=== PATIENT | male | born 1990 | race Caucasian/White ===

== ENCOUNTER 2023-08-17 06:54 | Emergency (ER) | payer MEDICAID, SELFPAY ==
[2023-08-17 07:13] VITALS: BP 134/85; PULSE 73; RESP 16; TEMP 36.7; O2SAT 99; BMI 34.4
--- NOTE | 2023-08-17 07:44 | ED_ITS ---
HPI - Headache General Chief Complaint: Headache Stated Complaint: Headache Time Seen by Provider: 08/17/23 07:36 Source: patient and interpreter and translator Mode of arrival: ambulatory Limitations: no limitations History of Present Illness HPI Narrative: 32 year old male with pmhx significant for HTN presents to the ED today with complaint of headache x1 day. Reports gradual onset of headache yesterday while at work. 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 Reports taking ibuprofen yesterday which temporarily reduced the pain. Reports waking up this morning with continued headache. Pain intensity rated 9/10. Describes pain as pounding in character and located on the left frontal aspect of his head. Additionally endorses intermittent blurred vision and photophobia. Denies flashes or floaters or vision loss. Denies hx of migraines. Reports taking his blood pressure this morning and it was normal. Reports taking his blood pressure medications this morning (losartan, amlodipine, metoprolol). Denies dizziness, scalp tenderness, jaw claudication, neck pain, chest pain, shortness of breath. Denies history of autoimmune disease. Additionally complains of acid reflux. Takes omeprazole for this at home and states this feels like his baseline. Related Data Previous Rx's Medication Instructions Recorded lisinopril 20 1 tab PO DAILY #30 tabs 07/22/20 mg-hydrochlorothiazide 12.5 mg tablet ondansetron 4 mg disintegrating 4 mg PO DAILY PRN nausea and 08/17/23 tablet vomiting 5 days #14 tabs Allergies Allergy/AdvReac Type Severity Reaction Status Date / Time No Known Allergies Allergy Verified 08/17/23 07:15 [No Known Allergies*] Review of Systems Review of Systems: Constitutional: No fever, chills, fatigue, night sweats, weight changes ENT/Mouth: No ear pain, hearing loss, nasal congestion, sinus pain, rhinorrhea, sore throat Eyes: No eye pain, swelling, redness, vision changes, discharge Cardio: No chest pain, palpitations, SANDERS, orthopnea, peripheral edema Pulm: No SOB, cough, sputum, wheezing, dyspnea, hemoptysis GI: No nausea, vomiting, hematemesis, abdominal pain, diarrhea, constipation, hematochezia, melena : No irregular bleeding, dysuria, frequency, urgency, hesitancy, hematuria, flank pain, urinary flow changes, urinary incontinence or retention MSK: No back pain, neck pain, joint pain, myalgias Skin: No lesions, rashes Neuro: No weakness, numbness, paresthesias, LOC, dizziness, +headache All other systems reviewed and are negative. [facility] Past Medical History Attestation statement: The following information was validated with the patient. Source: old records reviewed and nursing notes reviewed Social History Advance Directives: No Advance Directives Information Provided: Yes Physical Exam Vital Signs: Vital Signs: Last Vital Signs Temp 98.6 F 08/17/23 09:23 Pulse 66 08/17/23 09:23 Resp 16 08/17/23 09:23 BP 130/76 08/17/23 09:23 Pulse Ox 97 08/17/23 09:23 O2 Del Method Room Air 08/17/23 09:23 BMI result Body Mass Index 34.4 Vital signs stable Const: General: cooperative, healthy appearing, comfortable, no acute distress, alert and awake Orientation/consciousness: patient oriented x3 Limitations: no limitations HEENT: Head: Yes normal to inspection Ears: hearing grossly normal bilaterally General nose exam: Normal external nose present Eyes: General: appearance normal, both eyes and all related structures Conjunctivae: conjunctivae normal Sclerae: sclerae normal Pupils: Equal, round and reactive pupils present EOM: EOMs intact bilaterally Direct Ophthalmoscopy: normal light reflex, no photophobia, no papilledema, fundi normal bilaterally and anterior chamber normal Neck: Neck: Yes normal visual inspection, Yes full ROM, Yes no lymphadenopathy and Yes no meningeal signs Resp: Effort & Inspection: normal respiratory effort Auscultation: clear to auscultation bilaterally Cardio: Rate: regular rate Rhythm: regular rhythm Peripheral pulses: radial pulses present Back/Spine/Pelvis: Other: No midline spinous tenderness or step-off deformity. No paraspinal muscle tenderness to palpation. Skin: General skin exam: no rashes or lesions noted Neuro: Other: Strength 5/5 intact throughout.?No saddle anesthesia.?Sensation intact to light touch.?Neurovascular intact distally.? General: patient oriented x3, gait normal, moves all extremities, no meningeal signs and no focal motor deficits Cranial nerves: Yes CN's II-XII intact bilaterally and Yes Equal, round and reactive pupils present Gait exam (Neuro): Normal gait present Coordination: euvumd-ux-afli test normal, obfp-tu-yefb test normal and Normal rapid alternating movements of the distal upper extremity present (Neuro) Pupils: Normal pupillary reactivity/response: bilateral Extrem: General: Yes normal to inspection Course Course Course Narrative: 1040-- on re-evaluation, patient reports symptom improvement with Reglan, Toradol, Benadryl. He now rates his headache a 1 to 2/10. Patient's symptoms are consistent with headache. I do not suspect intracranial pathology as his exam is nonfocal and vital signs have remained stable while in the ED. Will send Ignacio to his pharmacy for nausea. Advised patient to take ibuprofen or Tylenol at home for headache. Advised patient to continue to monitor his BP at home. Discussed strict return precautions. All questions states at this time. Patient is agreeable disposition stable for discharge. Medications Administered Discontinued Medications Generic Name Dose Route Start Last Admin Trade Name Fazalq PRN Reason Stop Dose Admin Diphenhydramine HCl 50 mg 08/17/23 08:12 08/17/23 08:30 Diphenhydramine Hcl 50 Mg/Ml Vial IVPUSH 08/17/23 08:13 50 mg ONCE ONE Administration Sodium Chloride 1,000 mls @ 999 mls/hr 08/17/23 08:15 08/17/23 10:09 Ns IV 08/17/23 09:15 Infused .Q1H1M JULIANA Infusion Ketorolac Tromethamine 30 mg 08/17/23 08:12 08/17/23 08:30 Ketorolac Tromethamine 30 Mg/Ml Vial IVPUSH 08/17/23 08:13 30 mg ONCE ONE Administration Metoclopramide HCl 10 mg 08/17/23 08:12 08/17/23 08:30 Metoclopramide Hcl 10 Mg/2 Ml Vial IVPUSH 08/17/23 08:13 10 mg ONCE ONE Administration Medical Decision Making Medical Decision Making [facility] Narrative: 32 year old male with pmhx significant for HTN presents to the ED today with co mplaint of headache x1 day. Vital signs stable. Patient is nontoxic appearing and in no acute distress. Exam is nonfocal. Cerebellum intact. PERRLA. RRR. Lungs CTA bilaterally. Ambulating with steady gait. No scalp tenderness or palpable temporal artery. Clinical concern for headache vs migraine vs cluster RUSSELL vs hypertension. Unlikely giant cell arteritis, trigeminal neuralgia, ICH, CVA/TIA, cerebellar stroke, dissection. Plan at this time is pain control and re-evaluation. Differential Diagnosis Differential Diagnoses: The differential diagnosis associated with the presentation includes As above. Admission/Observation Not indicated. External Record Review External record reviewed: Inpatient record Tests considered The following testing was considered but not selected: I considered obtaining CT head/brain however exam is nonfocal, presentation consistent with headache and symptom improvement with pain management. Prescription Management I considered prescription management with: Pain Medication and Other (Antihistamine, antiemetic) Chronic Conditions Patient?s care impacted by: Hypertension Critical Care Time Critical Care Time Critical Care Time: No Discharge Plan Discharge Clinical Impression: Headache Patient Disposition: Home, Self-Care Instructions: General Headache (ED) Additional Instructions: Your headache improved with medications. You may take Tylenol and ibuprofen at home as needed for headache. Zofran is a medication that has been sent to your pharmacy. Take this as needed for nausea or vomiting. You may purchase qqmz-frx-[id number] magnesium supplements to help prevent headache. Please follow-up with your primary care physician as needed. You have also been provided with a referral to a neurologist. You may call them to establish care. They will not call you. If symptoms persist or worsen, please return to the emergency department. In the case of an emergency call 911. Hernández dolor de felix mejor? con medicamentos. Puede luzma Tylenol e ibuprofeno en casa seg?n sea necesario para el dolor de felix. Zofran es un medicamento que russell sido enviado a hernández farmacia. T?thacker seg?n sea necesario para las n?useas o los v?mitos. Puede comprar suplementos de magnesio de venta gokul para ayudar a prevenir el dolor de felix. Luis Antonio un seguimiento con hernández m?dico de atenci?n primaria seg?n sea necesario. Tambi?n se le russell remitido a un neur?logo. Puede llamarlos para establecer la atenci?n. No te llamar?n. Si los s?ntomas persisten o empeoran, regrese al departamento de emergencias. En rachana de emergencia llame al 911. Prescriptions: New ondansetron 4 mg tablet,disintegrating 4 mg PO DAILY PRN (Reason: nausea and vomiting) 5 Days Qty: 14 0RF No Action lisinopril-hydrochlorothiazide 20-12.5 mg tablet 1 tab PO DAILY Qty: 30 2RF Referrals: Leonid Mejía PA-C [Primary Care Provider] - Stand Alone Forms: Work/School Release Print Language: Comoran
[2023-08-17] MEDS: 0.9 % Sodium Chloride 1,000 ML 999 ML IV (08:27)
[2023-08-17] MEDS: Ketorolac Tromethamine 30 MG/ML VIAL IVPUSH (08:30)
[2023-08-17] MEDS: diphenhydrAMINE HCL 50 MG/ML VIAL IVPUSH (08:30)
[2023-08-17] MEDS: Metoclopramide HCl 10 MG/2 ML VIAL IVPUSH (08:30)
--- NOTE | 2023-08-17 08:31 | PC.NURSE ---
resting quietly in room on phone, complaining of headache. IV established and medicated per the MAR. patient offering no other complaints at this time. call schmid within reach
[2023-08-17 09:23] VITALS: BP 130/76; PULSE 66; RESP 16; TEMP 37; O2SAT 97
--- NOTE | 2023-08-17 09:48 | PC.NURSE ---
Addendum entered by Cele Vail 08/17/23 09:48: patient appears to be asleep, respirations even and unlabored. visitor at bedside. Original Note: patient appear
== END 2023-08-17 11:01 | disposition home or self-care (01) ==
PROVIDERS: Emergency Provider Emergency Medicine Emergency Medical Services; PCP Physician Assistant
DX: R51.9 Headache, unspecified (principal); H53.8 Other visual disturbances; K21.9 Gastro-esophageal reflux disease without esophagitis; Z79.899 Other long term (current) drug therapy
CPT/HCPCS: 96361; 96374; 96375; 99284; 99285; J1200; J1885; J2765

== ENCOUNTER 2023-09-15 11:28 | Outpatient (REF) | payer MEDICAID, SELFPAY ==
[2023-09-15 13:18] LABS: MANUAL DIFF FLAG NO
[2023-09-15 13:29] LABS: Basophils Absolute Auto 0.1 X10*3/uL (0.0-0.2); Basophils Percent Auto 0.6 % (0-2); Eosinophils Absolute Auto 0.2 X10*3/uL (0.0-0.4); Eosinophils Percent Auto 2.1 % (0-4); Hematocrit 42.7 % (42.0-52.0); Hemoglobin 14.5 g/dl (14.0-18.0); Imm Gran Abs Auto 0.02 X10*3/uL (0.00-0.03); Imm Gran Pct Auto 0.2 % (0.0-0.4); Lymphocytes Absolute Auto 1.3 X10*3/uL (1.2-4.9); Lymphocytes Percent Auto 15.1 % (20-40); Mean Corpuscular Hemoglobin 28.4 pg (27.0-33.0); Mean Corpuscular Volume 83.6 fL (80.0-98.0); Mean Platelet Volume 10.3 fL (9.4-12.4); Monocytes Absolute Auto 0.5 X10*3/uL (0.1-1.2); Monocytes Percent Auto 5.8 % (2-11); Neutrophils Absolute Auto 6.5 x10*3/uL (2.0-8.3); Neutrophils Percent Auto 76.2 % (45-73); Platelet Count 280 X10*3/uL (160-400); Red Blood Count 5.11 X10*6/uL (4.60-5.80); Red Cell Distribution Width 12.9 % (11.0-16.0); White Blood Count 8.6 X10*3/uL (4.8-10.8)
[2023-09-15 13:39] LABS: Estimated Average Glucose 114 mg/dL; Hemoglobin A1c % 5.6 % (<6.0)
[2023-09-15 13:46] LABS: Appearance Urine Clear; Color Urine Yellow; Glucose Urine UA Negative (Negative); Leukocyte Esterase Urine Negative (Negative); Nitrite Urine Negative (Negative); Specific Gravity - Urine 1.015 (1.005-1.025); Urine Blood Negative (Negative); Urine Ketones Negative (Negative); Urine Protein Negative (Neg-Trace)
[2023-09-15 13:54] LABS: Bacteria Urine None Seen (None Seen); Hyaline Casts Urine 0-2 /LPF (0-2); RBC Urine 0-2 /HPF (0-2); Squamous Epithelial Cell Urine 0-2 /HPF (0-2); WBC Urine 0-5 /HPF (0-5)
[2023-09-15 14:05] LABS: Creatinine Urine 60.96 mg/dL; Microalbum/Creatinine Ratio Ur 13.1 ug/mg cr (<30)
[2023-09-15 14:05] LABS: Alanine Aminotransferase 31 U/L (0-40); Albumin Level 4.7 g/dL (3.5-5.0); Alkaline Phosphatase 80 U/L (39-117); Anion Gap 10 (12-20); Aspartate Amino Transferase 22 U/L (5-37); Bilirubin Total 0.7 mg/dL (0.0-1.0); Blood Urea Nitrogen 19 mg/dL (9-16); Calcium 9.7 mg/dL (8.4-10.2); Carbon Dioxide 26 mmol/L (22-29); Chloride 104 mmol/L (96-108); Cholesterol 190 mg/dL (<200); Estimated Glomerular Filt Rate > 60; Glucose Random 102 mg/dL (60-115); HDL Cholesterol 44 mg/dL (>40); LDL Cholesterol Calculated 135 mg/dL (<100); Potassium 3.7 mmol/L (3.3-5.1); Sodium 136 mmol/L (135-145); Total Protein 7.6 g/dL (6.5-8.0); Triglycerides 55 mg/dL (<150)
[2023-09-15 14:06] LABS: HBS Num1 3.73 mIU/mL (0-7.99); HBc Num1 0.14 S/CO (0.00-0.79); HBsAGNum1 0.28 S/CO (0.00-0.99); HIV AB/AG Nonreactive (Nonreactive); HIV Num 1 0.04 S/CO (0.00-0.99); Hepatitis B Core Antibody Nonreactive (Nonreactive); Hepatitis B Surface Antigen Negative (Negative); Syphilis Screen Nonreactive (Nonreactive); ~HepC Num1 0.13 S/CO (0.00-0.79); ~Hepatitis B Surface Antibody NONREACTIVE (Nonreactive); ~Hepatitis C Antibody Nonreactive (Nonreactive)
[2023-09-15 14:10] LABS: TSH reflex Free T4 0.91 uIU/mL (0.32-4.0)
[2023-09-15 15:27] LABS: CT PCR NOT DETECTED (Not Detect.); NG PCR NOT DETECTED (Not Detect.)
[2023-09-17 13:43] LABS: H Pylori Breath Test Negative (Negative)
[2023-09-19 15:53] LABS: Metanephrine, Free 34 pg/mL (<=57); Normetanephrines, Free 183 pg/mL (<=148); Total Metanephrine, Free 217 pg/mL (<=205)
[2023-09-21 15:53] LABS: Creatinine Random Urine 61 mg/dL (20-320); Metanephrine, Free Rand Ur 55 mcg/g cr (32-134); Normetanephrine, Free Rand Ur 215 mcg/g cr (67-390); Total Metanephrine, Free RU 270 mcg/g cr (94-445)
[2023-09-22 16:53] LABS: Aldosterone/Renin Ratio 0.2 Ratio (0.9-28.9); Plasma Renin Activity 20.43 ng/mL/h (0.25-5.82)
== END 2023-09-15 11:29 | disposition home or self-care (01) ==
LOC: HO.HHCL 11:28
PROVIDERS: Visit Provider Student in an Organized Health Care Education/Training Program
DX: Z00.00 Encounter for general adult medical examination without abnormal findings (principal); I10 Essential (primary) hypertension; R10.13 Epigastric pain; Z11.3 Encounter for screening for infections with a predominantly sexual mode of transmission; Z13.1 Encounter for screening for diabetes mellitus; Z11.59 Encounter for screening for other viral diseases; Z13.220 Encounter for screening for lipoid disorders; Z13.29 Encounter for screening for other suspected endocrine disorder
CPT/HCPCS: 0353U; 80053; 80061; 81001; 82043; 82088; 82533; 82570; 83013; 83036; 83835; 84443; 85025; 86704; 86706; 86780; 86803; 87340; 87389

== ENCOUNTER 2023-11-12 09:22 | Outpatient (AMB) | payer MEDICAID, SELFPAY ==
--- NOTE | 2023-11-12 09:53 | MHC.OFFVIS ---
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 Intake Note: Patient presents for Feeling tired often and falling asleep during the day, snoring often, wakes up gasping for air during the night Allergies No Known Allergies [No Known Allergies*] Allergy (Verified 11/12/23 09:57) HPI HPI Comments History of Present Illness Details 33 y/o male patient presents for new in-person visit for sleep consultation. 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 Pt reports snoring, disrupted sleep, with daytime sleepiness. Pt states that he can't sleep well, wakes up several times and having frequent urination at night. Pt has non refreshing sleep, being tired all day and can easily fall asleep during daytime. Sleep questionnaire: Have you ever been diagnosed with a sleep disorder? No. Have you ever had a sleep study in the past? No. Have you ever been treated for a sleep disorder? No. Do you take medications for a sleep disorder? No. Do you snore? Yes. Do you wake up gasping at night? Yes. Do you have episodes of apneas? Yes. If yes, are they witnessed? Yes. Do you have episodes of nocturnal chest pain or dyspnea? Yes. Do you have difficulty initiating sleep? Yes. Do you have difficulty maintaining sleep? Yes. Do you wake up tired? Yes. Do you have headaches upon awakening? Yes. Do you wake up with dry mouth or throat? Yes. Do you have GERD? Yes. Do you have nocturia? Yes. Do you have nocturnal leg cramps? Yes. Do you have symptoms of restless legs? No. Do you act out your dreams? No. Sleep hygiene questionnaire: What is your usual sleep routine? Usual bedtime is at 9-10 pm ; Usual wake up time is at 3 am. Do you take naps? No. Is your sleep environment cool, dark, and quiet? Yes. Do you exercise? No. Do you take caffeine or other stimulants? Coffee in the morning. Do you use electronics in bed? What is your work schedule? 5 am to 4 pm. Hypersomnolence questionnaire: Do you have daytime tiredness or fatigue? Yes. Do you easily fall asleep when inactive? Yes. Have you ever had episodes of sudden weakness? No. Have you ever had episodes of sudden weakness associated with strong emotions? No. PFSH Family History (Updated 11/12/23 @ 10:08 by Soha Xiong CMA) Father Diabetes High blood cholesterol Sleep apnea Mother Thyroid disease Diabetes High blood cholesterol Sister Asthma Social History (Updated 11/12/23 @ 10:09 by Shoa Xiong CMA) Alcohol intake: former Patient Tobacco Use Status: Never used Tobacco Review of Systems Const All systems reviewed & are unremarkable except as noted in HPI and below Physical Exam Vital Signs: Last Vital Signs Pulse 63 11/12/23 10:10 BP 132/80 11/12/23 10:10 Pulse Ox 97 11/12/23 10:10 Oxygen Delivery Method Room Air 11/12/23 10:10 BMI result Body Mass Index 33.3 Const General: cooperative Nutritional Appearance: obese Orientation/consciousness: patient oriented x3 Limitations: language barrier Neck Neck: Yes full ROM and Yes supple Resp Effort & Inspection: normal respiratory effort and able to speak in complete sentences Neuro General: patient oriented x3 and gait normal Cranial nerves: Yes CN's II-XII intact bilaterally Cognition (Neuro): normal cognition Gait exam (Neuro): Normal gait present Motor exam (neuro): 5/5 motor strength present throughout Psych Appearance: grossly normal Mental Status: mental status grossly normal Speech and movement: Normal speech and movement present Affect: normal affect Attitude: cooperative Assessment & Plan Assessment & Plan (1) Daytime sleepiness: Code(s): R40.0 - Somnolence (2) Snoring: Code(s): R06.83 - Snoring Plan Pt is advised to undergo home sleep study to assess for sleep apnea. Will f/u with pt after study to discuss results and appropriate treatment options. Sleep hygiene education provided, wt reduction advised. Pt to call with any worsening concerns or questions. Orders: Orders RT home sleep study 11/12/23 R06.83 - Snoring, R40.0 - Somnolence Coding Level of Care Code New Pt Level 3 (70715) Diagnoses Daytime sleepiness R40.0 Snoring R06.83
[2023-11-12 10:10] VITALS: BP 132/80; PULSE 63; O2SAT 97; BMI 33.3
== END 2023-11-12 10:38 | disposition home or self-care (01) ==
PROVIDERS: PCP Physician Assistant; Visit Provider Nurse Practitioner Family
DX: R40.0 Somnolence (principal); R06.83 Snoring
CPT/HCPCS: 99203

== ENCOUNTER → 2023-11-12 09:22 | Outpatient (BNVA) | payer MEDICAID, SELFPAY | PROVIDERS: PCP Physician Assistant; Visit Provider Nurse Practitioner Family | DX: R40.0 Somnolence (principal); R06.83 Snoring | CPT/HCPCS: 99212 ==

== ENCOUNTER 2023-12-30 09:58 | Outpatient (REF) | payer MEDICAID, SELFPAY ==
--- NOTE | ~2023-12-30 | US_ITS ---
EXAMINATION: ULTRASOUND RENAL WITH DOPPLER CLINICAL INFORMATION: Hypertension diagnosed at 18 years of age. Resistant hypertension. COMPARISON: None. TECHNIQUE: Real-time grayscale, color Doppler, and duplex Doppler evaluation of the kidneys and renal vasculature was performed. FINDINGS: RENAL MEASUREMENTS: Right: 10.5 x 5.3 x 5.6 cm (Sag x AP x TV) Left: 11.7 x 7.6 x 6.7 cm (Sag x AP x TV) The renal parenchyma appears normal. 1.2 cm simple cyst in the lower pole right kidney, no follow-up imaging is recommended. No hydronephrosis or nephrolithiasis. DOPPLER INTERROGATION: AORTA: Mid aorta: 119 cm/sec RIGHT MAIN RENAL ARTERY: Proximal: 104 cm/sec Mid: 107 cm/sec Distal: 102 cm/sec LEFT MAIN RENAL ARTERY: Proximal: 178 cm/sec Mid: 114 cm/sec Distal: 81 cm/sec RENAL-AORTIC RATIO (RAR): Right: Not calculated due to mid aortic velocity outside of range 40-100 cm/s making RAR inaccurate. Left: Not calculated due to mid aortic velocity outside of range 40-100 cm/s making RAR inaccurate. SEGMENTAL RESISTIVE INDICES: Right: 0.61-0.69 Left: 0.59-0.68 RENAL VEINS: Right: Patent with normal waveform. Left: Patent with normal waveform. US/US renal doppler IMPRESSION: No evidence of hemodynamically significant renal artery stenosis.
--- NOTE | ~2023-12-30 | US_ITS ---
EXAMINATION: ULTRASOUND RENAL WITH DOPPLER CLINICAL INFORMATION: Hypertension diagnosed at 18 years of age. Resistant hypertension. COMPARISON: None. TECHNIQUE: Real-time grayscale, color Doppler, and duplex Doppler evaluation of the kidneys and renal vasculature was performed. FINDINGS: RENAL MEASUREMENTS: Right: 10.5 x 5.3 x 5.6 cm (Sag x AP x TV) Left: 11.7 x 7.6 x 6.7 cm (Sag x AP x TV) The renal parenchyma appears normal. 1.2 cm simple cyst in the lower pole right kidney, no follow-up imaging is recommended. No hydronephrosis or nephrolithiasis. DOPPLER INTERROGATION: AORTA: Mid aorta: 119 cm/sec RIGHT MAIN RENAL ARTERY: Proximal: 104 cm/sec Mid: 107 cm/sec Distal: 102 cm/sec LEFT MAIN RENAL ARTERY: Proximal: 178 cm/sec Mid: 114 cm/sec Distal: 81 cm/sec RENAL-AORTIC RATIO (RAR): Right: Not calculated due to mid aortic velocity outside of range 40-100 cm/s making RAR inaccurate. Left: Not calculated due to mid aortic velocity outside of range 40-100 cm/s making RAR inaccurate. SEGMENTAL RESISTIVE INDICES: Right: 0.61-0.69 Left: 0.59-0.68 RENAL VEINS: Right: Patent with normal waveform. Left: Patent with normal waveform. US/US renal BI IMPRESSION: No evidence of hemodynamically significant renal artery stenosis.
== END 2023-12-30 09:59 | disposition home or self-care (01) ==
LOC: HO.US 09:58
PROVIDERS: PCP Physician Assistant; Referring Provider Nurse Practitioner Family; Visit Provider Student in an Organized Health Care Education/Training Program
DX: R40.0 Somnolence (principal); I10 Essential (primary) hypertension; R06.83 Snoring
CPT/HCPCS: 76775; 93975; 95806

== ENCOUNTER → 2023-12-30 11:49 | Outpatient (BNV) | payer MEDICAID, SELFPAY | PROVIDERS: PCP Physician Assistant; Referring Provider Nurse Practitioner Family; Visit Provider Psychiatry & Neurology Neurology | DX: G47.33 Obstructive sleep apnea (adult) (pediatric) (principal) | CPT/HCPCS: 95806 ==

== ENCOUNTER 2024-01-19 21:49 | Emergency (ER) | payer MEDICAID, SELFPAY ==
--- NOTE | 2024-01-19 | ECG_ITS ---
Test Reason : CHEST PAIN Blood Pressure : / mmHG Vent. Rate : 089 BPM Atrial Rate : 089 BPM P-R Int : 158 ms QRS Dur : 096 ms QT Int : 340 ms P-R-T Axes : 039 041 009 degrees QTc Int : 413 ms Normal sinus rhythm with sinus arrhythmia Normal ECG No previous ECGs available Referred By: Generic ED Physician Electronically Signed By:CHARLOTTE VELARDE MD
--- NOTE | ~2024-01-19 | XR_ITS ---
EXAMINATION: XR CHEST CLINICAL INFORMATION: Chest pain. Cough. COMPARISON: None available. TECHNIQUE: Frontal view of the chest was obtained. FINDINGS: No significant abnormality is noted involving the heart, lungs, mediastinum, bony thorax or soft tissues. XR/XR chest 1V IMPRESSION: Unremarkable examination.
[2024-01-19 22:28] VITALS: BP 153/82; PULSE 85; RESP 18; TEMP 37.1; O2SAT 100; BMI 31.6
[2024-01-19 22:44] LABS: MANUAL DIFF FLAG NO
[2024-01-19 22:46] LABS: Basophils Absolute Auto 0.1 X10*3/uL (0.0-0.2); Basophils Percent Auto 0.6 % (0-2); Eosinophils Absolute Auto 0.3 X10*3/uL (0.0-0.4); Eosinophils Percent Auto 2.9 % (0-4); Hematocrit 44.9 % (42.0-52.0); Hemoglobin 15.6 g/dl (14.0-18.0); Imm Gran Abs Auto 0.03 X10*3/uL (0.00-0.03); Imm Gran Pct Auto 0.3 % (0.0-0.4); Lymphocytes Absolute Auto 2.7 X10*3/uL (1.2-4.9); Lymphocytes Percent Auto 26.8 % (20-40); Mean Corpuscular HGB Conc 34.7 g/dl (31.0-36.0); Mean Corpuscular Hemoglobin 28.5 pg (27.0-33.0); Mean Corpuscular Volume 82.1 fL (80.0-98.0); Mean Platelet Volume 9.8 fL (9.4-12.4); Monocytes Absolute Auto 0.7 X10*3/uL (0.1-1.2); Monocytes Percent Auto 6.7 % (2-11); Neutrophils Absolute Auto 6.4 x10*3/uL (2.0-8.3); Neutrophils Percent Auto 62.7 % (45-73); Platelet Count 291 X10*3/uL (160-400); Red Blood Count 5.47 X10*6/uL (4.60-5.80); Red Cell Distribution Width 12.9 % (11.0-16.0); White Blood Count 10.2 X10*3/uL (4.8-10.8)
[2024-01-19 22:59] LABS: Alanine Aminotransferase 31 U/L (0-40); Albumin Level 4.8 g/dL (3.5-5.0); Alkaline Phosphatase 89 U/L (39-117); Anion Gap 12 (12-20); Aspartate Amino Transferase 21 U/L (5-37); Bilirubin Total 0.3 mg/dL (0.0-1.0); Blood Urea Nitrogen 15 mg/dL (9-16); Calcium 9.6 mg/dL (8.4-10.2); Carbon Dioxide 28 mmol/L (22-29); Chloride 102 mmol/L (96-108); Creatinine Clr Calc Pharmacy 102.2; Estimated Glomerular Filt Rate > 60; Glucose Random 112 mg/dL (60-115); Potassium 3.7 mmol/L (3.3-5.1); Sodium 138 mmol/L (135-145); Total Protein 7.9 g/dL (6.5-8.0)
[2024-01-19 23:12] LABS: Troponin-I High Sensitivity < 2.7 ng/L (<3.5-35.0)
[2024-01-20 02:51] LABS: Troponin-I High Sensitivity < 2.7 ng/L (<3.5-35.0)
[2024-01-20 03:10] VITALS: BP 151/83; PULSE 116; RESP 18; TEMP 36.4; O2SAT 100
--- NOTE | 2024-01-20 03:50 | ED_ITS ---
HPI - Chest Pain General Chief Complaint: Chest Pain Stated Complaint: Chest pain Time Seen by Provider: 01/20/24 03:50 History of Present Illness HPI narrative: The patient is a 33-year-old male who says that at around 20:00 earlier this evening he stood up from bending over and had severe pain in his chest that has been quite persistent. It is worse when he breathes. Also worse with movements of lifting his arm. He did not do anything unusual today which could have caused any kind of an injury. He did not have any straining activities or lifting activities. Fact he spent today going to doctor's appointments. He has had problems with his throat and his voice and was at an ENT appointment earlier today. The patient says he has had this pain before in the past when he has lifted heavy objects. No fever, sweats, chills. No cough or sputum. Pain is primarily in the center of his chest but also somewhat on the left side and it radiates to the back. Related Data Home Medications ?Medication ?Instructions ?Recorded ?Confirmed amlodipine 5 mg tablet 5 mg PO Q12H 11/12/23 famotidine 40 mg tablet 40 mg PO QPM 11/12/23 losartan 100 1 tab PO QAM 11/12/23 mg-hydrochlorothiazide 25 mg tablet metoprolol succinate 50 mg 50 mg PO QAM 11/12/23 tablet,extended release 24 hr Previous Rx's ?Medication ?Instructions ?Recorded lisinopril 20 1 tab PO DAILY #30 tabs 07/22/20 mg-hydrochlorothiazide 12.5 mg tablet ondansetron 4 mg disintegrating 4 mg PO DAILY PRN nausea and 08/17/23 tablet vomiting 5 days #14 tabs Allergies Allergy/AdvReac Type Severity Reaction Status Date / Time No Known Allergies Allergy Verified 01/19/24 22:32 [No Known Allergies*] Review of Systems 2 Review of Systems: Yes all other systems are reviewed and are negative [facility] Family History Family History (Updated 11/12/23 @ 10:08 by Soha Xiong CMA) Father Diabetes High blood cholesterol Sleep apnea Mother Thyroid disease Diabetes High blood cholesterol Sister Asthma Social History Social History (Updated 11/12/23 @ 10:09 by Soha Xiong CMA) Alcohol intake: former Patient Tobacco Use Status: Never used Tobacco Smoked in Last 30 Days: No Use of substances other than those prescribed or required for medical reasons: No Advance Directives: No Advance Directives Information Provided: Yes Do you have a plan to hurt others: No Plan Physical Exam 2 Vital Signs: Vital Signs: Last Vital Signs Temp 98.0 F 01/20/24 05:08 Pulse 76 01/20/24 05:08 Resp 16 01/20/24 05:08 BP 139/76 01/20/24 05:08 Pulse Ox 100 01/20/24 03:10 O2 Del Method Room Air 01/20/24 03:10 BMI result Body Mass Index 31.6 Const: Other: The patient is awake, alert, cooperative, does not appear in obvious distress. HEENT: Other: Face is symmetrical. Mucous membranes moist. Eyes: Other: Pupils are round equal, conjunctivae clear Neck: Other: No JVD Chest: Other: No obvious chest wall tenderness Resp: Effort & Inspection: normal respiratory effort Auscultation: clear to auscultation bilaterally Cardio: Rate: regular rate Rhythm: regular rhythm Heart sounds: S1 normal heart sound present and S2 normal heart sound present GI: Other: Abdomen is soft and nontender Skin: Other: Skin is dry and unremarkable Neuro: Other: The patient is awake and alert. Face is symmetrical. He has a gravelly voice but this is apparently the reason he is seeing the ENT doctor. This is not a new problem. He moves his extremities normally and seems otherwise neurologically intact. Extrem: Other: No calf swelling or tenderness. No pitting edema. No asymmetry. Medications Administered Discontinued Medications Generic Name Dose Route Start Last Admin Trade Name Freq PRN Reason Stop Dose Admin Ketorolac Tromethamine 30 mg 01/20/24 04:01 01/20/24 04:54 Ketorolac Tromethamine 30 Mg/Ml Vial IM 01/20/24 04:02 30 mg ONCE ONE Administration Medical Decision Making Medical Decision Making MDM Narrative: The patient is a 33-year-old male who presents with chest pain that is worse with breathing. He has an unremarkable EKG. His troponins were flat. His physical exam is reassuring although there is no clear evidence of reproducible pain which might lead to a diagnosis of chest wall pain. A D-dimer was done that was negative, thereby excluding a pulmonary embolism. Overall the patient was reassured. He should plan on following up with his regular doctor. Lab Data 01/19/24 22:40 01/19/24 22:40 Labs: Lab Results 01/19/24 01/20/24 01/20/24 Range/Units 22:40 02:23 04:08 WBC 10.2 (4.8-10.8) X10*3/uL RBC 5.47 (4.60-5.80) X10*6/uL Hgb 15.6 (14.0-18.0) g/dl Hct 44.9 (42.0-52.0) % MCV 82.1 (80.0-98.0) fL MCH 28.5 (27.0-33.0) pg MCHC 34.7 (31.0-36.0) g/dl RDW 12.9 (11.0-16.0) % Plt Count 291 (160-400) X10*3/uL MPV 9.8 (9.4-12.4) fL Immature Gran % (Auto) 0.3 (0.0-0.4) % Neut % (Auto) 62.7 (45-73) % Lymph % (Auto) 26.8 (20-40) % Ward % (Auto) 6.7 (2-11) % Eos % (Auto) 2.9 (0-4) % Baso % (Auto) 0.6 (0-2) % Lymph # (Auto) 2.7 (1.2-4.9) X10*3/uL Ward # (Auto) 0.7 (0.1-1.2) X10*3/uL Eos # (Auto) 0.3 (0.0-0.4) X10*3/uL Baso # (Auto) 0.1 (0.0-0.2) X10*3/uL Abs Immat Gran (auto) 0.03 (0.00-0.03) X10*3/uL Absolute Neuts (auto) 6.4 (2.0-8.3) x10*3/uL Absolute Nucleated RBC 0.000 (0.0-0.012) X10*3/uL Nucleated RBC % (auto) 0.0 (0.0-0.2) /100WBC D-Dimer High Sensitivty < 150 NG/ML Sodium 138 (135-145) mmol/L Potassium 3.7 (3.3-5.1) mmol/L Chloride 102 (96-108) mmol/L Carbon Dioxide 28 (22-29) mmol/L Anion Gap 12 (12-20) BUN 15 (9-16) mg/dL Creatinine 1.24 (0.5-1.4) mg/dL Estim Creat Clear Calc 102.2 Estimated GFR > 60 Random Glucose 112 (60-115) mg/dL Calcium 9.6 (8.4-10.2) mg/dL Total Bilirubin 0.3 (0.0-1.0) mg/dL AST 21 (5-37) U/L ALT 31 (0-40) U/L Alkaline Phosphatase 89 (39-117) U/L Troponin I High Sens < 2.7 < 2.7 (<3.5-35.0) ng/L Total Protein 7.9 (6.5-8.0) g/dL Albumin 4.8 (3.5-5.0) g/dL Independent Interpretation I performed an independent interpretation of an: EKG Interpretation: EKG at 21:52 shows normal sinus rhythm with a sinus arrhythmia at 89 beats per minute. Unremarkable EKG. No previous EKGs for comparison. Discharge Plan Discharge Clinical Impression: Chest pain Patient Disposition: Home, Self-Care Additional Instructions: Your testing in the emergency room today is very reassuring. There is no sign of a heart attack, a blood clot in your lungs, or other acutely worrisome problems. I suspect your pain is probably a muscular pain. You may use ibuprofen and/or acetaminophen as needed for pain. Please follow up with your regular doctor to discuss this further. Return to the emergency room if you feel significantly worse. Prescriptions: No Action lisinopril-hydrochlorothiazide 20-12.5 mg tablet 1 tab PO DAILY Qty: 30 2RF ondansetron 4 mg tablet,disintegrating 4 mg PO DAILY PRN (Reason: nausea and vomiting) 5 Days Qty: 14 0RF losartan-hydrochlorothiazide 100-25 mg tablet 1 tab PO QAM metoprolol succinate 50 mg tablet extended release 24 hr 50 mg PO QAM amlodipine 5 mg tablet 5 mg PO Q12H famotidine 40 mg tablet 40 mg PO QPM Referrals: Leonid Mejía PA-C [Primary Care Provider] - (Positional chest pain) Stand Alone Forms: Work/School Release Interventions: ED Discharge Assessment Last Done: 01/20/24 05:08 Discharge Date/Time: 01/20/24 05:10 Print Language: Colombian
[2024-01-20 04:23] LABS: D Dimer High Sensitivity < 150 NG/ML
[2024-01-20] MEDS: Ketorolac Tromethamine 30 MG/ML VIAL IM (04:54)
[2024-01-20 05:08] VITALS: BP 139/76; PULSE 76; RESP 16; TEMP 36.7
== END 2024-01-20 05:10 | disposition home or self-care (01) ==
PROVIDERS: Emergency Provider Emergency Medicine; PCP Physician Assistant
DX: R07.89 Other chest pain (principal); M79.602 Pain in left arm; M79.601 Pain in right arm; Z79.899 Other long term (current) drug therapy
CPT/HCPCS: 36415; 71045; 80053; 84484; 85025; 85379; 93005; 96372; 99284; 99285; J1885

== ENCOUNTER → 2024-01-19 21:52 | Outpatient (BNV) | payer MEDICAID, SELFPAY | PROVIDERS: Emergency Provider Emergency Medicine; PCP Physician Assistant; Visit Provider Internal Medicine Cardiovascular Disease | DX: R07.9 Chest pain, unspecified (principal); I49.9 Cardiac arrhythmia, unspecified | CPT/HCPCS: 93010 ==

== ENCOUNTER 2024-03-03 13:34 | Outpatient (REF) | payer MEDICAID, SELFPAY ==
[2024-03-08 14:49] LABS: Metanephrine, Free <25 pg/mL (<=57); Normetanephrines, Free 106 pg/mL (<=148); Total Metanephrine, Free 106 pg/mL (<=205)
== END 2024-03-03 13:35 | disposition home or self-care (01) ==
LOC: HO.HHCL 13:34
PROVIDERS: Visit Provider Student in an Organized Health Care Education/Training Program
DX: I10 Essential (primary) hypertension (principal)
CPT/HCPCS: 36415; 83835

== ENCOUNTER 2024-03-10 10:30 | Outpatient (AMB) | payer MEDICAID, SELFPAY ==
[2024-03-10 10:45] VITALS: BMI 35.0
--- NOTE | 2024-03-10 10:45 | MHC.OFFVIS ---
Vital Signs 03/10/24 10:45 Height 5 ft 10 in Weight 244 lb 4 oz BMI 35.0 Intake Visit Reasons: 4 follow up Snoring - Conf Intake Note: Patient presents for 4 month follow up snoring. Patient got the machine but not using it because mask keeps falling off face due to him moving while sleeping. Allergies No Known Allergies [No Known Allergies*] Allergy (Verified 03/10/24 10:50) Medication List - Last Reconciled 03/10/24 by BRY Esparza amlodipine 5 mg PO Q12H famotidine 40 mg PO QPM lisinopril-hydrochlorothiazide 20-12.5 mg 1 tab PO DAILY losartan-hydrochlorothiazide 100-25 mg 1 tab PO QAM metoprolol succinate ER 50 mg PO QAM ondansetron 4 mg PO DAILY PRN 5 days HPI Comments Details: 33-yr-old male presents for follow-up visit for sleep apnea. Since the last visit, pt underwent HST, which revealed: mild sleep apnea w/ AHI 9.4/hr and O2 kacy 80%. SpO2 < 90% x's 20 min, < 88% x's 5 min. Pt has since received a PAP machine. Pt tried it one night, but the mask was too small and kept moving- so he has not been able to use it since. He did have an ENT consult this am for chronic hoarse voice, throat pain and coughing about sustained talking. Pt states he was given a nasal spray and has been advised to undergo face and neck [facility] Family History Father Diabetes High blood cholesterol Sleep apnea Mother Thyroid disease Diabetes High blood cholesterol Sister Asthma Social History Alcohol intake: former Patient Tobacco Use Status: Never used Tobacco Review of Systems Const All systems reviewed & are unremarkable except as noted in HPI and below Physical Exam Vital Signs: BMI result Body Mass Index 35.0 Const General: no acute distress Orientation/consciousness: patient oriented x3 HEENT Other: Hoarse voice Mallampati stage IV Neuro General: patient oriented x3 Psych Mental Status: mental status grossly normal Speech and movement: Clear speech present Attitude: cooperative Results Reviewed Results Reviewed: HST report- see HPI. Assessment & Plan Assessment & Plan (1) Mild obstructive sleep apnea: Code(s): G47.33 - Obstructive sleep apnea (adult) (pediatric) Category: Medical Plan Reviewed HST results- mild MICHAEL w/ mild degree of pulse oximtery. Pt encouraged to try to increase APAP use 5-51dsH1I nightly > 4 hrs, as he does have concomitant HTN. Will request new PAP fitting. Will request recent ENT consult note. Pt advised to call us w/ any questions or concerns. f/u in 6 months or sooner prn. Coding Level of Care Code Est Pt Level 3 (92324) Diagnoses Mild obstructive sleep apnea G47.33
== END 2024-03-10 11:24 | disposition home or self-care (01) ==
PROVIDERS: PCP Physician Assistant; Visit Provider Nurse Practitioner Family
DX: G47.33 Obstructive sleep apnea (adult) (pediatric) (principal)
CPT/HCPCS: 99213

== ENCOUNTER → 2024-03-10 10:30 | Outpatient (BNVA) | payer MEDICAID, SELFPAY | PROVIDERS: PCP Physician Assistant; Visit Provider Nurse Practitioner Family | DX: G47.33 Obstructive sleep apnea (adult) (pediatric) (principal) | CPT/HCPCS: 99212 ==

== ENCOUNTER 2024-08-31 10:25 | Outpatient (REF) | payer MEDICAID, SELFPAY ==
[2024-08-31 11:19] LABS: Hematocrit 42.2 % (42.0-52.0); Hemoglobin 14.6 g/dl (14.0-18.0); Mean Corpuscular HGB Conc 34.6 g/dl (31.0-36.0); Mean Corpuscular Hemoglobin 28.7 pg (27.0-33.0); Mean Corpuscular Volume 83.1 fL (80.0-98.0); Mean Platelet Volume 10.1 fL (9.4-12.4); Platelet Count 243 X10*3/uL (160-400); Red Blood Count 5.08 X10*6/uL (4.60-5.80); Red Cell Distribution Width 13.1 % (11.0-16.0)
[2024-08-31 11:28] LABS: Appearance Urine Clear; Color Urine Yellow; Estimated Average Glucose 117 mg/dL; Glucose Urine UA Negative (Negative); Hemoglobin A1c % 5.7 % (<6.0); Leukocyte Esterase Urine Negative (Negative); Nitrite Urine Negative (Negative); Specific Gravity - Urine 1.015 (1.005-1.025); Total Hemoglobin (HGBA1C) 3642.4797 umol/L; Urine Blood Negative (Negative); Urine Ketones Negative (Negative); Urine Protein Negative (Neg-Trace)
[2024-08-31 11:32] LABS: Bacteria Urine None Seen (None Seen); Hyaline Casts Urine 0-2 /LPF (0-2); RBC Urine 0-2 /HPF (0-2); Squamous Epithelial Cell Urine 0-2 /HPF (0-2); WBC Urine 0-5 /HPF (0-5)
[2024-08-31 12:28] LABS: Creatinine Urine 83.93 mg/dL; Microalbum/Creatinine Ratio Ur 7.1 ug/mg cr (<30)
[2024-08-31 12:30] LABS: Alanine Aminotransferase 37 U/L (0-40); Albumin Level 4.5 g/dL (3.5-5.0); Alkaline Phosphatase 68 U/L (39-117); Anion Gap 9 (12-20); Aspartate Amino Transferase 22 U/L (5-37); Bilirubin Total 0.7 mg/dL (0.0-1.0); Blood Urea Nitrogen 17 mg/dL (9-16); Calcium 9.2 mg/dL (8.4-10.2); Carbon Dioxide 29 mmol/L (22-29); Chloride 104 mmol/L (96-108); Cholesterol 159 mg/dL (<200); Estimated Glomerular Filt Rate > 60; Glucose Random 92 mg/dL (60-115); HDL Cholesterol 38 mg/dL (>40); LDL Cholesterol Calculated 110 mg/dL (<100); Potassium 3.5 mmol/L (3.3-5.1); Sodium 138 mmol/L (135-145); Total Protein 7.3 g/dL (6.5-8.0); Triglycerides 57 mg/dL (<150)
[2024-08-31 12:35] LABS: Cortisol Random 12.4 ug/dL
[2024-08-31 12:40] LABS: Syphilis Screen Nonreactive (Nonreactive)
[2024-08-31 12:42] LABS: HBS Num1 1.96 mIU/mL (0-7.99); HBc Num1 0.05 S/CO (0.00-0.79); HBsAGNum1 0.57 S/CO (0.00-0.99); HIV AB/AG Nonreactive (Nonreactive); HIV Num 1 0.05 S/CO (0.00-0.99); Hepatitis B Core Antibody Nonreactive (Nonreactive); Hepatitis B Surface Antigen Negative (Negative); ~HepC Num1 0.09 S/CO (0.00-0.79); ~Hepatitis B Surface Antibody NONREACTIVE (Nonreactive); ~Hepatitis C Antibody Nonreactive (Nonreactive)
[2024-08-31 12:47] LABS: TSH reflex Free T4 1.31 uIU/mL (0.32-4.0)
[2024-08-31 13:16] LABS: CT PCR NOT DETECTED (Not Detect.); NG PCR NOT DETECTED (Not Detect.)
[2024-09-07 12:33] LABS: Aldosterone/Renin Ratio 0.3 Ratio (0.9-28.9); Plasma Renin Activity 13.79 ng/mL/h (0.25-5.82)
== END 2024-08-31 10:26 | disposition home or self-care (01) ==
LOC: HO.HHCL 10:25
PROVIDERS: Visit Provider Student in an Organized Health Care Education/Training Program
DX: Z00.00 Encounter for general adult medical examination without abnormal findings (principal); I10 Essential (primary) hypertension
CPT/HCPCS: 80053; 80061; 81001; 82043; 82088; 82533; 82570; 83036; 84443; 85027; 86704; 86706; 86780; 86803; 87340; 87389; 87491; 87591

== ENCOUNTER 2024-08-31 11:04 | Outpatient (REF) | payer MEDICAID, SELFPAY ==
[2024-08-31 12:53] LABS: Alanine Aminotransferase 39 U/L (0-40); Albumin Level 4.7 g/dL (3.5-5.0); Alkaline Phosphatase 72 U/L (39-117); Anion Gap 9 (12-20); Aspartate Amino Transferase 23 U/L (5-37); Bilirubin Total 0.7 mg/dL (0.0-1.0); Blood Urea Nitrogen 16 mg/dL (9-16); Calcium 9.9 mg/dL (8.4-10.2); Carbon Dioxide 29 mmol/L (22-29); Chloride 104 mmol/L (96-108); Estimated Glomerular Filt Rate > 60; Glucose Random 91 mg/dL (60-115); HBc Num1 0.07 S/CO (0.00-0.79); Hepatitis B Core Antibody Nonreactive (Nonreactive); Potassium 3.8 mmol/L (3.3-5.1); Sodium 138 mmol/L (135-145); Total Protein 7.6 g/dL (6.5-8.0)
[2024-08-31 15:01] LABS: CT PCR NOT DETECTED (Not Detect.); NG PCR NOT DETECTED (Not Detect.)
== END 2024-08-31 11:05 | disposition home or self-care (01) ==
LOC: HO.LAB 11:04
PROVIDERS: PCP Student in an Organized Health Care Education/Training Program; Visit Provider Student in an Organized Health Care Education/Training Program
DX: I10 Essential (primary) hypertension (principal); Z00.00 Encounter for general adult medical examination without abnormal findings
CPT/HCPCS: 80053; 86704; 87491; 87591

== ENCOUNTER 2024-09-27 16:45 | Emergency (ER) | payer MEDICAID, SELFPAY ==
--- NOTE | ~2024-09-27 | CT_ITS ---
CLINICAL HISTORY: headache CT head without contrast Comparison: None Findings: No intracranial mass, midline shift, hydrocephalus, or acute hemorrhage. There is near-complete opacification of the visualized portion of the right maxillary sinus. Minimal opacification of the left ethmoid air cells present. The bilateral mastoid air cells appear clear. No acute skull fracture. Impression: 1. No acute intracranial abnormality. No acute intracranial hemorrhage. 2. Near-complete opacification of the right maxillary sinus partially visualized. This document has been electronically signed by: Oleg Perdomo MD on 09/27/2024 22:02:15
--- OUTSIDE RECORDS SUMMARY | 2024-09-27 16:47 | XMS_ITS | Continuity of Care Document ---
Author Organization [facility] Address [address] [place] [address]- Care Team Providers Care Offender Job Retention Specialist Name Role Phone Harry Keane MD, Esther Ocampo Primary Care Kleber karin Encounter [facility] Date(s): 08/17/24 - 09/16/24 [facility] [address] [place] [id number]- Attending Physician: Kevin Handley Admitting Physician: Kevin Handley Referring Physician: Admtr, [id number] Encounter Type: Triage Allergies, Adverse Reactions, Alerts No Known Allergies Medications amLODIPine 5 mg oral tablet 1 tablet = 5 mg, By Mouth, Daily, # 30 tablet, 0 Refills, Maintenance, 09/11/24 1:20:00 PM EST, Tablet, Partial fill upon patient request if the prescription is for a schedule II opioid drug. Start Date: 09/11/24 Status: Ordered Quantity: 30.0 Unit: tablet Repeat number: 1 famotidine 20 mg oral tablet Refills 0, Maintenance, 09/11/24 1:20:00 PM EST, Partial fill upon patient request if the prescription is for a schedule II opioid drug. Start Date: 09/11/24 Status: Ordered Repeat number: 1 hydrochlorothiazide-losartan 25 mg-100 mg oral tablet 1 tablet, By Mouth, Daily, # 30 tablet, 0 Refills, Maintenance, 09/11/24 1:19:00 PM EST, Tablet, Partial fill upon patient request if the prescription is for a schedule II opioid drug. Start Date: 09/11/24 Status: Ordered Quantity: 30.0 Unit: tablet Repeat number: 1 Metoprolol Succinate ER 50 mg oral tablet, extended release 50 mg, 1, tablet, By Mouth, Daily, # 30 tablet, Refills 0, Maintenance, 09/11/24 1:18:00 PM EST, Partial fill upon patient request if the prescription is for a schedule II opioid drug. Start Date: 09/11/24 Status: Ordered Quantity: 30.0 Unit: tablet Repeat number: 1 Problem List Condition Confirmation Course Effective Dates Status Health St atus Informant GERD (gastroesophageal reflux disease) Confirmed Active Obese class I Confirmed Active Patient Care team information Care Team Personnel Name: Harry Keane MD, Esther Ocampo Position: [facility] Outreach Member Role: PCP Address: [address] [place] [address] Telecom: Care Team Related Persons Name: WAYNE RICKS Insurance Providers Guarantor name: WILLIE Health Plan Information #: 1 Payer: [email or web address] Member Number: NA Policy Number: NA Group Number: [id number]
--- OUTSIDE RECORDS SUMMARY | 2024-09-27 16:47 | XMS_ITS | Data Portability ---
Author Organization [place] - [facility] Address [address] [place] [address] Assessment No assessment recorded. Plan of Treatment Reminders Order Date Submit Date Provider Last Modified By Organization Details Last Modified Time Details Appointments None record ed. Lab None record ed. Referral None record ed. Procedures None record ed. Surgeries None record ed. Imaging None record ed. Medication Orders None record ed. Patient TargetsNo targets recorded. Patient InstructionsNo instructions recorded. Reason for Referral None Reported. Results Created Date Observation Date Name Description Value Unit Range Abnormal Flag Note LastModifiedBy Organization Detail LastModifiedTime 03/21/20 24 03/20/2024 CT, sinus es, w/o contr ast No observ ation record ed. [facility] [place] [address], [place], [address], 03/22/2024 13:36:47 Result Notes None recorded. Problems Name Problem SNOMED Code Status Onset Date Resolution Date Notes Provider Name and Address Organization Details Recorded Time Polyp of nasal cavity 074089295 Active 2023 TRICIA HARVEY MD [address], [place], [address] , [place] - [facility] 4 15:32:25 Chronic hoarsenes s 88999721076 05 Active 2023 TRICIA HARVEY MD [address], [place], [address] , [place] - [facility] 09:01:55 Dysphonia 92868352 Active 2023 Hoarsenes s; Note: Date Diagnosed : 01/19/2024 2:29 PM (R49.0) Not Available [facility] 4 03:19:00 Gastroeso phageal reflux disease without esophagit is 780713543 Active 2023 Gastro-es ophageal reflux disease without esophagit is; Note: Date Diagnosed : 01/19/2024 2:29 PM (K21.9) Not Available [facility] 4 03:19:00 Allergic rhinitis 47258220 Active 2023 Allergic rhinitis: Due to other allergen; Note: Date Diagnosed : 02/07/2024 11:06 AM (477.8) Not Available [facility] 03:19:00 Problem Notes None recorded. Procedures Surgical History None recorded. Imaging Results Imaging Date Name Status [facility] Details LastModified Time 03/20/2024 CT, sinuses, w/o contrast completed [place] [facility] [place] [address] [facility] [address], [place], [address], 03/22/2024 13:36:47 Procedure Notes None recorded. Medical Equipment None Reported. Allergies No known drug allergies Medications Name Sig Start Date Stop Date Status Note LastModified by Organization Details LastModified Time metoprolo l succinate ER 50 mg tablet,ex tended release 24 hr active Medicati on ID: [id number] B rand Name: metoprol ol succinat e Send Method: E-Prescr ibed Sub s Allowed: subs OK Speci al Instruct ion: TAKE 1 TABLET BY MOUTH EVERY DAY IN THE MORNING, DO NOT BREAK, CRUSH, DISSOLVE OR CHEW Med icationG enericNa me: metoprol ol succinat e Not Available Not Available Not Available famotidin e 40 mg tablet active Medicati on ID: [id number] B rand Name: famotidi ne Send Method: E-Prescr ibed Sub s Allowed: subs OK Speci al Instruct ion: TOME JONO TABLETA POR V A ORAL EN LA NOCHE Me dication GenericN kathryn: famotidi ne Not Available Not Available Not Available amlodipin e 5 mg tablet active Medicati on ID: [id number] B rand Name: amlodipi ne Send Method: E-Prescr ibed Sub s Allowed: subs OK Speci al Instruct ion: TAKE 1 TABLET BY MOUTH TWICE DAILY Me dication GenericN kathryn: amlodipi ne Not Available Not Available Not Available acetamino phen 500 mg tablet active Medicati on ID: [id number] B rand Name: acetamin ophen Se nd Method: E-Prescr ibed Sub s Allowed: subs OK Speci al Instruct ion: TAKE 2 TABLETS BY MOUTH EVERY 6 HOURS IF NEEDED FOR MODERATE PAIN OR FEVER *NEED INS Medi cationGe nericNam e: acetamin ophen Not Available Not Available Not Available losartan 100 mg-hydroc hlorothia zide 25 mg tablet active Medicati on ID: [id number] B rand Name: losartan -hydroch lorothia zide Sen d Method: E-Prescr ibed Sub s Allowed: subs OK Speci al Instruct ion: TAKE 1 TABLET BY MOUTH EVERY DAY IN THE MORNING Medicati onGeneri cName: losartan -hydroch lorothia zide Not Available Not Available Not Available famotidin e 20 mg tablet TOME 1 TABLETA POR V A ORAL DOS VECES AL D A active Not Available Not Available No t Available oseltamiv ir 75 mg capsule TAKE 1 CAPSULE BY MOUTH TWICE DAILY FOR 5 DAYS 03/10 completed Not Available Not Available Not Available ibuprofen 400 mg tablet TAKE 1 TABLET BY MOUTH EVERY 6 HOURS NEEDED FOR PAIN OR FEVER active Not Available Not Available No t Available ondansetr on 4 mg disintegr ating tablet DISSOLVE 1 TABLET BY MOUTH EVERY DAY NEEDED FOR NAUSEA AND VOMITING FOR 5 DAYS active Not Available Not Available No t Available doxycycli ne hyclate 100 mg tablet TAKE 1 TAB 2 TIMES DAILY X7 DAYS,PAOLO E WITH FULL GLASS WATER & DO NOT LIE DOWN FOR 30 MINUTES AFTER. 03/10 completed Not Available Not Available Not Available Vitals Date Recorded Body height Body weight Provider Name and Address Organization Details Last Updated DateTime 03/10/2024 177.8 cm 28391.32 g Jenifer Fallon [place] - [facility] 03/10/2024 08:47:38 Social History None recorded. Functional Status None recorded. Mental Status None recorded. Family History Nothing Reported. Medical History Condition Response GERD/Reflux Y Hypertension Y Past Encounters Encounter ID Performer Location Encounter Start Date Encounter Closed Date Diagnosis/Indication Diagnosis SNOMED-CT Code Diagnosis ICD10 Code [id number] TRICIA HARVEY MD [facility] [address] [place] [address] 03/10/2024 08:29:32 03/10/2024 09:05:57 Polyp of nasal cavity 631900714 J33.0 Chronic hoarseness 46394 28516 105 R49.0 Health Concerns Section Related Observation LastModified by Organization Detai ls LastModified Time None Recorded Concern Status LastModified by Organization Details LastModified Time None Recorded Advance Directives Directive None Recorded Payers Encounter Date Sequence Insurance Name Policy Number Policy Orozco Covered Member ID Orozco Member ID Guarantor Name 03/10/2024 1 MEDICAID[place]: [facility] Gregory Huston [id number] Gregory Huston Notes Date Note Type Note Provider Name and Address Organization Details Recorded Time 03/10/2024 text/html nasal polypRAST testing performed. Did not do well with PFTsHas not made appt for speech therapy yet. CT pendingprior visit 33-year-old male presents for evaluation of hoarseness. Fiberoptic laryngoscopy demonstrated right-sided nasal polyp and edema of the true cords bilaterally. No mass or lesion was noted. 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 We discussed referral to voice therapy which patient would like to proceed with. Also recommended CT sinus and allergy testing for further evaluation of nasal polyp. He will follow-up to discuss the results.Patient with acid reflux despite PPI therapy and Tums. We discussed [facility] [employer] which is available on [employer]. Patient has been referred to GI and will follow-up for further management of GERD. TRICIA VILLA MD [address] [address], [place], [address], [facility] - [facility] 03/10/2024 09:03:54
[2024-09-27 17:11] VITALS: BP 163/96; PULSE 99; RESP 18; TEMP 36.8; O2SAT 99; BMI 34.3
--- NOTE | 2024-09-27 17:11 | ED.GENADULT ---
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 Conley HPI narrative: 34-year-old male with history of hypertension controlled with metoprolol, losartan, and amlodipine, patient been having left-sided headache migraine patients suffer from migraine, pain is mostly to his left side of head, no photophobia, no nausea, no vomiting, no neck stiffness, no blurry vision, no weakness, no numbness. Related Data Home Medications ?Medication ?Instructions ?Recorded ?Confirmed amlodipine 5 mg tablet 5 mg PO Q12H 11/12/23 03/10/24 famotidine 40 mg tablet 40 mg PO QPM 11/12/23 03/10/24 losartan 100 1 tab PO QAM 11/12/23 03/10/24 mg-hydrochlorothiazide 25 mg tablet metoprolol succinate 50 mg 50 mg PO QAM 11/12/23 03/10/24 tablet,extended release 24 hr Previous Rx's ?Medication ?Instructions ?Recorded lisinopril 20 1 tab PO DAILY #30 tabs 07/22/20 mg-hydrochlorothiazide 12.5 mg tablet ondansetron 4 mg disintegrating 4 mg PO DAILY PRN nausea and 08/17/23 tablet vomiting 5 days #14 tabs Allergies Allergy/AdvReac Type Severity Reaction Status Date / Time No Known Allergies Allergy Verified 09/27/24 17:15 [No Known Allergies*] Review of Systems Review of Systems: All other systems are reviewed and are negative Constitutional: Reports as per HPI and Reports no additional constitutional complaints Eyes: Reports as per HPI and Reports no additional eye complaints Reports system reviewed and no additional complaints, except as documented Cardiovascular: Reports as per HPI and Reports no additional cardiovascular complaints Respiratory: Reports as per HPI and Reports no additional respiratory complaints Gastrointestinal: Reports as per HPI and Reports no additional gastrointestinal complaints Genitourinary: Reports no additional female genitourinary complaints Musculoskeletal: Reports no additional musculoskeletal complaints Skin/Breast: Reports system reviewed and no additional complaints, except as docu Psychiatric: Reports no additional psychiatric complaints Endocrine: Reports no additional endocrine complaints Hematologic/Lymphatic: Reports no additional hematologic/lymphatic complaints Allergic/Immunologic: Reports no additional allergic/immunologic complaints Reports system reviewed and no additional complaints, except as documented and Reports Abnormal speech present [facility] Family History Family History Father Diabetes High blood cholesterol Sleep apnea Mother Thyroid disease Diabetes High blood cholesterol Sister Asthma Social History Social History Alcohol intake: former Patient Tobacco Use Status: Never used Tobacco Advance Directives: No Advance Directives Information Provided: Yes Do you have a plan to hurt others: No Plan Physical Exam ED Vital Signs: Vital Signs - 24 hr 09/27/24 17:11 09/27/24 20:29 Temperature 98.2 F 98.0 F Pulse Rate 99 89 Respiratory Rate 18 18 Blood Pressure 163/96 H 148/84 H Pulse Oximetry 99 100 Oxygen Delivery Method Room Air Room Air BMI result Body Mass Index 34.3 Vital signs have been reviewed and appear to be correct. Blood pressure elevated. Heart rate normal. Respiratory rate normal. Temperature normal. Oxygen saturation normal. Appearance: Alert. Oriented X3. No acute distress. Head: Normal external exam. Normocephalic. Atraumatic. No Lindsey signs noted. No raccoon eyes noted Eyes: PERRLA. EOMI. Conjunctiva and sclera normal. Eyelids normal. ENT: TM's Normal. Pharynx normal. Uvula midline. Moist mucous membranes. No trismus noted. No drooling noted. No muffled voice noted. Neck: Normal inspection. Neck supple. FROM. No adenopathy. Thyroid Normal. No meningeal signs. No neck mass noted. CVS: Normal heart rate and rhythm. Heart sound normal. No murmurs noted. Pulses normal throughout. Respiratory: No respiratory distress. Painless inspiration. Breath sounds normal. No wheezes/rales/rhonchi noted. Chest nontender. No accessory muscle usage noted or decreased air movement noted. Abdomen: Soft and nontender. Bowel sounds normal in all 4 quadrants. No distention noted. No organomegaly noted. No visible injury noted. Back: No CVA tenderness. Full range of motion noted. Skin: Skin warm and dry. Normal skin color. Normal skin turgor. No rashes/lesions/lacerations noted. Extremities: No lower extremity edema. Extremities exhibit normal range of motion. Extremities nontender. Neuro: Mental status: Normal attention, orientation, memory, and affect. Cranial nerves: Pupils are equal, round and reactive to light, EOMI, visual portillo are fall, face is symmetric, facial sensations are normal. Motor examination normal muscle tone, strength to 4 extremities. DTR are +2, planter's are flexor. Sensory exam; normal coordination, no ataxia, gait stable. Cerebellar exam: Zeovau-kb-munx and mhbt-pn-rzco is normal. Extrapyramidal system: No tremors, no rigidity with normal facial expressions. Pronator drift not present Course Course Course Narrative: RME, this is a rapid medical exam performed by Jeremiah Sidhu please refer to primary provider for complete H&P- 34-year-old male presents for evaluation of a headache. He does have a history of migraines. He also endorses congestion. Plan for viral swabs. We will treat his headache with ibuprofen Reevaluation(s) Reevaluation #1: Migraine headache patient feels better, normal neuro exam, CT of the head is unremarkable, improvement of patient's symptoms. Time: 23:52 Medications Administered Discontinued Medications Generic Name Dose Route Start Last Admin Trade Name Freq PRN Reason Stop Dose Admin Ibuprofen 600 mg 09/27/24 17:14 09/27/24 17:16 Ibuprofen 600 Mg Tablet PO 09/27/24 17:15 600 mg ONCE ONE Administration Ketorolac Tromethamine 30 mg 09/27/24 21:36 09/27/24 21:50 Ketorolac Tromethamine 30 Mg/Ml Vial IM 09/27/24 21:37 30 mg ONCE ONE Administration Medical Decision Making Differential Diagnosis Differential Diagnoses: The differential diagnosis associated with the presentation includes (Intracranial bleed, CVA, migraine, tension headache, temporal arteritis.) Admission/Observation Consideration of admission/observation: Escalation of care including admission/observation considered Lab Data MDM Lab Attestation statement: I reviewed the patient's lab results. 09/27/24 21:55 09/27/24 21:55 Labs: Lab Results 09/27/24 09/27/24 Range/Units 18:37 21:55 WBC 8.8 (4.8-10.8) X10*3/uL RBC 4.95 (4.60-5.80) X10*6/uL Hgb 14.5 (14.0-18.0) g/dl Hct 40.6 L (42.0-52.0) % MCV 82.0 (80.0-98.0) fL MCH 29.3 (27.0-33.0) pg MCHC 35.7 (31.0-36.0) g/dl RDW 13.1 (11.0-16.0) % Plt Count 265 (160-400) X10*3/uL MPV 9.9 (9.4-12.4) fL Immature Gran % (Auto) 0.3 (0.0-0.4) % Neut % (Auto) 78.3 H (45-73) % Lymph % (Auto) 15.6 L (20-40) % Glynn % (Auto) 3.9 (2-11) % Eos % (Auto) 1.4 (0-4) % Baso % (Auto) 0.5 (0-2) % Lymph # (Auto) 1.4 (1.2-4.9) X10*3/uL Glynn # (Auto) 0.3 (0.1-1.2) X10*3/uL Eos # (Auto) 0.1 (0.0-0.4) X10*3/uL Baso # (Auto) 0.0 (0.0-0.2) X10*3/uL Abs Immat Gran (auto) 0.03 (0.00-0.03) X10*3/uL Absolute Neuts (auto) 6.9 (2.0-8.3) x10*3/uL Absolute Nucleated RBC 0.000 (0.0-0.012) X10*3/uL Nucleated RBC % (auto) 0.0 (0.0-0.2) /100WBC ESR 2 (0-15) MM/HR Sodium 136 (135-145) mmol/L Potassium 3.6 (3.3-5.1) mmol/L Chloride 102 (96-108) mmol/L Carbon Dioxide 24 (22-29) mmol/L Anion Gap 14 (12-20) BUN 13 (9-16) mg/dL Creatinine 0.76 (0.5-1.4) mg/dL Estim Creat Clear Calc 172.1 Estimated GFR > 60 Random Glucose 119 H (60-115) mg/dL Calcium 9.1 D (8.4-10.2) mg/dL C-Reactive Protein 0.15 (< or = 0.50) mg/dL Influenza Type A (PCR) NEGATIVE (Negative) Influenza Type B (PCR) NEGATIVE (Negative) RSV RNA Qual (PCR) NEGATIVE (Negative) SARS-CoV-2 RNA (RT-PCR) NEGATIVE (Negative) Independent Interpretation I performed an independent interpretation of an: CT Scan (Head CT: No acute intracranial pathology.) Radiology Impression Discussion of test interpretation with radiology: I have reviewed the radiologist's reading. Discharge Plan Discharge Clinical Impression: Headache Patient Disposition: Home, Self-Care Instructions: Acute Headache (ED) Prescriptions: No Action lisinopril-hydrochlorothiazide 20-12.5 mg tablet 1 tab PO DAILY Qty: 30 2RF ondansetron 4 mg tablet,disintegrating 4 mg PO DAILY PRN (Reason: nausea and vomiting) 5 Days Qty: 14 0RF losartan-hydrochlorothiazide 100-25 mg tablet 1 tab PO QAM metoprolol succinate 50 mg tablet extended release 24 hr 50 mg PO QAM amlodipine 5 mg tablet 5 mg PO Q12H famotidine 40 mg tablet 40 mg PO QPM Referrals: Esther Hoang MD [Primary Care Provider] - Print Language: Hebrew
[2024-09-27] MEDS: Ibuprofen 600 MG TABLET PO (17:16)
[2024-09-27 19:18] LABS: Influenza A PCR NEGATIVE (Negative); Influenza B PCR NEGATIVE (Negative); Resp Syncy Virus RNA Qual PCR NEGATIVE (Negative); SARS COV2 PCR INHOUSE NEGATIVE (Negative)
[2024-09-27 20:29] VITALS: BP 148/84; PULSE 89; RESP 18; TEMP 36.7; O2SAT 100
[2024-09-27] MEDS: Ketorolac Tromethamine 30 MG/ML VIAL IM (21:50)
[2024-09-27 22:12] LABS: MANUAL DIFF FLAG NO
[2024-09-27 22:15] LABS: Basophils Percent Auto 0.5 % (0-2); Eosinophils Absolute Auto 0.1 X10*3/uL (0.0-0.4); Eosinophils Percent Auto 1.4 % (0-4); Hematocrit 40.6 % (42.0-52.0); Hemoglobin 14.5 g/dl (14.0-18.0); Imm Gran Abs Auto 0.03 X10*3/uL (0.00-0.03); Imm Gran Pct Auto 0.3 % (0.0-0.4); Lymphocytes Absolute Auto 1.4 X10*3/uL (1.2-4.9); Lymphocytes Percent Auto 15.6 % (20-40); Mean Corpuscular HGB Conc 35.7 g/dl (31.0-36.0); Mean Corpuscular Hemoglobin 29.3 pg (27.0-33.0); Mean Platelet Volume 9.9 fL (9.4-12.4); Monocytes Absolute Auto 0.3 X10*3/uL (0.1-1.2); Monocytes Percent Auto 3.9 % (2-11); Neutrophils Absolute Auto 6.9 x10*3/uL (2.0-8.3); Neutrophils Percent Auto 78.3 % (45-73); Platelet Count 265 X10*3/uL (160-400); Red Blood Count 4.95 X10*6/uL (4.60-5.80); Red Cell Distribution Width 13.1 % (11.0-16.0); White Blood Count 8.8 X10*3/uL (4.8-10.8)
[2024-09-27 22:47] LABS: Anion Gap 14 (12-20); Blood Urea Nitrogen 13 mg/dL (9-16); C Reactive Protein 0.15 mg/dL (< or = 0.50); Calcium 9.1 mg/dL (8.4-10.2); Carbon Dioxide 24 mmol/L (22-29); Chloride 102 mmol/L (96-108); Creatinine Clr Calc Pharmacy 172.1; Estimated Glomerular Filt Rate > 60; Glucose Random 119 mg/dL (60-115); Potassium 3.6 mmol/L (3.3-5.1); Sodium 136 mmol/L (135-145)
[2024-09-27 22:49] LABS: Erythrocyte Sedimentation Rate 2 MM/HR (0-15)
[2024-09-28 00:21] VITALS: BP 148/84; PULSE 89; RESP 18; TEMP 36.7; O2SAT 100
== END 2024-09-28 00:22 | disposition home or self-care (01) ==
PROVIDERS: Physician Assistant; Emergency Provider Emergency Medicine; PCP Student in an Organized Health Care Education/Training Program
DX: R51.9 Headache, unspecified (principal); Z03.818 Encounter for observation for suspected exposure to other biological agents ruled out; I10 Essential (primary) hypertension; Z79.899 Other long term (current) drug therapy
CPT/HCPCS: 0241U; 36415; 70450; 80048; 85025; 85652; 86140; 96372; 99283; 99284; J1885

== ENCOUNTER → 2024-09-27 21:25 | Outpatient (BNV) | payer MEDICAID, SELFPAY | PROVIDERS: Emergency Provider Emergency Medicine; PCP Student in an Organized Health Care Education/Training Program; Visit Provider Radiology Diagnostic Radiology | DX: J32.0 Chronic maxillary sinusitis (principal) | CPT/HCPCS: 70450 ==

== ENCOUNTER 2024-10-06 15:28 | Outpatient (AMB) | payer MEDICAID, SELFPAY ==
--- NOTE | 2024-10-06 15:28 | A.OFFVIS_ITS ---
Vital Signs 10/06/24 15:32 Height 5 ft 10 in Weight 241 lb BMI 34.6 Intake Visit Reasons: 6 month f/u Intake Note: Patient presents for 6 month follow up. Allergies No Known Allergies [No Known Allergies*] Allergy (Verified 10/06/24 15:33) Medication List - Last Reconciled 10/06/24 by BRY Esparza amlodipine 5 mg PO Q12H famotidine 40 mg PO QPM lisinopril-hydrochlorothiazide 20-12.5 mg 1 tab PO DAILY losartan-hydrochlorothiazide 100-25 mg 1 tab PO QAM metoprolol succinate ER 100 mg PO QAM ondansetron 4 mg PO DAILY PRN 5 days HPI Comments Details: 34-yr-old male presents for follow-up visit for sleep apnea. Patient denies interval medical history changes, other than a recent [facility] ER evaluation for headache/migraine. 12/29/2024, HST: mild sleep apnea w/ AHI 9.4/hr and O2 kacy 80%. SpO2 < 90% x's 20 min, < 88% x's 5 min. Pt states he does try to use the CPAP machine, however he does not tolerated well. The machine does cause oral dryness. Follow-up ENT consult in December. [facility] Surgical History (Updated 10/06/24 @ 15:33 by IVAN Becker) H/O endoscopy Family History Father Diabetes High blood cholesterol Sleep apnea Mother Thyroid disease Diabetes High blood cholesterol Sister Asthma Social History Alcohol intake: former Patient Tobacco Use Status: Never used Tobacco Physical Exam Vital Signs: BMI result Body Mass Index 34.6 Const General: no acute distress Orientation/consciousness: patient oriented x3 HEENT Other: Hoarse voice Mallampati stage IV Neuro General: patient oriented x3 Psych Mental Status: mental status grossly normal Speech and movement: Clear speech present Attitude: cooperative Assessment & Plan Assessment & Plan (1) Mild obstructive sleep apnea: Code(s): G47.33 - Obstructive sleep apnea (adult) (pediatric) Category: Medical (2) Obesity (BMI 30.0-34.9): Code(s): E66.811 - Obesity, class 1 Category: Medical Plan Reviewed HST results- mild MICHAEL w/ mild degree of pulse oximtery. Try to increase APAP use 5-40xfF1D nightly > 4 hrs, as he does have concomitant HTN. To minimize oral dryness, try OTC XyliMelts and adjusting/increasing CPAP humidification level. Follow up with ENT as scheduled Weight management is often ineffective strategies for reducing severity of sleep apnea, thus we will refer patient to [facility] weight management clinic. Pt advised to call us w/ any questions or concerns. f/u in 6 months or sooner prn. Orders: Referrals Medical Weight Management Referral E66.811 - Obesity, class 1, G47.33 - Obstructive sleep apnea (adult) (pediatric), I10 - Essential (primary) hypertension Coding Level of Care Code Est Pt Level 3 (61844) Diagnoses Mild obstructive sleep apnea G47.33 Obesity (BMI 30.0-34.9) E66.811
--- OUTSIDE RECORDS SUMMARY | 2024-10-06 15:30 | XMS_ITS | Data Portability ---
Author Organization [place] - [facility], Allergy Address [address] [place] [address] Assessment No assessment recorded. Plan of Treatment Reminders Order Date Submit Date Provider Last Modified By Organization Details Last Modified Time Details Appointments Establish ed 30 2024 11:00A M TRICIA RECINOS MD Not available Not available Not available Lab None recorded. Referral None recorded. Procedures None recorded. Surgeries None recorded. Imaging None recorded. Medication Orders None recorded. Patient TargetsNo targets recorded. Patient InstructionsNo instructions recorded. Reason for Referral None Reported. Results Created Date Observation Date Name Description Value Unit Range Abnormal Flag Note LastModifiedBy Organization Detail LastModifiedTime 03/21/20 24 03/20/2024 CT, sinus es, w/o contr ast No observ ation record ed. [facility] [place] [address], [place], [address], 03/22/2024 13:36:47 Result Notes None recorded. 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 Active 2023 TRICIA HARVEY MD [address],[facility] [address], [place], [address] , [place] - [facility] 15:32:25 Chronic hoarsenes s 73524099235 05 Active 2023 TRICIA HARVEY MD [address],[facility] [address], [place], [address] , [place] - [facility] 4 09:01:55 Dysphonia 75312529 Active 2023 Hoarsenes s; Note: Date Diagnosed : 01/19/2024 2:29 PM (R49.0) Not Available [facility] 4 03:19:00 Gastroeso phageal reflux disease without esophagit is 357264487 Active 2023 Gastro-es ophageal reflux disease without esophagit is; Note: Date Diagnosed : 01/19/2024 2:29 PM (K21.9) Not Available [facility] 4 03:19:00 Allergic rhinitis 45894214 Active 2023 Allergic rhinitis: Due to other allergen; Note: Date Diagnosed : 02/07/2024 11:06 AM (477.8) Not Available [facility] 4 03:19:00 Problem Notes None recorded. Procedures Surgical History None recorded. Imaging Results Imaging Date Name Status [facility] LastModified Time 03/20/2024 CT, sinuses, w/o contrast completed [facility] [place] [address], [place], [address], 03/22/2024 13:36:47 Procedure Notes None recorded. Medical Equipment None Reported. Allergies No known drug allergies Medications Name Sig Start Date Stop Date Status Note LastModified by Organization Details LastModified Time metoprolo l succinate ER 50 mg tablet,ex tended release 24 hr active Medicati on ID: [id number] B rand Name: metoprol ol succinat e Send Method: E-Prescr ibed Sub s Allowed: subs OK Speci al Instruct ion: TAKE 1 TABLET BY MOUTH EVERY DAY IN THE MORNING, DO NOT BREAK, CRUSH, DISSOLVE OR CHEW Med icationG enericNa me: metoprol ol succinat e Not Available Not Available Not Available famotidin e 40 mg tablet active Medicati on ID: [id number] B rand Name: famotidi ne Send Method: E-Prescr ibed Sub s Allowed: subs OK Speci al Instruct ion: TOME JONO TABLETA POR V A ORAL EN LA NOCHE Me dication GenericN kathryn: famotidi ne Not Available Not Available Not Available amlodipin e 5 mg tablet active Medicati on ID: [id number] B rand Name: amlodipi ne Send Method: E-Prescr ibed Sub s Allowed: subs OK Speci al Instruct ion: TAKE 1 TABLET BY MOUTH TWICE DAILY Me dication GenericN kathryn: amlodipi ne Not Available Not Available Not Available acetamino phen 500 mg tablet active Medicati on ID: [id number] B rand Name: acetamin ophen Se nd Method: E-Prescr ibed Sub s Allowed: subs OK Speci al Instruct ion: TAKE 2 TABLETS BY MOUTH EVERY 6 HOURS IF NEEDED FOR MODERATE PAIN OR FEVER *NEED INS Medi cationGe nericNam e: acetamin ophen Not Available Not Available Not Available losartan 100 mg-hydroc hlorothia zide 25 mg tablet active Medicati on ID: [id number] B rand Name: losartan -hydroch lorothia zide [...] Details Last Updated DateTime 03/10/2024 177.8 cm 02819.32 g Jenifer Fallon [place] - [facility] 03/10/2024 08:47:38 Social History None recorded. Functional Status None recorded. Mental Status None recorded. Family History Nothing Reported. Medical History Condition Response Hypertension Y GERD/Reflux Y Past Encounters Encounter ID Performer Location Encounter Start Date Encounter Closed Date Diagnosis/Indication Diagnosis SNOMED-CT Code Diagnosis ICD10 Code Diagnosis Note [id number] TRICIA HARVEY MD [facility] [address] [place] [address] 03/10/2024 08:29:32 03/10/2024 09:05:57 Polyp of nasal cavity 384948419 J33.[address] Allergy minimal CT end of the month. Brochure given re sinus surgery Chronic hoarseness 04134 22461 105 R49.0 waiting for speech therapy. Working with PCP on GERD management Health Concerns Section Related Observation LastModified by Organization Detai ls LastModified Time None Recorded Concern Status LastModified by Organization Details LastModified Time None Recorded Advance Directives Directive None Recorded Payers Encounter Date Sequence Insurance Name Policy Number Policy Orozco Covered Member ID Orozco Member ID Guarantor Name 03/10/2024 1 MEDICAID-[place]: [facility] Gregory Huston [id number] Gregory Petty Huston Notes Date Note Type Note Provider [...] discussed Reflux [employer] which is available on [employer]. Patient has been referred to GI and will follow-up for further management of GERD. TRICIA VILLA MD [address] [address], [place], [address], [facility] - [facility] 03/10/2024 09:03:54
[2024-10-06 15:32] VITALS: BMI 34.6
== END 2024-10-06 16:08 | disposition home or self-care (01) ==
PROVIDERS: PCP Physician Assistant; Visit Provider Nurse Practitioner Family
DX: G47.33 Obstructive sleep apnea (adult) (pediatric) (principal); E66.811 Obesity, class 1
CPT/HCPCS: 99213

== ENCOUNTER → 2024-10-06 15:28 | Outpatient (BNVA) | payer MEDICAID, SELFPAY | PROVIDERS: PCP Physician Assistant; Visit Provider Nurse Practitioner Family | DX: G47.33 Obstructive sleep apnea (adult) (pediatric) (principal); E66.811 Obesity, class 1; Z68.34 Body mass index [BMI] 34.0-34.9, adult | CPT/HCPCS: 99212 ==

== ENCOUNTER 2025-02-05 09:51 | Emergency (ER) | payer MEDICAID, SELFPAY ==
[2025-02-05 10:33] VITALS: BP 154/84; PULSE 64; RESP 18; TEMP 37.1; O2SAT 100; BMI 35.6
[2025-02-05 11:34] VITALS: BP 150/85; PULSE 76; RESP 16; TEMP 36.7; O2SAT 97
--- NOTE | 2025-02-05 11:38 | ED_ITS ---
HPI - Ear Problem General Chief complaint: Ear Problems Stated complaint: Abscess Behind L Ear Time Seen by Provider: 02/05/25 11:35 Source: patient Mode of arrival: ambulatory Limitations: no limitations History of Present Illness ED Provider: Marilyn Silva PA-C HPI Narrative: 34-year-old male presents to the ER for evaluation of a painful, swollen, lump behind his left ear for the last 3 days. He reports it is 10/10 in severity when he touches the area. He states he had similar abscess behind the same ear about 10 years ago, took a little while to resolve after getting it drained but it did end up healing normally. He denies any pain within the ear, hearing loss or drainage. There is no drainage from the abscess. Denies any fever or chills. MD Complaint: other ( Abscess behind the left ear) Location: left ear Duration: intermittent Severity: moderate Exacerbating factors: palpation Discharge from ear: no Treatment prior to arrival: none Related Data Home Medications ?Medication ?Instructions ?Recorded ?Confirmed amlodipine 5 mg tablet 5 mg PO Q12H 11/12/23 10/06/24 famotidine 40 mg tablet 40 mg PO QPM 11/12/23 10/06/24 losartan 100 1 tab PO QAM 11/12/23 10/06/24 mg-hydrochlorothiazide 25 mg tablet metoprolol succinate 50 mg 100 mg PO QAM 10/06/24 10/06/24 tablet,extended release 24 hr Previous Rx's ?Medication ?Instructions ?Recorded lisinopril 20 1 tab PO DAILY #30 tabs 07/22/20 mg-hydrochlorothiazide 12.5 mg tablet ondansetron 4 mg disintegrating 4 mg PO DAILY PRN nausea and 08/17/23 tablet vomiting 5 days #14 tabs Allergies Allergy/AdvReac Type Severity Reaction Status Date / Time No Known Allergies Allergy Verified 02/05/25 10:35 [No Known Allergies*] Review of Systems Review of Systems: Yes all other systems are reviewed and are negative [facility] Past Medical History Surgical History (Updated 10/06/24 @ 15:33 by IVAN Becker) H/O endoscopy Family History Family History Father Diabetes High blood cholesterol Sleep apnea Mother Thyroid disease Diabetes High blood cholesterol Sister Asthma Social History Social History Alcohol intake: former Patient Tobacco Use Status: Never used Tobacco Smoked in Last 30 Days: No Advance Directives: No Advance Directives Information Provided: Yes Do you have a plan to hurt others: No Plan Physical Exam Vital Signs: Vital Signs: Last Vital Signs Temp 98.1 F 02/05/25 12:13 Pulse 76 02/05/25 12:13 Resp 16 02/05/25 12:13 BP 150/85 H 02/05/25 12:13 Pulse Ox 97 02/05/25 12:13 O2 Del Method Room Air 02/05/25 12:13 BMI result Body Mass Index 35.6 Appearance: Alert. Oriented X3. No acute distress. HEENT: normal external inspection. the posterior aspect of the left ear has a 1 cm, round, fluctuant. no mastoid tenderness or redness. normal TMs bilaterally. CVS: Normal heart rate and rhythm. Pulses normal. Respiratory: No respiratory distress. Skin: Skin warm and dry. Normal skin color. Normal skin turgor. No rashes. Extremities: normal inspection x4, no joint swelling Neuro: Oriented X 3. grossly normal, nonfocal Procedures Abscess I/D Site: other (postauricular area) Side (if applicable): left Technique: needle aspiration Sent for culture/gram staining?: No Irrigation: Yes Packing used?: none Medical Decision Making Medical Decision Making MDM Narrative: 34-year-old male presenting to the ER for evaluation of a small, painful abscess behind his left ear that has been present for the last couple of days. No surrounding erythema to suggest cellulitis. No mastoid tenderness or redness. Area was very fluctuant and amenable to 18 gauge needle drainage with expression of small amount of purulent material. Patient tolerated well. Wound care discussed, using engineer technical staff. All questions were answered. Stable for discharge home. Differential Diagnosis Differential Diagnoses: The differential diagnosis associated with the presentation includes abscess, mastoiditis, cauliflower ear, Cellulitis External Record Review External record reviewed: Prior outpatient labs Prescription Management I considered prescription management with: Pain Medication and Antibiotic Critical Care Time Critical Care Time Critical Care Time: No Discharge Plan Discharge Clinical Impression: Abscess Patient Disposition: Home, Self-Care Instructions: Abscess Incision and Drainage (DC) Additional Instructions: use warm compresses on the area several times per day for the next 2-3 days take motrin and tylenol as needed for pain If you develop new or worsening symptoms call 911 or come back to the ER for further evaluation. Prescriptions: No Action lisinopril-hydrochlorothiazide 20-12.5 mg tablet 1 tab PO DAILY Qty: 30 2RF ondansetron 4 mg tablet,disintegrating 4 mg PO DAILY PRN (Reason: nausea and vomiting) 5 Days Qty: 14 0RF losartan-hydrochlorothiazide 100-25 mg tablet 1 tab PO QAM amlodipine 5 mg tablet 5 mg PO Q12H famotidine 40 mg tablet 40 mg PO QPM metoprolol succinate 50 mg tablet extended release 24 hr 100 mg PO QAM Stand Alone Forms: Work/School Release Interventions: ED Discharge Assessment Last Done: 02/05/25 12:13 Discharge Date/Time: 02/05/25 12:13 Print Language: Bengali
[2025-02-05 12:13] VITALS: BP 150/85; PULSE 76; RESP 16; TEMP 36.7; O2SAT 97
--- OUTSIDE RECORDS SUMMARY | 2025-02-05 12:27 | XMS_ITS | Clinical Summary ---
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 Triglyceride: greater than or equal to 5OO mg/dL Cholesterol 159 <200 mg/dL [facility] Comment:Desirable Cholestero l: less than 200 mg/dLBorderline High Cholesterol: 200-239 mg/dLHigh Cholesterol: greater than 239 mg/dL LDL Cholesterol Calculated 110(H) <100 mg/dL [facility] Comment:Desirable LDL: less than 100 mg/dLNear Optimal/Above Optimal LDL: 110- 129 mg/dLBorderline High LDL: 130-159 mg/dLHigh LDL: 160-189 mg/dLVery High LDL: greater than or equal to 190 mg/dL HDL Cholesterol 38(L) >40 mg/dL [facility] Comment:Desirable HDL: great er than 40 mg/dL Note: This HDL assay may give artificially low results in patients with liver disease. Blood Venous blood specimen / Unknown 08/31/2024 10:30 AM EST 08/31/2024 11:12 AM EST Esther Keane MD LAB BLOOD ORDERAB LES Final Result [facility] [address] [place] [phone] from Last 3 Months or Most Recently Relevant to Health Maintenance Insurance Care Teams Logistics Operations Director Relationship Specialty Start Date End Date Esther Hoang MD [address] [place] [address] PCP - General Internal Medicine 09/15/23
--- OUTSIDE RECORDS SUMMARY | 2025-02-05 12:27 | XMS_ITS | Encounter Summary ---
Author Organization [employer] Address [address] [facility] 7t [place] [address] Care Team Providers Care Retail Commission Sales Associate Name Role Phone Esther Hoang MD Primary Care Pro vider Reason for Visit * Reason Onset Date Comments New Patient 06/30/2023 Encounter Details Date Type Department Care Team (Late st Contact Info) Description 06/30/2023 Telephone [facility] [address] [place], [place] [phone] Dixon Ortiz MD [address] [place], [place] [phone] New Patient Social History Tobacco Use Types Packs/Day Years Used Date Smoking Tobacco: Never Assessed Sex and Gender Information Value Date Recorded Sex Assigned at Male 07/30/2023 9:44 AM EDT Legal Sex Male 3:03 PM EDT Gender Identity Male 07/30/2023 9:44 AM EDT Sexual Orientation Straight 07/30/2023 9: 44 AM EDT documented as of this encounter Miscellaneous Notes * Telephone Encounter - Cecille Neal - 07/21/2023 3:37 PM EDT PAR Cecille Alvarez called pt to Offer TECHNICAL ASSISTANCE CONSULTANT appt. Pt demographics and insurance information were verified. Pt states following medical conditions: HTN, Multiply health conditions that would like to discuss with pcp. Pt reports taking medications: Yes, does not have any medications, grant writer suggested walk in until day of appt. Pt given TECHNICAL ASSISTANCE CONSULTANT appt with Dr. Mcdonald on 09/15/2023 @ 9:15 am. Pt will be sent appt reminder card and medical release form and agrees to complete and to return to medical records prior to TECHNICAL ASSISTANCE CONSULTANT appt. * Telephone Encounter - Cecille Neal - 06/30/2023 3:10 PM EDT Pt has been transfer over to wait list for TECHNICAL ASSISTANCE CONSULTANT. EFFECTIVE SINCE 06/30/2023 documented in this encounter Plan of Treatment Upcoming Encounters Date Type Department Care Team (Late st Contact Info) Description 02/05/2025 1:40 PM EDT Office Visit [facility] [address] [place] [phone] 02/07/2025 2:00 PM EDT Office Visit [facility] [address] [place] [phone] Esther Hoang MD [address] [place] [phone] documented as of this encounter Visit Diagnoses Not on filedocumented in this encounter Care Teams Retail Commission Sales Associate Relationship Specialty Start Date End Date Esther Hoang MD [address] [place] [phone] PCP - General Internal Medicine 09/15/23 documented as of this encounter
--- OUTSIDE RECORDS SUMMARY | 2025-02-05 12:27 | XMS_ITS | Encounter Summary ---
Author Organization [employer] Address [address] [place] [address] 7 [place] [address] Care Team Providers Care Workers Compensation Consultant Name Role Phone Esther Hoang MD Primary Care Pro vider Reason for Visit * Reason Onset Date Comments Med Refill 10/21/2023 Encounter Details Date Type Department Care Team ([facility] st Contact Info) Description 10/21/2023 Telephone [facility] [address] [place], [place] [phone] Esther Hoang MD [address] [place], [place] [phone] Med Refill Social History Tobacco Use Types Packs/Day Years Used Date Smoking Tobacco: Never Passive Smoke Exposure: Never Smokeless Tobacco: Never Alcohol Use Standard Drinks/Week Comments Never 0 (1 standard drink = 0.6 oz pur e alcohol) Depression Answer Date Recorded Patient Health Questionnaire-9 Score 16 09/15/2023 Patient Health Questionnaire-9 Score 16 09/15/2023 Last PHQ-9: Questionnaire Data Not on file 1 11/16/2022 Housing Stability Answer Date Recorded What is your housing situation today? I do not have housing (Staying with others, in a hotel, in a correction, living outside on the street, on a [...] the past 12 months, has t he [employer], gas, oil or water company threatened to shut off services in your home? No 09/15/2023 Depression Answer Date Recorded Patient Health Questionnaire-2 Score 2 09/15/2023 Sex and Gender Information Value Date Recorded Sex Assigned at Male 07/30/2023 9:44 AM EDT Legal Sex Male 3:03 PM EDT Gender Identity Male 07/30/2023 9:44 AM EDT Sexual Orientation Straight 07/30/2023 9: 44 AM EDT documented as of this encounter Miscellaneous Notes * Telephone Encounter - Jerrica Ayala LPN - 10/21/2023 11:03 AM EST Medications pended to PCP. * Telephone Encounter - Rain Epperson - 10/21/2023 10:49 AM EST TC from pt requesting medication refill. Medications needing refill : acetaminophen (Tylenol) 500 MG tablet losartan-hydroCHLOROthiazide (Hyzaar) 100-25 MG tablet amLODIPine (Norvasc) 5 MG tablet metoprolol succinate XL (Toprol-XL) 50 MG 24 hr tablet famotidine (Pepcid) 40 MG tablet To be sent to: [facility] - [place], [place] - [address] [place] [address] documented in this encounter Plan of Treatment Upcoming Encounters Date Type Department Care Team ([facility] st Contact Info) Description 02/05/2025 1:40 PM EDT Office Visit [facility] [address] [place] [address] 02/07/2025 2:00 PM EDT Office Visit [facility] [address] [place] [phone] Esther Hoang MD [address] [place] [address] documented as of this encounter Visit Diagnoses Not on filedocumented in this encounter Additional Health Concerns Assessment Noted Time PHQ-9 Depression Total Score: 16 023 11:04 AM EST documented as of this encounter Care Teams Workers Compensation Consultant Relationship Specialty Start Date End Date Esther Hoang MD [address] [place] [address] PCP - General Internal Medicine 09/15/23 documented as of this encounter
--- OUTSIDE RECORDS SUMMARY | 2025-02-05 12:27 | XMS_ITS | Clinical Summary ---
Author Organization [employer] [facility] Address [address] [place] [address] Care Team Providers Care Proof Machine Operator Name Role Phone Unavailable Primary Care Provider Unavailabl e Social History Tobacco Use Types Packs/Day Years Used Date Smoking Tobacco: Never Assessed Sex and Gender Information Value Date Recorded Sex Assigned at Not on file Legal Sex Male 11:41 AM EDT Gender Identity Not on file Sexual Orientation Not on file Plan of Treatment Health Maintenance Due Date Last Done Comments DTaP,Tdap,and Td Vaccines (1 - Tdap) 2011 Hepatitis B Vaccines (1 of 3 - 19+ 3-dose series) 2011 COVID-19 Vaccine (2023-2 5 season) 2024 Cholesterol Screening (Lipid Panel) 07/05/2024 Depression Screening 07/05/2024 HIV Screening 07/05/2024 Hepatitis C Screening 07/05/2024 Social Influencers of Health Screening 07/05/2024 Hypertension/CHF/CAD Annual BMP Blood Test 07/22/2024 Influenza Vaccine (Season Ended) 2025 HIB Vaccines Aged Out No longer eligi [...] on patient's age to complete this topic MMR Vaccines Aged Out No longer eligi ble based on patient's age to complete this topic Meningococcal ACWY Vaccine Aged Out N o longer eligible based on patient's age to complete this topic Meningococcal B Vaccine Aged Out No l onger eligible based on patient's age to complete this topic Pneumococcal Vaccine: Pediat rics (0 to 5 Years) and At-Risk Patients (6 to 64 Years) Aged Out No longer eligible b ased on patient's age to complete this topic RSV Immunization Patients Un lisy 20 months Aged Out No longer eligible b ased on patient's age to complete this topic Varicella Vaccines Aged Out No longer eligible based on patient's age to complete this topic
--- OUTSIDE RECORDS SUMMARY | 2025-02-05 12:27 | XMS_ITS | Encounter Summary ---
Author Organization [employer] Address [address] [place] [address] 7 [place] [address] Care Team Providers Care Leather Drier Name Role Phone Esther Hoang MD Primary Care Pro vider Reason for Visit * Reason Onset Date Comments Med Refill 01/01/2025 Encounter Details Date Type Department Care Team (Late st Contact Info) Description 01/01/2025 Telephone [facility] [address] [place], [place] [phone] Esther Hoang MD [address] [place], [place] [phone] Med Refill Social History Tobacco Use Types [...] with others, in a hotel, in a snf, living outside on the street, on a [...] the past 12 months, has t he [employer], gas, oil or water company threatened to [...] Telephone Encounter - Jerrica Ayala LPN - 01/01/2025 12:06 PM EDT Medication needing refill pended to PCP. * Telephone Encounter - Rachel Franklin - 01/01/2025 11:39 AM EDT TC from pt requesting medication refill. Medications needing refill : metoprolol succinate XL (Toprol-XL) 100 MG 24 hr tablet . amLODIPine (Norvasc) 5 MG tablet losartan-hydroCHLOROthiazide (Hyzaar) 100-25 MG tablet To be sent to: [facility]/pharmacy #[id number] - [place], [place] - [address] [place] [address] documented in this encounter Plan of Treatment Upcoming Encounters Date Type Department Care Team (Late st Contact Info) Description 02/05/2025 1:40 PM EDT Office Visit [facility] [address] [place] [address] 02/07/2025 2:00 PM EDT Office Visit [facility] [address] [place] [phone] Esther Hoang MD [address] [place] [address] documented as of this encounter Visit Diagnoses Not on filedocumented in this encounter Additional Health Concerns Assessment Noted Time PHQ-9 Depression Total Score: 9 08/31/20 24 10:16 AM EST documented as of this encounter Care Teams Leather Drier Relationship Specialty Start Date End Date Esther Hoang MD [address] [place] [phone] PCP - General Internal Medicine 09/15/23 documented as of this encounter
--- OUTSIDE RECORDS SUMMARY | 2025-02-05 12:27 | XMS_ITS | Encounter Summary ---
Author Organization [employer] Address [address] [place] [address] 7 [place] [address] Care Team Providers Care Coater Operator Insulation Board Name Role Phone Esther oHang MD Primary Care Pro vider Reason for Visit * Reason Comments Med Refill Encounter Details Date Type Department Care Team ([facility] st Contact Info) Description 10/26/2024 Refill [facility] [address] [place] [address] [phone] Esther Hoang MD [address] [place], [place] [phone] Social History Tobacco Use Types Packs/Day Years [...] with others, in a hotel, in a intermediate, living outside on the street, on a [...] AM EDT documented as of this encounter Plan of Treatment Upcoming Encounters Date Type Department Care Team (Late st Contact Info) Description 02/05/2025 1:40 PM EDT Office Visit [facility] [address] [place] [phone] 02/07/2025 2:00 PM EDT Office Visit [facility] [address] [place] [phone] Esther Hoang MD [address] [place] [phone] documented as of this encounter Visit Diagnoses Not on filedocumented in this encounter Additional Health Concerns Assessment Noted Time PHQ-9 Depression Total Score: 9 08/31/20 24 10:16 AM EST documented as of this encounter Care Teams Coater Operator Insulation Board Relationship Specialty Start Date End Date Esther Hoang MD [address] [place] [phone] PCP - General Internal Medicine 09/15/23 documented as of this encounter
--- OUTSIDE RECORDS SUMMARY | 2025-02-05 12:27 | XMS_ITS | Encounter Summary ---
Author Organization [employer] Address [address] [place] [address] 7 [place] [address] Care Team Providers Care Trestle Builder Name Role Phone Esther Hoang MD Primary Care Pro vider Reason for Visit * Reason Comments Pre-visit Planning (Unable to reach for PVP screening, LVM) Encounter Details Date Type Department Care Team ([facility] st Contact Info) Description 01/31/2025 Patient Outreach [facility] [address] [place] [address] Esther Hoang MD [address] [place] [address] Pre-visit Planning ((Unable to reach for PVP screening, LVM)) Social History Tobacco Use Types Packs/Day Years [...] with others, in a hotel, in a prison, living outside on the street, on a [...] AM EDT documented as of this encounter Progress Notes * Candis [place] - 01/31/2025 12:04 PM EDT DORCAS Chirinos. Placed outbound call to patient to complete pre-visit planning. No answer at this time. Patient name and were not confirmed. CC left voicemail requesting return call. Direct contact information provided. documented in this encounter Plan of Treatment Upcoming Encounters Date Type Department Care Team (Late st Contact Info) Description 02/05/2025 1:40 PM EDT Office Visit [facility] [address] [place] [phone] 02/07/2025 2:00 PM EDT Office Visit [facility] [address] [place] [phone] Esther Hoang MD [address] [place] [phone] documented as of this encounter Visit Diagnoses Not on filedocumented in this encounter Additional Health Concerns Assessment Noted Time PHQ-9 Depression Total Score: 9 08/31/20 24 10:16 AM EST documented as of this encounter Care Teams Trestle Builder Relationship Specialty Start Date End Date Esther Hoang MD [address] [place] [phone] PCP - General Internal Medicine 09/15/23 documented as of this encounter
== END 2025-02-05 12:13 | disposition home or self-care (01) ==
PROVIDERS: Emergency Provider Emergency Medicine Emergency Medical Services; PCP Student in an Organized Health Care Education/Training Program
DX: H60.02 Abscess of left external ear (principal); H92.02 Otalgia, left ear
CPT/HCPCS: 10160; 99284

== ENCOUNTER 2025-03-05 13:14 | Emergency (ER) | payer MEDICAID, SELFPAY ==
--- NOTE | ~2025-03-05 | US_ITS ---
EXAMINATION: US SCROTUM WITH DOPPLER COMPLETE HISTORY: pain. COMPARISON: There are no prior studies available for comparison. FINDINGS: Real-time grayscale ultrasound imaging of the scrotum was performed. Color and spectral Doppler analysis was also performed. RIGHT TESTICLE: The right testis measures 4.5 x 2.1 x 3.0 cm and demonstrates normal homogeneous echotexture. There are scattered intratesticular calcifications. No masses are seen. There is increased color flow. The right testis demonstrates normal arterial and venous spectral Doppler waveforms. RIGHT EPIDIDYMIS: The right epididymis is normal in size and shape, but demonstrates increased vascularity. There is an epididymal head cyst measuring 2 mm. LEFT TESTICLE: The left testis measures 4.6 x 1.8 x 2.7 cm and demonstrates normal homogeneous echotexture. There are scattered intratesticular calcifications. No masses are seen. There is increased color flow. The left testis demonstrates normal arterial and venous spectral Doppler waveforms. LEFT EPIDIDYMIS: The left epididymis is normal in size and shape, but demonstrates increased vascularity. There is an epididymal head cyst measuring 5 x 5 x 6 mm. VARICOCELE: None. HYDROCELE: No significant hydrocele is seen. OTHER COMMENTS: None. US/US scrotum doppler IMPRESSION: Increased vascularity of the bilateral testes and epididymis suggestive of epididymoorchitis. Electronically signed by: Willy Pérez MD 03/05/2025 03:06 PM EDT
--- NOTE | ~2025-03-05 | CT_ITS ---
CLINICAL HISTORY: Right flank pain?stone CT abdomen and pelvis without contrast Comparison: None Findings: No consolidation or effusion. Small right adrenal adenoma. Otherwise unremarkable abdominal organs. No renal or ureteral calculus or hydronephrosis. No calcified gallstones. Small umbilical hernia containing fat. No bowel herniation. No bowel edema or evidence of bowel obstruction. Pelvic contents unremarkable. Normal appendix. No acute fracture. IMPRESSION: No acute findings. This document has been electronically signed by: Fide Levi MD on 03/05/2025 19:31:14
--- NOTE | ~2025-03-05 | US_ITS ---
EXAMINATION: US SCROTUM WITH DOPPLER COMPLETE HISTORY: pain. COMPARISON: There are no prior studies available for comparison. FINDINGS: Real-time grayscale ultrasound imaging of the scrotum was performed. Color and spectral Doppler analysis was also performed. RIGHT TESTICLE: The right testis measures 4.5 x 2.1 x 3.0 cm and demonstrates normal homogeneous echotexture. There are scattered intratesticular calcifications. No masses are seen. There is increased color flow. The right testis demonstrates normal arterial and venous spectral Doppler waveforms. RIGHT EPIDIDYMIS: The right epididymis is normal in size and shape, but demonstrates increased vascularity. There is an epididymal head cyst measuring 2 mm. LEFT TESTICLE: The left testis measures 4.6 x 1.8 x 2.7 cm and demonstrates normal homogeneous echotexture. There are scattered intratesticular calcifications. No masses are seen. There is increased color flow. The left testis demonstrates normal arterial and venous spectral Doppler waveforms. LEFT EPIDIDYMIS: The left epididymis is normal in size and shape, but demonstrates increased vascularity. There is an epididymal head cyst measuring 5 x 5 x 6 mm. VARICOCELE: None. HYDROCELE: No significant hydrocele is seen. OTHER COMMENTS: None. US/US scrotum IMPRESSION: Increased vascularity of the bilateral testes and epididymis suggestive of epididymoorchitis. Electronically signed by: Willy Pérez MD 03/05/2025 03:06 PM EDT
[2025-03-05 13:24] VITALS: BP 153/87; PULSE 68; RESP 18; TEMP 36.6; O2SAT 100; BMI 33.3
--- NOTE | 2025-03-05 13:29 | ED.GENADULT ---
HPI - General Adult General Chief complaint: Back Pain/Injury Stated complaint: lower back pain rad to legs Time Seen by Provider: 03/05/25 17:47 Source: patient Mode of arrival: ambulatory Limitations: no limitations History of Present Illness ED Provider: HPI narrative: Patient no significant past medical history noticed pain for last 3 days started in the right lower back radiating to the right lower abdominal and testicular denies any urinary complaints patient's father does have history of kidney stone no nausea no vomiting pain is intermittent sharp in character Related Data Home Medications ?Medication ?Instructions ?Recorded ?Confirmed amlodipine 5 mg tablet 5 mg PO Q12H 11/12/23 10/06/24 famotidine 40 mg tablet 40 mg PO QPM 11/12/23 10/06/24 losartan 100 1 tab PO QAM 11/12/23 10/06/24 mg-hydrochlorothiazide 25 mg tablet metoprolol succinate 50 mg 100 mg PO QAM 10/06/24 10/06/24 tablet,extended release 24 hr Previous Rx's ?Medication ?Instructions ?Recorded lisinopril 20 1 tab PO DAILY #30 tabs 07/22/20 mg-hydrochlorothiazide 12.5 mg tablet ondansetron 4 mg disintegrating 4 mg PO DAILY PRN nausea and 08/17/23 tablet vomiting 5 days #14 tabs cyclobenzaprine 10 mg tablet 10 mg PO Q8H #20 tabs 03/05/25 ibuprofen 600 mg tablet 600 mg PO Q6H PRN fever or pain 03/05/25 #30 tabs Allergies Allergy/AdvReac Type Severity Reaction Status Date / Time No Known Allergies Allergy Verified 03/05/25 13:25 [No Known Allergies*] Review of Systems Review of Systems: Yes all other systems are reviewed and are negative [facility] Past Medical History Surgical History H/O endoscopy Family History Family History Father Diabetes High blood cholesterol Sleep apnea Mother Thyroid disease Diabetes High blood cholesterol Sister Asthma Social History Social History Alcohol intake: former Patient Tobacco Use Status: Never used Tobacco Advance Directives: No Advance Directives Information Provided: No Do you have a plan to hurt others: No Plan Physical Exam ED Vital Signs: Vital Signs - 24 hr 03/05/25 13:24 03/05/25 20:36 Temperature 98 F 98 F Pulse Rate 68 68 Respiratory Rate 18 18 Blood Pressure 153/87 H 153/87 H Pulse Oximetry 100 100 Oxygen Delivery Method Room Air Room Air BMI result Body Mass Index 33.3 Appearance: Alert. Oriented X3. No acute distress. Eyes: No pallor or icterus ENT: Pharynx normal. Oral Mucosa moist Neck: Normal inspection. Neck supple. CVS: Normal heart rate and rhythm. Pulses normal. Respiratory: No respiratory distress. Equal air entry bilateral, no wheezing/rales/rhonchi Abdomen: Soft and nontender. Bowel sounds are present, no mass palpable, R CVA tenderness Skin: Skin warm and dry. Normal skin color. Normal skin turgor. Extremities: No lower extremity edema. No calf tenderness Neuro: Oriented X 3. Course Course Course Narrative: RME, this is a rapid medical exam performed by Jeremiah Sidhu please refer to primary provider for complete H&P- 34 year old male presents for evaluation of right lower back pain since Wednesday, 2 days ago. The rain is waxing and waning. His pain now radiates to the right lower abdomen and right testicle. Plan for labs, US of scrotum Medications Administered Discontinued Medications Generic Name Dose Route Start Last Admin Trade Name Freq PRN Reason Stop Dose Admin Ketorolac Tromethamine 60 mg 03/05/25 18:21 03/05/25 18:48 Ketorolac Tromethamine 60 Mg/2 Ml Vial IM 03/05/25 18:22 60 mg ONCE ONE Administration Medical Decision Making Medical Decision Making [facility] Narrative: Patient's CT scan negative for kidney stone ultrasound also negative for significant scrotal lesion pain likely musculoskeletal Differential Diagnosis Differential Diagnoses: The differential diagnosis associated with the presentation includes Kidney stone/musculoskeletal pain Lab Data [facility] Lab Attestation statement: I reviewed the patient's lab results. 03/05/25 13:45 03/05/25 13:45 Labs: Lab Results 03/05/25 Range/Units 13:45 WBC 8.0 (4.8-10.8) X10*3/uL RBC 5.03 (4.60-5.80) X10*6/uL Hgb 14.6 (14.0-18.0) g/dl Hct 42.0 (42.0-52.0) % MCV 83.5 (80.0-98.0) fL MCH 29.0 (27.0-33.0) pg MCHC 34.8 (31.0-36.0) g/dl RDW 13.0 (11.0-16.0) % Plt Count 270 (160-400) X10*3/uL MPV 9.8 (9.4-12.4) fL Immature Gran % (Auto) 0.3 (0.0-0.4) % Neut % (Auto) 66.9 (45-73) % Lymph % (Auto) 24.2 (20-40) % [place] % (Auto) 4.9 (2-11) % Eos % (Auto) 3.1 (0-4) % Baso % (Auto) 0.6 (0-2) % Lymph # (Auto) 1.9 (1.2-4.9) X10*3/uL [place] # (Auto) 0.4 (0.1-1.2) X10*3/uL Eos # (Auto) 0.3 (0.0-0.4) X10*3/uL Baso # (Auto) 0.1 (0.0-0.2) X10*3/uL Abs Immat Gran (auto) 0.02 (0.00-0.03) X10*3/uL Absolute Neuts (auto) 5.3 (2.0-8.3) x10*3/uL Absolute Nucleated RBC 0.000 (0.0-0.012) X10*3/uL Nucleated RBC % (auto) 0.0 (0.0-0.2) /100WBC Sodium 138 (135-145) mmol/L Potassium 3.5 (3.3-5.1) mmol/L Chloride 102 (96-108) mmol/L Carbon Dioxide 29 (22-29) mmol/L Anion Gap 11 L (12-20) BUN 15 (9-16) mg/dL Creatinine 0.95 (0.5-1.4) mg/dL Estim Creat Clear Calc 135.6 Estimated GFR > 60 Random Glucose 145 H (60-115) mg/dL Calcium 9.6 (8.4-10.2) mg/dL Total Bilirubin 0.5 (0.0-1.0) mg/dL AST 24 (5-37) U/L ALT 35 (0-40) U/L Alkaline Phosphatase 81 (39-117) U/L Total Protein 7.6 (6.5-8.0) g/dL Albumin 4.8 (3.5-5.0) g/dL Lipase 23 (8-78) U/L Urine Color Yellow Urine Appearance Clear Urine pH 6.0 (5.0-9.0) Ur Specific [place] 1.010 (1.005-1.025) Urine Protein Negative (Neg-Trace) mg/dL Urine Glucose (UA) Negative (Negative) mg/dL Urine Ketones Negative (Negative) mg/dL Urine Blood Negative (Negative) Urine Nitrite Negative (Negative) Ur Leukocyte Esterase Negative (Negative) Urine RBC 0-2 (0-2) /HPF Urine WBC 0-5 (0-5) /HPF Ur Squamous Epith Cells 0-2 (0-2) /HPF Urine Bacteria None Seen (None Seen) Hyaline Casts 0-2 (0-2) /LPF Independent Interpretation I performed an independent interpretation of an: Ultrasound Radiology Impression Discussion of test interpretation with radiology: I have reviewed the radiologist's reading. Discharge Plan Discharge Clinical Impression: Strain of lumbar region Patient Disposition: Home, Self-Care Instructions: Low Back Strain (ED) Additional Instructions: Your pain in the lower back likely musculoskeletal CT scan negative for kidney stone ultrasound also was negative for acute Take Tylenol/Motrin for pain Follow with your PCP Prescriptions: New cyclobenzaprine 10 mg tablet 10 mg PO Q8H Qty: 20 0RF ibuprofen 600 mg tablet 600 mg PO Q6H PRN (Reason: fever or pain) Qty: 30 0RF No Action lisinopril-hydrochlorothiazide 20-12.5 mg tablet 1 tab PO DAILY Qty: 30 2RF ondansetron 4 mg tablet,disintegrating 4 mg PO DAILY PRN (Reason: nausea and vomiting) 5 Days Qty: 14 0RF losartan-hydrochlorothiazide 100-25 mg tablet 1 tab PO QAM amlodipine 5 mg tablet 5 mg PO Q12H famotidine 40 mg tablet 40 mg PO QPM metoprolol succinate 50 mg tablet extended release 24 hr 100 mg PO QAM Stand Alone Forms: Work/School Release Interventions: ED Discharge Assessment Last Done: 03/05/25 20:36 Discharge Date/Time: 03/05/25 20:37 Print Language: Greenlandic
[2025-03-05 13:50] LABS: MANUAL DIFF FLAG NO
[2025-03-05 13:52] LABS: Appearance Urine Clear; Basophils Absolute Auto 0.1 X10*3/uL (0.0-0.2); Basophils Percent Auto 0.6 % (0-2); Color Urine Yellow; Eosinophils Absolute Auto 0.3 X10*3/uL (0.0-0.4); Eosinophils Percent Auto 3.1 % (0-4); Glucose Urine UA Negative (Negative); Hemoglobin 14.6 g/dl (14.0-18.0); Imm Gran Abs Auto 0.02 X10*3/uL (0.00-0.03); Imm Gran Pct Auto 0.3 % (0.0-0.4); Leukocyte Esterase Urine Negative (Negative); Lymphocytes Absolute Auto 1.9 X10*3/uL (1.2-4.9); Lymphocytes Percent Auto 24.2 % (20-40); Mean Corpuscular HGB Conc 34.8 g/dl (31.0-36.0); Mean Corpuscular Volume 83.5 fL (80.0-98.0); Mean Platelet Volume 9.8 fL (9.4-12.4); Monocytes Absolute Auto 0.4 X10*3/uL (0.1-1.2); Monocytes Percent Auto 4.9 % (2-11); Neutrophils Absolute Auto 5.3 x10*3/uL (2.0-8.3); Neutrophils Percent Auto 66.9 % (45-73); Nitrite Urine Negative (Negative); Platelet Count 270 X10*3/uL (160-400); Red Blood Count 5.03 X10*6/uL (4.60-5.80); Urine Blood Negative (Negative); Urine Ketones Negative (Negative); Urine Protein Negative (Neg-Trace)
[2025-03-05 13:55] LABS: Bacteria Urine None Seen (None Seen); Hyaline Casts Urine 0-2 /LPF (0-2); RBC Urine 0-2 /HPF (0-2); Squamous Epithelial Cell Urine 0-2 /HPF (0-2); WBC Urine 0-5 /HPF (0-5)
[2025-03-05 14:08] LABS: Alanine Aminotransferase 35 U/L (0-40); Albumin Level 4.8 g/dL (3.5-5.0); Alkaline Phosphatase 81 U/L (39-117); Anion Gap 11 (12-20); Aspartate Amino Transferase 24 U/L (5-37); Bilirubin Total 0.5 mg/dL (0.0-1.0); Blood Urea Nitrogen 15 mg/dL (9-16); Calcium 9.6 mg/dL (8.4-10.2); Carbon Dioxide 29 mmol/L (22-29); Chloride 102 mmol/L (96-108); Creatinine Clr Calc Pharmacy 135.6; Estimated Glomerular Filt Rate > 60; Glucose Random 145 mg/dL (60-115); Lipase 23 U/L (8-78); Potassium 3.5 mmol/L (3.3-5.1); Sodium 138 mmol/L (135-145); Total Protein 7.6 g/dL (6.5-8.0)
--- OUTSIDE RECORDS SUMMARY | 2025-03-05 17:59 | XMS_ITS | Encounter Summary ---
Author Organization [employer] Address [address] [place] [address] 7 [place] [address] Care Team Providers Care Clothes Wringer Name Role Phone Esther Hoang MD Primary Care Pro vider Reason for Visit * Reason Onset Date Comments Med Refill 10/21/2023 Encounter Details Date Type Department Care Team (Late st Contact Info) Description 10/21/2023 Telephone [facility] [address] [place] [address] [phone] Esther Hoang MD [address] [place] [phone] Med Refill Social History Tobacco Use Types [...] with others, in a hotel, in a half-way, living outside on the street, on a [...] the past 12 months, has t he [email or web address], gas, oil or water [employer] threatened to shut off services in your [...] 40 MG tablet To be sent to: [facility] - [place], [place] - [address] [facility] documented in this encounter Plan of Treatment Upcoming Encounters Date Type Department Care Team ([facility] st Contact Info) Description 03/27/2025 3:00 PM EDT Nutrition [facility] DIABETES/NUTRITION [address] [place] [address] Radha Gray, ANGEL [address] [place], [place] [phone] 04/17/2025 2:15 PM EDT Office Visit [facility] [address] [place], [place] [phone] Esther Hoang MD [address] [place] [address] documented as of this encounter Visit Diagnoses Not on filedocumented in this encounter Additional Health Concerns Assessment Noted Time PHQ-9 Depression Total Score: 16 023 11:04 AM EST documented as of this encounter Care Teams Clothes Wringer Relationship Specialty Start Date End Date Esther Hoang MD [address] [place], [place] [phone] PCP - General Internal Medicine 09/15/23 documented as of this encounter
[2025-03-05] MEDS: Ketorolac Tromethamine 60 MG/2 ML VIAL IM (18:48)
--- NOTE | 2025-03-05 18:52 | PC.NURSE ---
Toradol given as ordered to left deltoid. In [facility] right deltoid was marked because originally, that's where the patient asked for the medication to be given, but he changed his mind. Medication administered to left deltoid.
--- NOTE | 2025-03-05 18:52 | PC.NURSE ---
Away for radiology.
[2025-03-05 20:36] VITALS: BP 153/87; PULSE 68; RESP 18; TEMP 36.6; O2SAT 100
== END 2025-03-05 20:37 | disposition home or self-care (01) ==
PROVIDERS: Physician Assistant; Emergency Provider Internal Medicine; PCP Student in an Organized Health Care Education/Training Program
DX: S39.012A Strain of muscle, fascia and tendon of lower back, initial encounter (principal); N50.812 Left testicular pain; N50.811 Right testicular pain; R10.2 Pelvic and perineal pain; X58.XXXA Exposure to other specified factors, initial encounter; Y93.9 Activity, unspecified; Y92.9 Unspecified place or not applicable; Y99.8 Other external cause status; Z79.899 Other long term (current) drug therapy
CPT/HCPCS: 36415; 74176; 76870; 80053; 81001; 83690; 85025; 93975; 96372; 99283; 99284; J1885

== ENCOUNTER → 2025-03-05 13:28 | Outpatient (BNV) | payer MEDICAID, SELFPAY | PROVIDERS: PCP Student in an Organized Health Care Education/Training Program; Visit Provider Radiology Diagnostic Radiology | DX: R10.9 Unspecified abdominal pain (principal); N50.1 Vascular disorders of male genital organs | CPT/HCPCS: 74176; 93975 ==

== ENCOUNTER 2025-04-10 15:03 | Outpatient (AMB) | payer MEDICAID, SELFPAY ==
[2025-04-10 15:11] VITALS: BP 120/84; PULSE 79; O2SAT 97; BMI 34.5
--- NOTE | 2025-04-10 15:11 | A.OFFVIS_ITS ---
Vital Signs 04/10/25 15:11 Height 5 ft 10 in Weight 240 lb 2 oz BMI 34.5 BP 120/84 Blood Pressure Location Rt brachial Position Sitting Pulse 79 Pulse Source Pulse Oximeter Pulse Oximetry (%) 97 Oxygen Delivery Method Room Air Intake Visit Reasons: Follow Up 6mo Intake Note: Patient presents 6 month follow up for MICHAEL. Manager Procurement Required: Yes Manager Procurement Language: Bermudian Allergies No Known Allergies (No Known Allergies*) Allergy (Verified 04/10/25 15:11) Medication List - Last Reconciled 04/10/25 by BRY Esparza amlodipine 5 mg PO Q12H cyclobenzaprine 10 mg PO Q8H famotidine 40 mg PO QPM ibuprofen 600 mg PO Q6H PRN losartan-hydrochlorothiazide 100-25 mg 1 tab PO QAM metoprolol succinate ER 100 mg PO QAM ondansetron 4 mg PO DAILY PRN 5 days HPI Comments Details: 34-yr-old male presents for follow-up visit for sleep apnea. Since last visit, patient has stopped CPAP as he was cleared to undergo nasal surgery. Pt underwent Maxillary antrostomy with removal disease, Maxillary antrostomy with removal disease, Endoscopic?right anterior ethmoidectomy, septoplasty, and Bilateral inferior turbinate reduction by Dr Villanueva at [facility] on 02/06/25. Patient denies any postop complications. He states that ENT has cleared him to undergo follow-up sleep study to assess the status of his sleep apnea. He has a follow-up appointment with ENT in April. Since, patient states that he has sleeping better and has a snoring. He does sleep lose had elevated. His blood pressure has started to be better controlled since the surgery. He states his daytime energy level better as long as he is able to sleep but s ufficient amount of time-which can vary based on his work schedule. Previous sleep studies? 12/29/2024, HST: mild sleep apnea w/ AHI 9.4/hr and O2 kacy 80%. SpO2 < 90% x's 20 min, < 88% x's 5 min. PFSH Surgical History H/O endoscopy Family History Father Diabetes High blood cholesterol Sleep apnea Mother Thyroid disease Diabetes High blood cholesterol Sister Asthma Social History Alcohol intake: former Patient Tobacco Use Status: Never used Tobacco Physical Exam Vital Signs: Last Vital Signs Pulse 79 04/10/25 15:11 BP 120/84 04/10/25 15:11 Pulse Ox 97 04/10/25 15:11 Oxygen Delivery Method Room Air 04/10/25 15:11 BMI result Body Mass Index 34.5 Const General: no acute distress Orientation/consciousness: patient oriented x3 HEENT Other: Hoarse voice Neuro General: patient oriented x3 Cranial nerves: Yes CN's II-XII intact bilaterally Gait exam (Neuro): Normal gait present Motor exam (neuro): 5/5 motor strength present throughout Psych Mental Status: mental status grossly normal Speech and movement: Clear speech present Attitude: cooperative Assessment & Plan Assessment & Plan (1) Mild obstructive sleep apnea: Code(s): G47.33 - Obstructive sleep apnea (adult) (pediatric) Category: Medical (2) Obesity (BMI 30.0-34.9): Code(s): E66.811 - Obesity, class 1 Category: Medical (3) S/P nasal surgery: Comment: 02/06/2025, Maxillary antrostomy with removal disease, Maxillary antrostomy with removal disease, Endoscopic?right anterior ethmoidectomy, septoplasty, Bilateral inferior turbinate reduction. Code(s): Z98.890 - Other specified postprocedural states Category: Surgical Plan HST results- mild MICHAEL w/ mild degree of nocturnal hypoxemia- may have under estimated degree of sleep apnea as patient sleeps with head elevated at home. Patient has stopped APAP, as he has undergone nasal surgery. We will request in-lab sleep study to assess status of sleep apnea following multifaceted nasal surgery in January 2025. Patient never heard from [facility] weight management clinic, but states he is following up with his PCP regarding weight management. Pt advised to call us w/ any questions or concerns. Will follow-up upon review of above and patient to follow-up in clinic in 6 months or sooner prn. Orders: Orders RT PSG in-lab sleep study Today G47.33 - Obstructive sleep apnea (adult) (pediatric), Z98.890 - Other specified postprocedural states Coding Level of Care Code Est Pt Level 3 (43062) Diagnoses Mild obstructive sleep apnea G47.33 Obesity (BMI 30.0-34.9) E66.811 S/P nasal surgery Z98.890
--- OUTSIDE RECORDS SUMMARY | 2025-04-10 16:20 | XMS_ITS | Encounter Summary ---
Author Organization [employer] Address [address] [place] [address] [address] [place] [address] Care Team Providers Care Heavy Truck Technician Name Role Phone Esther Hoang MD Primary Care Pro vider Reason for Visit * Reason Onset Date Comments Med Refill 10/21/2023 Encounter Details Date Type Department Care Team (Late st Contact Info) Description 10/21/2023 Telephone [facility] [address] [place] [address] [phone] Esther Hoang MD [address] [place] [address] Med Refill Social History Tobacco Use Types [...] the past 12 months, has t he [employer], gas, oil or water company threatened to [...] 40 MG tablet To be sent to: [facility] - [place], [place] - [address] [place] [address] documented in this encounter Plan of Treatment Upcoming Encounters Date Type Department Care Team ([facility] st Contact Info) Description 04/17/2025 2:15 PM EDT Office Visit [facility] [address] [place], [place] [phone] Esther Hoang MD [address] [place], [place] [phone] documented as of this encounter Visit Diagnoses Not on filedocumented in this encounter Additional Health Concerns Assessment Noted Time PHQ-9 Depression Total Score: 16 023 11:04 AM EST documented as of this encounter Care Teams Heavy Truck Technician Relationship Specialty Start Date End Date Esther Hoang MD [address] [place] [address] PCP - General Internal Medicine 09/15/23 documented as of this encounter
--- OUTSIDE RECORDS SUMMARY | 2025-04-10 16:20 | XMS_ITS | Clinical Summary ---
Author Organization [employer] [facility] Address [address] [place] [address] Care Team Providers Care Citrix Architect Name Role Phone Unavailable Primary Care Provider [...] Annual BMP Blood Test 07/22/2024 Influenza Vaccine (#1) 2025 HIB Vaccines Aged Out No longer [...] 5 Years) and At-Risk Patients (6 to 49 Years) Aged Out No longer eligible b ased on patient's age to complete this topic RSV Immunization Patients Un lisy 20 months Aged Out No longer eligible b ased on patient's age to complete this topic Varicella Vaccines Aged Out No longer eligible based on patient's age to complete this topic
--- OUTSIDE RECORDS SUMMARY | 2025-04-10 16:20 | XMS_ITS | Data Portability ---
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 No obvious purulence or mucosal edema. Recommend right maxillary and partial ethmoidectomy FESS, polypectomy, and septoplasty. jojo Not available 12/28/2024 12:51:57 02/09/2025 02/09/2025 34yo male presents following presents following septoplasty, turbinate reduction, and right FESS with polypectomy on 02/06/[address] Villa. Patient is doing well post-operatively . Wells splints removed and nasal cavities debrided. Recommend Afrin if continued bleeding for up to three days. Reviewed post-operative nasal precautions including avoiding nose blowing, sneezing with mouth open, and heavy lifting greater than 15 pounds for two weeks following surgery. Patient will continue nasal saline spray 6 times daily. Follow up in 2 weeks with MD. [email or web address] Not available 02/09/2025 09:56:05 02/21/2025 02/21/2025 Moderate crusting removed from right side. Reviewed pathology and need for close follow up. He has chronic hoarseness and we will follow-up with fiberoptic examination next time jojo Not available 02/21/2025 16:06:42 03/19/2025 03/19/2025 30 degree endoscopy shows only mild swelling along maxillary ostium Chronic hoarseness- bilateral edema and severe hyperfunction Suggest stop famotidine and switch omeprazole. 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 Referral None recorded. Procedures None recorded. Surgeries endoscopy , nasal/sin us, surgical, with biopsy, polypecto my or debrideme nt (SURG) 2024 025 [email or web address] Not available 01/03/2025 09:22:04 endoscopy , nasal/sin us, w/ maxillary antrostom y & tissue removal (SURG) 2024 025 [email or web address] Not available 01/03/2025 09:22:16 endoscopy , nasal/sin us w/ partial ethmoidec angelina (SURG) 2024 025 [email or web address] Not available 01/03/2025 09:22:30 septoplas ty and turbinate reduction (SURG) 2024 025 Not available 01/03/2025 09:22:43 Imaging None recorded. Medication Orders omeprazol e 40 mg capsule,d elayed release 2024 025 [facility] #[id number], [address] [facility], [place], [address], 03/19/2025 16:01:19 Patient TargetsNo targets recorded. Patient InstructionsNo instructions recorded. Reason for Referral None Reported. Results Created Date Observation Date Name Description Value Unit Range Abnormal Flag Note LastModifiedBy Organization Detail LastModifiedTime 03/21/20 24 03/20/2024 CT, sinus es, w/o contr ast No observ ation record ed. CHRISTOPHER [facility] [place] [address], [place], [address], 03/22/2024 13:36:47 02/14/20 25 02/06/2025 clini cyndi photo * No observ ation record ed. [email or web address] Not Available 01/26 09:06:58 02/14/20 25 02/06/2025 clini cyndi photo * No observ ation record ed. [email or web address] Not Available 01/26 09:08:15 Result Notes None recorded. Problems Name Problem SNOMED Code Status Onset Date Resolution Date Notes Provider Name and Address Organization Details Recorded Time Polyp of nasal cavity 911093166 Active 2023 TRICIA HARVEY MD [address] [facility],[place] [address], [place], [address] , [place] - [facility] 4 15:32:25 Chronic hoarsenes s 17789689933 05 Active 2023 TRICIA HARVEY MD 100 [facility], [place], [address] , [place] [facility] 5 16:06:55 Dysphonia 06106131 Active 2023 Hoarsenes s; Note: Date Diagnosed : 01/19/2024 2:29 PM (R49.0) Not Available [facility] 4 03:19:00 Gastroeso phageal reflux disease without esophagit is 908195382 Active 2023 Gastro-es ophageal reflux disease without esophagit is; Note: Date Diagnosed : 01/19/2024 2:29 PM (K21.9) Not Available [facility] 4 03:19:00 Allergic rhinitis 93424643 Active 2023 Allergic rhinitis: Due to other allergen; Note: Date Diagnosed : 02/07/2024 11:06 AM (477.8) Not Available [facility] 4 03:19:00 Deviated nasal septum 225603631 Active 2024 TRICIA HARVEY MD [address] [facility],[place] [address], [place], [address] , [place] - [facility] 5 12:04:00 Benign inverted papilloma 33634630889 9103 Active 2024 TRICIA HARVEY MD [address],[place] [address], [place], [address] , [place] [facility] 5 16:05:03 Chronic sinusitis 59895795 Active 2024 TRICIA HARVEY MD [address] [facility],[place] [address], [place], [address] , [place] [facility] 5 16:05:20 Gastroeso phageal reflux disease 513097588 Active 2024 TRICIA HARVEY MD [address] [facility] [address], [place], [address] , [place] [facility] 5 16:00:14 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 - [facility] 5 16:18:39 Problem Notes None recorded. Procedures Surgical History Date Name Laterality Status Provider Name and Address Organization Details Recorded Time 03/19/20 25 JMSNasal/Sinus Endoscopy-PRIOR surgical cavities completed TRICIA VILLA MD [address] [facility],[place] [address], [place], [address], [facility] - [facility] 03/19/2025 15:56:27 03/19/20 25 Fiberoptic Laryngoscopy (Comprehensive) completed TRICIA VILLA MD [address] [facility],[place] [address], [place], [address], [facility] - [facility] 03/19/2025 16:18:21 02/22/20 25 JMSNasal/Sinus Endoscopy-DEBRIDE MENT completed TRICIA VILLA MD [address] [facility],[place] [address] [place] [address], [address], [facility] - [facility] 02/21/2025 16:04:51 02/10/20 25 JMSNasal/Sinus Endoscopy-DEBRIDE MENT completed GENEVIEVE HA PA-C [address] [facility],[place] [address] [place] [address], [address], [facility] - [facility] 02/09/2025 09:55:35 02/07/20 25 nasal septoplasty completed TRICIA VILLA MD [address] [facility],[address], [address], [facility] - [facility] 02/06/2025 16:46:28 02/07/20 25 nasal endoscopy with maxillary antrostomy completed TRICIA VILLA MD [address] [facility],[address], [address], [facility] 02/06/2025 16:46:36 02/07/20 25 nasal endoscopy with partial ethmoidectomy completed TRICIA VILLA MD [address] [facility],[address], [address], [facility] 02/06/2025 16:46:43 12/29/19 25 Nasal Endoscopy completed TRICIA VILLA MD [address] [facility],[address], [address], [facility] 12/28/2024 12:03:55 submucous resection of nasal turbinate completed TRICIA VILLA MD [address] [facility],[address], [address], [facility] 02/06/2025 16:46:49 Imaging Results None recorded. Procedure Notes None recorded. Medical Equipment None Reported. Allergies No known drug allergies Medications Name Sig Start Date Stop Date Status Note LastModified by Organization Details LastModified Time cyclobenz aprine 10 mg tablet TAKE 1 TABLET BY MOUTH EVERY 8 HOURS 03/19 completed Not Available Not Available Not Available Saline Mist 0.65 % nasal spray aerosol ADMINIST ER 1 SPRAY INTO EACH NOSTRIL IF NEEDED FOR CONGESTI ON. 03/19 completed Not Available Not Available Not Available metoprolo l succinate ER 50 mg tablet,ex tended release 24 hr TAKE 1 TABLET BY MOUTH EVERY MORNING. DO NOT BREAK, CRUSH, DISSOLVE OR CHEW 02/09 completed Not Available Not Available Not Available famotidin e 40 mg tablet 02/09 completed Medicati on ID: [id number] B rand Name: manuel garcia Send Method: E-Prescr ibed Sub s Allowed: subs OK Speci al Instruct ion: TOME JONO TABLETA POR V A ORAL EN LA NOCHE Me dication GenericN kathryn: famotidi ne Not Available Not Available Not Available metoprolo l succinate ER 100 mg tablet,ex tended release 24 hr TAKE 1 TABLET BY MOUTH EVERY MORNING. DO NOT BREAK, CRUSH, DISSOLVE OR CHEW active Not Available Not Available No t Available sumatript an 50 mg tablet PLEASE SEE ATTACHED FOR DETAILED DIRECTIO NS 03/19 completed Not Available Not Available Not Available amlodipin e 5 mg tablet TOME 1 TABLETA POR V A ORAL DOS VECES AL D A active Not Available Not Available No t Available omeprazol e 40 mg capsule,d elayed release TOME 1 C PSULA POR V A ORAL TODOS LOS D active Not Available Not Available No t Available acetamino phen 500 mg tablet TOME DOS TABLETAS POR V A ORAL CADA SEIS HORAS CUANDO SEA NECESARI O PARA EL DOLOR 03/19 completed Not Available Not Available Not Available losartan 100 mg-hydroc hlorothia zide 25 mg tablet TAKE 1 TABLET BY MOUTH EVERY MORNNING active Not Available Not Available No t Available famotidin e 20 mg tablet TOME 1 TABLETA POR V A ORAL DOS VECES AL D A active Not Available Not Available No t Available oseltamiv ir 75 mg capsule TAKE 1 CAPSULE BY MOUTH TWICE DAILY FOR 5 DAYS 03/10 completed Not Available Not Available Not Available triamcino lone acetonide 0.1 % topical ointment APPLY TOPICALL Y 2 TIMES DAILY TO HAND FOR NO MORE THAN 7 DAYS 03/19 completed Not Available Not Available Not Available ibuprofen 400 mg tablet TAKE 1 TABLET BY MOUTH EVERY 6 HOURS IF NEEDED FOR MODERATE PAIN OR FEVER FOR UP TO 30 DOSES. 03/19 completed Not Available Not Available Not Available docusate sodium 100 mg capsule TOME 1 C PSULA POR V A ORAL DOS VECES AL D A active Not Available Not Available No t Available Banophen 25 mg capsule TOME 1 C PSULA POR V A ORAL CADA OCHO HORAS CUANDO SEA NECESARI O PARA LA PICAZ N 03/19 completed Not Available Not Available Not Available ammonium lactate 12 % topical cream APPLY TOPICALL Y IF NEEDED FOR DRY SKIN. 03/19 completed Not Available Not Available Not Available ibuprofen 600 mg tablet TAKE 1 TABLET ORALLY EVERY 6 HOURS NEEDED FOR FEVER OR PAIN 03/19 completed Not Available Not Available Not Available ondansetr on 4 mg disintegr ating tablet DISSOLVE 1 TABLET BY MOUTH EVERY DAY NEEDED FOR NAUSEA AND VOMITING FOR 5 DAYS 03/19 completed Not Available Not Available Not Available fluticaso ne propionat e 50 mcg/actua tion nasal spray,stephanie pension INSTILL 1 SPRAY INTO BOTH NOSTRILS ONCE DAILY, SHAKE GENTLY BEFORE USE 03/19 completed Not Available Not Available Not Available doxycycli ne hyclate 100 mg tablet TAKE 1 TAB 2 TIMES DAILY X7 DAYS,PAOLO E WITH FULL GLASS WATER & DO NOT LIE DOWN FOR 30 MINUTES AFTER. 03/10 completed Not Available Not Available Not Available amoxicill in 875 mg-potass ium clavulana te 125 mg tablet TOME 1 TABLETA POR V A ORAL DOS VECES AL D A 02/09 completed Not Available Not Available Not Available Fiber (calcium polycarbo ewa) 625 mg tablet TAKE 1 TABLET (625 MG) BY MOUTH 2 TIMES DAILY. active Not Available Not Available No t Available blood pressure test kit-large cuff USE TO CHECK BLOOD PRESSURE TWICE DAILY active Not Available Not Available No t Available Gavilax 17 gram/dose oral powder TAKE 17 GRAMS BY MOUTH IF NEEDED EACH DAY FOR CONSTIPA TION FOR UP TO 3 DAYS. active Not Available Not Available No t Available Zepbound 2.5 mg/0.5 mL subcutane ous pen injector INJECT 1 PEN SUBCUTAN EOUSLY ONCE WEEKLY active Not Available Not Available No t Available Vitals Date Recorded Body height Body mass index (BMI) Body weight Provider Name and Address Organization Details Last Updated DateTime 12/28/2024 177.8 cm 28.7 kg/m2 89309.47 g Ann Ana Laura [place] - [facility] 12/28/2024 10:55:36 Date Recorded Body height Body mass index (BMI) Body weight Provider Name and Address Organization Details Last Updated DateTime 02/09/2025 177.8 cm 34.4 kg/m2 503593.17 g Kallie Gómez [place] - [facility] 02/09/2025 09:36:23 Date Recorded Body height Body weight Provider Name and Address Organization Details Last Updated DateTime 03/10/2024 177.8 cm 41096.32 g Jenifer Fallon [place] - [facility] 03/10/2024 08:47:38 Date Recorded Body height Body mass index (BMI) Body weight Provider Name and Address Organization Details Last Updated DateTime 03/19/2025 177.8 cm 35.2 kg/m2 366916.13 g Kallie Gómez [facility] 03/19/2025 15:36:51 Social History None recorded. Functional Status None recorded. Mental Status None recorded. Family History Nothing Reported. Medical History Condition Response GERD/Reflux Y Hypertension Y Past Encounters Encounter ID Performer Location Encounter Start Date Encounter Closed Date Diagnosis/Indication Diagnosis SNOMED-CT Code Diagnosis ICD10 Code Diagnosis Note [id number] TRICIA HARVEY MD [facility] [address] [address] 03/10/2024 08:29:32 03/10/2024 09:05:57 Polyp of nasal cavity 683457448 J33.[address] pending[address] Allergy minimal CT end of the month. Brochure given re sinus surgery Chronic hoarseness 79433 56102 105 R49.0 waiting for speech therapy. Working with PCP on GERD management [id number] TRICIA HARVEY MD [facility] [address] [address] 12/28/2024 10:32:28 12/28/2024 12:13:10 Allergic rhinitis 33832320 J30.9 Polyp of nasal cavity 73 0542089 J33.0 The risks and benefits of endoscopic sinus surgery and septoplast y were discussed with the patient, including: bleeding, infection, anosmia (loss of sense of smell), epiphora (tearing), double vision, loss of vision, CSF leak, continued nasal obstructio n, brain injury, septal perforatio n, Empty Nose syndrome and continued sinus infections . The patient's questions regarding surgery were discussed in detail and their concerns were addressed. The patient provided verbal informed consent and surgery will be scheduled in the near future. Deviated nasal septum 12 9250395 J34.2 [id number] GENEVIEVE HA PA-C [facility] [address] [address] 02/09/2025 09:29:02 02/09/2025 09:55:45 Deviated nasal septum 216863361 J34.2 Polyp of nasal cavity 73 6266268 J33.0 [id number] TRICIA HARVEY MD [facility] [address] [address] 02/21/2025 15:30:36 02/22/2025 13:17:17 Benign inverted papilloma 1187797907 29733 D36.9 Chronic sinusitis 259855 00 J32.8 Needs aggressive saline irrigation s twice daily Chronic hoarseness 96514 84106 105 R49.0 FOL next visit [id number] TRICIA HARVEY MD [facility] [address] [address] 03/19/2025 15:12:55 03/19/2025 16:05:13 Gastroesophageal reflux disease 201095406 K21.9 Benign elvira plasm of accessory sinus 07836279 D14.0 No evidence of persistent or recurrent inverted papilloma at the present time. There is a small amount of swelling along the inferior aspect of the maxillary ostium. We discussed possibly proceeding with medial maxillecto my. He wants to see how things go over the next couple of months. Chronic hoarseness 76328 00001 105 R49.0 FOL next visit Health Concerns Section Related Observation LastModified by Organization Maricarmen ruiz LastModified Time None Recorded Concern Status LastModified by Organization Details LastModified Time None Recorded Advance Directives Directive None Recorded Payers Insurance Date Sequence Insurance Name Policy Number Policy Orozco Covered Member ID Orozco Member ID Guarantor Name 03/19/2025 1 [place] [facility] Gregory Huston [id number] Gregory Huston Notes Date Note Type Note [...] discussed Ref[employer] which is available on [employer]. Patient has been referred to GI and will follow-up for further management of GERD. 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 Congestion is bilateral. He reports associated right sided facial pain. Denies nasal drainage or anosmia. CT maxillofacial 03/16/2024 demonstrated obstructive right antrochoanal polyp with completely opacified right maxillary sinus. [place] delayed follow-up TRICIA VILLA MD [address] [facility],[place] [address], [place], [address], [place] [facility] 12/28/2024 12:52:23 02/09/2025 text/html 34yo male presen ts following presents following septo, turb, and right FESS with polypectomy on 02/06/[address] Villa. Pathology is not available for review in chart. Patient irrigates with saline daily. Denies nasal bleeding. Pain is improving. He manages pain with tylenol. TRICIA VILLA MD [address] [facility],[place] [address], [place], [address], [facility] - [facility] 02/09/2025 10:38:43 03/19/2025 text/html Hx of right inverted papilloma. Chronic hoarseness feels worse lately. More GERD recently.Famotidin e not controlling sx TRICIA VILLA MD [address] [facility],[place] [address], [place], [address], [facility] - [facility] 03/19/2025 16:20:21
== END 2025-04-10 16:12 | disposition home or self-care (01) ==
LOC: HO.HSMS 15:04
PROVIDERS: PCP Physician Assistant; Visit Provider Nurse Practitioner Family
DX: G47.33 Obstructive sleep apnea (adult) (pediatric) (principal); E66.811 Obesity, class 1; Z98.890 Other specified postprocedural states
CPT/HCPCS: 99213

== ENCOUNTER → 2025-04-10 15:03 | Outpatient (BNVA) | payer MEDICAID, SELFPAY | PROVIDERS: PCP Physician Assistant; Visit Provider Nurse Practitioner Family | DX: G47.33 Obstructive sleep apnea (adult) (pediatric) (principal); E66.811 Obesity, class 1; Z98.890 Other specified postprocedural states | CPT/HCPCS: 99212 ==

== ENCOUNTER → 2025-05-06 20:30 | Outpatient (REF) | payer MEDICAID, SELFPAY ==
--- OUTSIDE RECORDS SUMMARY | 2025-05-06 21:43 | XMS_ITS | Clinical Summary ---
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
== END ==
LOC: HO.SL 20:30
PROVIDERS: PCP Physician Assistant; Visit Provider Nurse Practitioner Family
DX: G47.33 Obstructive sleep apnea (adult) (pediatric) (principal); Z98.890 Other specified postprocedural states
CPT/HCPCS: 95811

== ENCOUNTER → 2025-05-06 21:29 | Outpatient (BNV) | payer MEDICAID, SELFPAY | PROVIDERS: PCP Physician Assistant; Visit Provider Psychiatry & Neurology Neurology | DX: G47.33 Obstructive sleep apnea (adult) (pediatric) (principal) | CPT/HCPCS: 95811 ==

== ENCOUNTER 2025-07-23 08:07 | Outpatient (REF) | payer MEDICAID, SELFPAY ==
[2025-07-23 11:34] LABS: MANUAL DIFF FLAG NO
[2025-07-23 11:57] LABS: Hematocrit 44.6 % (42.0-52.0); Hemoglobin 14.9 g/dl (14.0-18.0); Imm Gran Abs Auto 0.02 X10*3/uL (0.00-0.03); Imm Gran Pct Auto 0.3 % (0.0-0.4); Lymphocytes Absolute Auto 1.9 X10*3/uL (1.2-4.9); Mean Corpuscular HGB Conc 33.4 g/dl (31.0-36.0); Mean Corpuscular Hemoglobin 28.1 pg (27.0-33.0); Mean Corpuscular Volume 84.2 fL (80.0-98.0); NRBC Abs Auto 0.000 X10*3/uL (0.0-0.012); NRBC Pct Auto 0.0 /100WBC (0.0-0.2); Platelet Count 279 X10*3/uL (160-400); Red Blood Count 5.30 X10*6/uL (4.60-5.80); White Blood Count 7.5 X10*3/uL (4.8-10.8)
[2025-07-23 12:07] LABS: Microalbum/Creatinine Ratio Ur 6.0 ug/mg cr (<30)
[2025-07-23 12:18] LABS: Hemoglobin A1C 150.8198 umol/L
[2025-07-23 12:23] LABS: Alanine Aminotransferase 40 U/L (0-40); Albumin Level 4.7 g/dL (3.5-5.0); Alkaline Phosphatase 71 U/L (39-117); Anion Gap 9 (12-20); Aspartate Amino Transferase 30 U/L (5-37); Blood Urea Nitrogen 17 mg/dL (9-16); Calcium 9.2 mg/dL (8.4-10.2); Carbon Dioxide 27 mmol/L (22-29); Chloride 106 mmol/L (96-108); Cholesterol 152 mg/dL (<200); Estimated Glomerular Filt Rate > 60; HDL Cholesterol 39 mg/dL (>40); Potassium 4.2 mmol/L (3.3-5.1); Sodium 138 mmol/L (135-145); Total Protein 7.5 g/dL (6.5-8.0); Triglycerides 62 mg/dL (<150)
[2025-07-23 12:24] LABS: Syphilis Screen Nonreactive (Nonreactive)
[2025-07-23 12:27] LABS: HBS Num1 2.35 mIU/mL (0-7.99); HBc Num1 0.07 S/CO (0.00-0.79); HBsAGNum1 0.42 S/CO (0.00-0.99); HIV Num 1 0.05 S/CO (0.00-0.99); Hepatitis B Surface Antigen Negative (Negative); ~HepC Num1 0.08 S/CO (0.00-0.79); ~Hepatitis B Surface Antibody NONREACTIVE (Nonreactive); ~Hepatitis C Antibody Nonreactive (Nonreactive)
[2025-07-23 13:33] LABS: CT PCR Urine NOT DETECTED (Not Detect.); NG PCR Urine NOT DETECTED (Not Detect.)
== END 2025-07-23 08:08 | disposition home or self-care (01) ==
LOC: HO.HHCL 08:07
PROVIDERS: PCP Student in an Organized Health Care Education/Training Program; Visit Provider Student in an Organized Health Care Education/Training Program
DX: Z00.00 Encounter for general adult medical examination without abnormal findings (principal); Z20.2 Contact with and (suspected) exposure to infections with a predominantly sexual mode of transmission; Z11.4 Encounter for screening for human immunodeficiency virus [HIV]; Z11.59 Encounter for screening for other viral diseases
CPT/HCPCS: 80053; 80061; 82043; 82306; 82570; 83036; 84443; 85025; 86704; 86706; 86780; 86803; 87340; 87389; 87491; 87591

== ENCOUNTER 2025-07-24 13:26 | Outpatient (AMB) | payer MEDICAID, SELFPAY ==
[2025-07-24 13:42] VITALS: BP 140/90; PULSE 61; O2SAT 99; BMI 33.6
--- NOTE | 2025-07-24 13:42 | A.OFFVIS_ITS ---
Vital Signs 07/24/25 13:42 Height 5 ft 10 in Weight 234 lb 8 oz BMI 33.6 BP 140/90 H Blood Pressure Location Rt brachial Position Sitting Pulse 61 Pulse Source Pulse Oximeter Pulse Oximetry (%) 99 Oxygen Delivery Method Room Air Intake Visit Reasons: sleep study results Intake Note: Patient presents follow up MICHAEL. PSG in chart(AHI-26, CARLY-79%. trailed at 4- 10cm, stabilized at 7-10cm. CPAP 10cm with nasal mask). Accompanied by: Self / Same As Patient Allergies No Known Allergies (No Known Allergies*) Allergy (Verified 07/24/25 13:45) HPI Comments Details: 34-yr-old male presents for a follow up of his in-lab psg. PSG c/w AHI-26, and oxygen nadirs to 79%. trialed him at 4-10cm, breathing and o2 stabilized at 7-10cm. Start cpap therapy at [id number]. He recently started using Zepbound 7.5mg subq once a week and notices he has lost 6lbs, his A1c has improved and blood sugars normalizing. Pt underwent Maxillary antrostomy with endoscopic?r. anterior ethmoidectomy, septoplasty, and bilateral inferior turbinate reduction by Dr Villanueva at [facility] on 02/06/25. Patient denies any postop complications and is followed by ENT. Since the maxillary procedeure, patient states that he has sleeping better and is still snoring. His blood pressure is elevated today to 140/90.He states his daytime energy level has improved since starting cpap use. Now as long as he is able to sleep for a sufficient amount of time-which can vary based on his work schedule. 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 He has 3-4 arousals at night due to gasping for air. His memory, mood and diet are stable. He denies RLS symptoms. [facility] Surgical History H/O endoscopy Family History Father Diabetes High blood cholesterol Sleep apnea Mother Thyroid disease Diabetes High blood cholesterol Sister Asthma Social History Alcohol intake: former Patient Tobacco Use Status: Never used Tobacco Physical Exam Vital Signs: Last Vital Signs Pulse 61 07/24/25 13:42 BP 140/90 H 07/24/25 13:42 Pulse Ox 99 07/24/25 13:42 Oxygen Delivery Method Room Air 07/24/25 13:42 BMI result Body Mass Index 33.6 cooperative young man Const General: cooperative, comfortable and no acute distress Nutritional Appearance: overweight Orientation/consciousness: patient oriented x3 Limitations: language barrier HEENT Face and sinus: Yes face symmetric Teeth and gingiva: other (mallamtpi score is 3) Eyes Pupils: Equal, round and reactive pupils present Neck Neck: Yes full ROM Resp Effort & Inspection: normal respiratory effort and able to speak in complete sentences Neuro General: patient oriented x3 and moves all extremities Cranial nerves: Yes CN's II-XII intact bilaterally, Yes Facial sensation intact/muscles of mastication intact, Yes Equal, round and reactive pupils present, Yes Normal accommodation reflex present, Yes Normal facial strength present, Yes Ability to bilaterally rotate head present and Yes Ability to bilaterally elevate shoulders present Cognition (Neuro): normal cognition Gait exam (Neuro): Normal gait present and Antalgic gait present Motor exam (neuro): 5/5 motor strength present throughout, no tremor noted and Normal motor muscle tone present throughout Psych Appearance: grossly normal Mental Status: mental status grossly normal Speech and movement: Normal speech and movement present Attitude: cooperative Thought content: Normal thought content present Insight: Good insight present (Psych) Results Reviewed Results Reviewed: PSG c/w AHI-26, and oxygen nadirs to 79%. trialed him at 4-10cm, breathing and o2 stabilized at 7-10cm. Start cpap therapy at 54oiI35. Assessment & Plan Assessment & Plan (1) Mild obstructive sleep apnea: Code(s): G47.33 - Obstructive sleep apnea (adult) (pediatric) Category: Medical (2) Obesity (BMI 30.0-34.9): Code(s): E66.811 - Obesity, class 1 Category: Medical (3) S/P nasal surgery: Comment: 02/06/2025, Maxillary antrostomy with removal disease, Maxillary antrostomy with removal disease, Endoscopic?right anterior ethmoidectomy, septoplasty, Bilateral inferior turbinate reduction. Code(s): Z98.890 - Other specified postprocedural states Category: Surgical Plan HST results- mild MICHAEL w/ mild degree of nocturnal hypoxemia- may have under estimated degree of sleep apnea as patient sleeps with head elevated at home. rx for cpap and nasal mask is written We will request PSG study to assess status of sleep apnea following maxillary antrostomy with surgical turbinate reduction. obesity / weight he is following up with his PCP regarding weight management. F/u in 3 months Orders: Orders RT PSG in-lab sleep study Today E66.811 - Obesity, class 1, G47.19 - Other hypersomnia, G47.33 - Obstructive sleep apnea (adult) (pediatric) Patient Instructions: Sleep Hygiene provided: set a scheduled bedtime and wake time to help regulate the circadian rhythm and balance the release of pituitary hormones. Sleep in a dark room, temperatures below 68 degrees, and no devices n bed. Limit caffeinated products 6 hours prior to bed, and limit fluids 2-4 hours prior to bed. Gentle night yoga, diffusing essential oils, and playing soft music can be relaxing. Coding Level of Care Code Est Pt Level 4 (29147) Diagnoses Mild obstructive sleep apnea G47.33 Obesity (BMI 30.0-34.9) E66.811 S/P nasal surgery Z98.890
--- OUTSIDE RECORDS SUMMARY | 2025-07-24 17:21 | XMS_ITS | Data Portability ---
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 I recommend initiating speech therapy to address vocal cord tension and improve voice quality. There is no evidence of papilloma recurrence. I will order speech therapy, and the patient will be contacted for scheduling. Follow-up is planned for July to reassess progress and monitor for any changes. 30 degree endoscopy shows no recurrent papilloma [email or web address] Not available 05/16/2025 15:43:15 Plan of Treatment Reminders Order Date Submit Date Provider Last Modified By Organization Details Last Modified Time Details Appointments Establi shed 30 2024 03:00P M STEFAN RECINOS MD Not available Not available Not available Lab None recorde d. Referral speech therapy referra l 2024 025 [facility], [address] [facility], 1st Floor, [place], [address], 05/18/2025 11:03:36 Procedures None recorde d. Surgeries endosco py, nasal/s inus, surgica l, with biopsy, polypec angelina or debride ment (SURG) 2024 025 [email or web address] Not available 01/03/2025 09:22:04 endosco py, nasal/s inus, w/ maxilla ry antrost karen & tissue removal (SURG) 2024 025 [email or web address] Not available 01/03/2025 09:22:16 endosco py, nasal/s inus w/ partial ethmoid ectomy (SURG) 2024 025 [email or web address] Not available 01/03/2025 09:22:30 septopl asty and turbina te reducti on (SURG) 2024 025 [email or web address] Not available 01/03/2025 09:22:43 Imaging None recorde d. Medication Orders omepraz ole 40 mg capsule ,delaye d release 2024 025 [facility] #[id number], [address] [place], [address], 03/19/2025 16:01:19 Patient TargetsNo targets recorded. Patient Instructions Encounter Date Encounter Id Patient Instructions Last Modified By Organization Details Last Modified Time 05/16/2025 [id number] Schedule and attend speech therapy sessions. Return for follow-up in July. [email or web address] Not available 05/16/2025 15:41:13 Please note: Parts of this encounter note have been generated by AI based on audio conversation. Patient consent was required prior to utilizing this technology. Content review was required prior to finalizing the note. [email or web address] Not available 05/16/2025 15:41:13 Reason for Referral Referring Physician: Stefan fong, Otolaryngology, Encounter Date: 05/16/2025 Results Created Date Observation Date Name Description Value Unit Range Abnormal Flag Note LastModifiedBy Organization Detail LastModifiedTime 02/14/20 25 02/06/2025 clini cyndi photo * No observ ation record ed. [email or web address] Not Available 01/26 09:06:58 02/14/20 25 02/06/2025 clini cyndi photo * No observ ation record ed. [email or web address] Not Available 01/26 09:08:15 Result Notes None recorded. Problems Name Problem SNOMED Code Status Onset Date Resolution Date Notes Provider Name and Address Organization Details Recorded Time Dysphonia 20458588 Active 2023 Hoarsenes s; Note: Date Diagnosed : 01/19/2024 2:29 PM (R49.0) Not Available [facility] 03:19:00 Gastroeso phageal reflux disease without esophagit is 730087032 Active 2023 Gastro-es ophageal reflux disease without esophagit is; Note: Date Diagnosed : 01/19/2024 2:29 PM (K21.9) Not Available [facility] 4 03:19:00 Allergic rhinitis 83022399 Active 2023 Allergic rhinitis: Due to other allergen; Note: Date Diagnosed : 02/07/2024 11:06 AM (477.8) Not Available [facility] 4 03:19:00 Polyp of nasal cavity 612818454 Active 2023 STEFAN HARVEY MD [address] [facility] [facility], [place], [address] , [facility] 4 15:32:25 Chronic hoarsenes s 56673933748 05 Active 2023 MD Dixie TRAN [facility],GANESH [facility], [place], [address] , [facility] - [facility] 5 16:06:55 Deviated nasal septum 738410823 Active 2024 STEFAN HARVEY MD [address] [facility],GANESH [facility], [place], [address] , [facility] - [facility] 5 12:04:00 Benign inverted papilloma 44433934304 9103 Active 2024 STEFAN HARVEY MD [address] [facility],[address], [place], [address] , [facility] - [facility] 5 16:05:03 Chronic sinusitis 30734575 Active 2024 STEFAN HARVEY MD [address] [facility],[address], [place], [address] , [facility] - [facility] 5 16:05:20 Gastroeso phageal reflux disease 528396235 Active 2024 MD Dixie TRAN [facility],GANESH [facility], [place], [address] , [place] [facility] 16:00:14 Benign neoplasm of accessory sinus 66340946 Active 2024 STEFAN HARVEY MD [address] [facility],[place] [address], [facility] [place], [address] , [place] [facility] 16:18:32 Neoplasti c disease 56721746 Active 2024 STEFAN HARVEY MD [address] [facility],[address] [facility], [facility] [place], [address] , [place] [facility] 16:18:39 Problem Notes None recorded. Procedures Surgical History Date Name Laterality Status Provider Name and Address Organization Details Recorded Time 05/16/20 25 JMSNasal/Sinus Endoscopy-PRIOR surgical cavities completed STEFAN VILLA MD [address] [facility],[address], [address], [place] [facility] 05/16/2025 15:42:39 05/16/20 25 Fiberoptic Laryngoscopy (Comprehensive) completed STEFAN VILLA MD [address] [facility],[address], [address], [place] [facility] 05/16/2025 15:42:32 03/19/20 25 JMSNasal/Sinus Endoscopy-PRIOR surgical cavities completed STEFAN VILLA MD [address] [facility],[address], [address], [place] [facility] 03/19/2025 15:56:27 03/19/20 25 Fiberoptic Laryngoscopy (Comprehensive) completed STEFAN VILLA MD [address] [facility],GAN[address] [place] [address], [address], [place] [facility] 03/19/2025 16:18:21 02/22/20 25 JMSNasal/Sinus Endoscopy-DEBRIDE MENT completed STEFAN VILLA MD [address] [facility],GAN[address] [place] [address], [address], [place] [facility] 02/21/2025 16:04:51 02/10/20 25 JMSNasal/Sinus Endoscopy-DEBRIDE MENT completed GENEVIEVE HA PA-C [address], [place], [address], [facility] - [facility] 02/09/2025 09:55:35 02/07/20 25 nasal septoplasty completed STEFAN VILLA MD [address],GAN[address] [place] [address], [address], [facility] 02/06/2025 16:46:28 02/07/20 25 nasal endoscopy with maxillary antrostomy completed STEFAN VILLA MD [address], [place], [address], [facility] - [facility] 02/06/2025 16:46:36 02/07/20 25 nasal endoscopy with partial ethmoidectomy completed STEFAN VILLA MD [address] [facility] [address] [place] [address], [address], [facility] 02/06/2025 16:46:43 12/29/19 25 Nasal Endoscopy completed STEFAN VILLA MD [address],GAN[address] [facility], [place], [address], [facility] - [facility] 12/28/2024 12:03:55 submucous resection of nasal turbinate completed STEFAN VILLA MD [address] [facility] [address] [place] [address], [address], [facility] - [facility] 02/06/2025 16:46:49 Imaging Results None recorded. [...] mg tablet 02/09 completed Medicati on ID: [id number] rand Name: famotidi ne Send Method: [...] 40 mg capsule,d elayed release TOME 1 CAPSULA POR VIA ORAL TODOS LOS MEJÍA 2024 active Not Available Not Available Not Avai lable acetamino phen 500 mg tablet TOME DOS [...] TOPICALL Y IF NEEDED FOR DRY SKIN. active Not Available Not Available No t Available ibuprofen 600 mg tablet TAKE 1 [...] USE TO CHECK BLOOD PRESSURE TWICE DAILY 05/16 completed Not Available Not Available Not Available Gavilax 17 gram/dose oral powder TAKE 17 GRAMS BY MOUTH IF NEEDED EACH DAY FOR CONSTIPA TION FOR UP TO 3 DAYS. active Not Available Not Available No t Available Zepbound 5 mg/0.5 mL subcutane ous pen injector INJECT 0.5 ML (5 MG) UNDER THE SKIN 1 (ONE) TIME PER WEEK. INCREASE DOSE EVERY MONNTH active Not Available Not Available No t Available Zepbound 2.5 mg/0.5 mL subcutane ous pen injector INJECT 1 PEN SUBCUTAN EOUSLY ONCE WEEKLY 05/16 completed Not Available Not Available Not Available Vitals Date Recorded Body height Body mass index (BMI) Body weight Provider Name and Address Organization Details Last Updated DateTime 12/28/2024 177.8 cm 28.7 kg/m2 84130.47 g Ann Du [facility] 12/28/2024 10:55:36 Date Recorded Body height Body mass index (BMI) Body weight Provider Name and Address Organization Details Last Updated DateTime 02/09/2025 177.8 cm 34.4 kg/m2 726339.17 g Kallie Dwayneasad [facility] 02/09/2025 09:36:23 Date Recorded Body height Body mass index (BMI) Body weight Provider Name and Address Organization Details Last Updated DateTime 03/19/2025 177.8 cm 35.2 kg/m2 686591.13 g Kallie Dalia [facility] 03/19/2025 15:36:51 Social History None recorded. Functional Status None recorded. Mental Status None recorded. Family History Nothing Reported. Medical History Condition Response Hypertension Y GERD/Reflux Y Past Encounters Encounter ID Performer Location Encounter Start Date Encounter Closed Date Diagnosis/Indication Diagnosis SNOMED-CT Code Diagnosis ICD10 Code Diagnosis IMO Codes Diagnosis Note [id number] STEFAN HARVEY MD [facility] [address] [address] 03/10/2024 08:29:32 03/10/2024 09:05:57 Polyp of nasal cavity 009205479 J33.0 CT pending. Allergy minimal CT end of the month. Brochure given re sinus surgery Chronic hoarseness 00929 51403 105 R49.0 waiting for speech therapy. Working with PCP on GERD management [id number] STEFAN HRAVEY MD [facility] [address] [address] 12/28/2024 10:32:28 12/28/2024 12:13:10 Allergic rhinitis 59961533 J30.9 Polyp of nasal cavity 73 4954033 J33.0 The risks and benefits of endoscopic [...] the near future. Deviated nasal septum 12 8983024 J34.2 [id number] GENEVIEVE HA PA-C [facility] [address] [address] 02/09/2025 09:29:02 02/09/2025 09:55:45 Deviated nasal septum 807012009 J34.2 Polyp of nasal cavity 73 2076738 J33.0 [id number] STEFAN HARVEY MD [facility] [address] [address] 02/21/2025 15:30:36 02/22/2025 13:17:17 Benign inverted papilloma 8598513527 52804 D36.9 2889241109 Chronic sinusitis 865458 00 J32.8 88670 Needs aggressive saline irrigation s twice daily Chronic hoarseness 65164 16080 105 R49.0 3905637 FOL next visit [id number] STEFAN HARVEY MD [facility] [address] [address] 03/19/2025 15:12:55 03/19/2025 16:05:13 Gastroesophageal reflux disease 251382525 K21.9 95518139 Benign elvira plasm of accessory sinus 91022644 D14.0 00324949 No evidence of persistent or recurrent inverted papilloma at the present time. There is a small amount of swelling along the inferior aspect of the maxillary ostium. We discussed possibly proceeding with medial maxillecto my. He wants to see how things go over the next couple of months. Chronic hoarseness 57550 88567 105 R49.0 5086785 FOL next visit [id number] STEFAN HARVEY MD [facility] [address] [address] 05/16/2025 15:10:42 05/16/2025 15:42:34 Gastroesophageal reflux disease 797134764 K21.9 84062062 Benign elvira plasm of accessory sinus 22264345 D14.0 73135087 No evidence of persistent or recurrent inverted papilloma at the present time. Chronic hoarseness 76093 85810 105 R49.0 6508428 Health Concerns Section Related Observation LastModified by Organization Detai ls LastModified Time None Recorded Concern Status LastModified by Organization Details LastModified Time None Recorded Advance Directives Directive None Recorded Payers Insurance Date Sequence Insurance Name Policy Number Policy Orozco Covered Member ID Orozco Member ID Guarantor Name 05/16/2025 1 MEDICAID-[place]: [facility] Gregory Huston [id number] Gregory Huston Notes Date Note Type Note Provider Name and Address Organization Details Recorded Time 12/28/2024 text/html ROS as noted in the HPI 34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 Congestion is bilateral. He reports associated right sided facial pain. Denies nasal drainage or anosmia. CT maxillofacial 03/16/2024 demonstrated obstructive right antrochoanal polyp with completely opacified right maxillary sinus. [place] which delayed follow-up STEFAN VILLA MD [address] [place] [address],[address], [address], [place] [facility] 12/28/2024 12:52:23 02/09/2025 text/html ROS as noted in the HPI 34yo male presents following presents following septo, turb, and right FESS with polypectomy on 02/06/[address] Villa. Pathology is not available for review in chart. Patient irrigates with saline daily. Denies nasal bleeding. Pain is improving. He manages pain with tylenol. STEFAN VILLA MD [address] [facility],[address], [address], [place] [facility] 02/09/2025 10:38:43 03/19/2025 text/html Hx of right inverted papilloma. Chronic hoarseness feels worse lately. More GERD recently.Famotidin e not controlling sx STEFAN VILLA MD [address] [facility],[address], [address], [place] [facility] 03/19/2025 16:20:21 05/16/2025 text/html Gregory Huston is a 34-year-old male who presents for follow-up evaluation of a papilloma. He reports no breathing difficulties, bleeding, or nasal obstruction. He has a history of chronic vocal cord swelling and hyperfunction, with lifelong hoarseness. He notes that his voice has recently worsened, sounding more broken and less clear than usual. STEFAN VILLA MD [address] [place] [address], [address], [facility] 05/16/2025 17:07:46
--- OUTSIDE RECORDS SUMMARY | 2025-07-24 17:21 | XMS_ITS | Clinical Summary ---
Author Organization [facility]ice Re[facility] ity Address [address] [place] [address] Care Team Providers Care Drying Tumbler Operator Name Role Phone Unavailable Primary Care [...] of 3 - 19+ 3-dose series) 2011 HPV Vaccines (1 - 3-dose SCD M series) 2019 HIV Screening 07/05/2024 Hepatitis C Screening 07/05/2024 Social Influencers of Health Screening 07/05/2024 Depression Screening 09/27/2024 COVID-19 Vaccine ( - 2023-2 5 season) 2025 Influenza Vaccine (#1) 2025 RSV Immunization Adult Patie nts (1 - 1-dose 75+ series) 2067 HIB Vaccines Aged Out No longer eligi [...]
== END 2025-07-24 14:16 | disposition home or self-care (01) ==
LOC: HO.HSMS 13:27
PROVIDERS: PCP Student in an Organized Health Care Education/Training Program; Visit Provider Physician Assistant Medical
DX: G47.33 Obstructive sleep apnea (adult) (pediatric) (principal); E66.811 Obesity, class 1; Z98.890 Other specified postprocedural states
CPT/HCPCS: 99214

== ENCOUNTER → 2025-07-24 13:26 | Outpatient (BNVA) | payer MEDICAID, SELFPAY | PROVIDERS: PCP Student in an Organized Health Care Education/Training Program; Visit Provider Physician Assistant Medical | DX: G47.33 Obstructive sleep apnea (adult) (pediatric) (principal); G47.26 Circadian rhythm sleep disorder, shift work type; E66.811 Obesity, class 1; Z68.33 Body mass index [BMI] 33.0-33.9, adult; Z98.890 Other specified postprocedural states | CPT/HCPCS: 99212 ==

== ENCOUNTER 2025-08-21 13:23 | Outpatient (REF) | payer MEDICAID, SELFPAY ==
--- NOTE | ~2025-08-21 | XR_ITS ---
EXAMINATION: XR ELBOW, LEFT CLINICAL INFORMATION: chornic medial left elbow pain COMPARISON: None available. TECHNIQUE: 4 images of the left elbow. FINDINGS: The bones and soft tissues are normal. No fracture or joint effusion. Alignment is anatomic. Joint spaces are maintained. The medial epicondyle appears normal. XR/XR elbow LT min 3V IMPRESSION: Normal left elbow. Electronically signed by: Vernon Herrera MD 08/21/2025 01:45 PM EST
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
--- OUTSIDE RECORDS SUMMARY | 2025-08-21 17:15 | XMS_ITS | Encounter Summary ---
Author Organization [employer] Address [address] [facility] 7t [place] [address] Care Team Providers Care Fire Supervisor Name Role Phone Esther Hoang MD Primary Care Pro vider Encounter Details Date Type Department Care Team (Latest Contact Info) Description 08/21/2025 Travel Social History Tobacco Use Types Packs/Day Years [...] Description 10/18/2025 10:45 AM EST Office Visit [facility] [address] [place] [phone] Esther Hoang MD [address] [place] [phone] documented as of this encounter Visit Diagnoses Not on filedocumented in this encounter Additional Health Concerns Assessment Noted Time PHQ-9 Depression Total Score: 0 04/17/20 25 2:49 PM EDT documented as of this encounter Care Teams Fire Supervisor Relationship Specialty Start Date End Date Esther Hoang MD [address] [place] [phone] PCP - General Internal Medicine 09/15/23 documented as of this encounter
--- OUTSIDE RECORDS SUMMARY | 2025-08-21 17:15 | XMS_ITS | Encounter Summary ---
Author Organization [employer] Address [address] [place] [address] 7 [place] [address] Care Team Providers Care Child Care Specialist Name Role Phone Esther Hoang MD Primary Care Pro vider Reason for Visit * Reason Comments Med Refill Encounter Details Date Type Department Care Team (Late st Contact Info) Description 10/26/2024 Refill [facility] [address] [place] [address] Esther Hoang MD [address] [place] [address] Social History Tobacco Use Types Packs/Day Years [...] with others, in a hotel, in a group home, living outside on the street, on a [...] Description 10/18/2025 10:45 AM EST Office Visit [facility] [address] [place] [phone] Esther Hoang MD [address] [place] [phone] documented as of this encounter Visit Diagnoses Not on filedocumented in this encounter Additional Health Concerns Assessment Noted Time PHQ-9 Depression Total Score: 9 08/31/20 24 10:16 AM EST documented as of this encounter Care Teams Child Care Specialist Relationship Specialty Start Date End Date Esther Hoang MD [address] [place] [phone] PCP - General Internal Medicine 09/15/23 documented as of this encounter
--- OUTSIDE RECORDS SUMMARY | 2025-08-21 17:15 | XMS_ITS | Encounter Summary ---
Author Organization [employer] Address [address] 7t [place] [address] Care Team Providers Care Store Host Name Role Phone Esther Hoang MD Primary Care Pro vider Encounter Details Date Type Department Care Team (Late st Contact Info) Description 08/21/2025 Results Follow-Up [facility] [address] [place] [phone] Whitney Villalta MD [address] [place] [phone] XR Elbow 3+ Views Left Social History Tobacco Use Types Packs/Day Years [...] encounter Miscellaneous Notes * Telephone Encounter - Lakisha Patterson - 08/21/2025 4:25 PM EST Normal lab test letter sent on 08/21/2025. documented in this encounter Plan of Treatment Upcoming Encounters Date Type Department Care Team (Late st Contact Info) Description 10/18/2025 10:45 AM EST Office Visit [facility] [address] [place] [phone] Esther Hoang MD [address] [place] [phone] documented as of this encounter Visit Diagnoses Not on filedocumented in this encounter Additional Health Concerns Assessment Noted Time PHQ-9 Depression Total Score: 0 04/17/20 2:49 PM EDT documented as of this encounter Care Teams Store Host Relationship Specialty Start Date End Date Esther Hoang MD [address] [place] [phone] PCP - General Internal Medicine 09/15/23 documented as of this encounter
--- OUTSIDE RECORDS SUMMARY | 2025-08-21 17:15 | XMS_ITS | Encounter Summary ---
Author Organization [employer] Address [address] [facility] 7 [place] [address] Care Team Providers Care Ibm Mainframe Developer Name Role Phone Esther Hoang MD Primary Care Pro vider Reason for Visit * Reason Comments Med Refill Encounter Details Date Type Department Care Team (Late st Contact Info) Description 04/19/2025 Refill [facility] [address] [place] [address] Esther Hoang MD [address] [place] [address] Class 1 obesity due to excess calories without serious comorbidity with body mass index (BMI) of 31.0 to 31.9 in adult; MICHAEL (obstructive sleep apnea); Hypertension, unspecified type Social History Tobacco Use Types Packs/Day Years [...] the past 12 months, has t he [employer], gas, oil or water company threatened [...] Description 10/18/2025 10:45 AM EST Office Visit [facility] [address] [place] [phone] Esther Hoang MD [address] [place] [phone] documented as of this encounter Visit Diagnoses Diagnosis Class 1 obesity due to excess calories without serious comorbidity with body mass index (BMI) of 31.0 to 31.9 in adult MICHAEL (obstructive sleep apnea) Obstructive sleep apnea (adult) (pediatric) Hypertension, unspecified type documented in this encounter Additional Health Concerns Assessment Noted Time PHQ-9 Depression Total Score: 0 04/17/20 25 2:49 PM EDT documented as of this encounter Care Teams Ibm Mainframe Developer Relationship Specialty Start Date End Date Esther Hoang MD [address] [place] [address] [phone] PCP - General Internal Medicine 09/15/23 documented as of this encounter
--- OUTSIDE RECORDS SUMMARY | 2025-08-21 17:15 | XMS_ITS | Encounter Summary ---
Author Organization [employer] Address [address] [place] [address] 7 [place] [address] Care Team Providers Care Agricultural Service Worker Name Role Phone Esther Hoang MD Primary Care Pro vider Reason for Visit * Reason Comments Med Refill Encounter Details Date Type Department Care Team (Late st Contact Info) Description 04/20/2025 Refill [facility] [address] [place] [address] Esther Hoang MD [address] [place] [address] Class 1 obesity due to excess calories [...] the past 12 months, has t he [employer], gas, oil or water company threatened to [...] Description 10/18/2025 10:45 AM EST Office Visit [facility] [address] [place] [phone] Esther Hoang MD [address] [place] [phone] documented as of this encounter Visit Diagnoses [...] documented as of this encounter Care Teams Agricultural Service Worker Relationship Specialty Start Date End Date Esther Hoang MD [address] [place] [address] [phone] PCP - General Internal Medicine 09/15/23 documented as of this encounter
--- OUTSIDE RECORDS SUMMARY | 2025-08-21 17:15 | XMS_ITS | Encounter Summary ---
Author Organization [employer] Address [address] [place] [address] 7 [place] [address] Care Team Providers Care Firer Powerhouse Name Role Phone Esther Hoang MD Primary Care Pro vider Reason for Visit * Reason Onset Date Comments Med Refill 10/21/2023 Encounter Details Date Type Department Care Team (Late st Contact Info) Description 10/21/2023 Telephone [facility] [address] [place] [address] [phone] Esther Hoang MD [address] [place] [address] Med Refill Social History Tobacco Use Types [...] with others, in a hotel, in a senior care, living outside on the street, on a [...] the past 12 months, has t he [employer], gas, oil or water company threatened to [...] 40 MG tablet To be sent to: [facility] - [place], [place] - [address] [place] [address] documented in this encounter Plan of Treatment Upcoming Encounters Date Type Department Care Team ([facility] st Contact Info) Description 10/18/2025 10:45 AM EST Office Visit [facility] [address] [place], [place] [phone] Esther Hoang MD [address] [place], [place] [phone] documented as of this encounter Visit Diagnoses Not on filedocumented in this encounter Additional Health Concerns Assessment Noted Time PHQ-9 Depression Total Score: 16 023 11:04 AM EST documented as of this encounter Care Teams Firer Powerhouse Relationship Specialty Start Date End Date Esther Hoang MD [address] [place] [address] PCP - General Internal Medicine 09/15/23 documented as of this encounter
--- OUTSIDE RECORDS SUMMARY | 2025-08-21 17:15 | XMS_ITS | Encounter Summary ---
Author Organization [employer] Address [address] [place] [address] 7 [place] [address] Care Team Providers Care Mental Health Advanced Practice Nurse Name Role Phone Esther Hoang MD Primary Care Pro vider Reason for Visit * Reason Onset Date Comments Medication Question 08/07/2025 Encounter Details Date Type Department Care Team ([facility] st Contact Info) Description 08/07/2025 Telephone [facility] [address] [place], [place] [phone] Esther Hoang MD [address] [place] [address] Medication Question Social History Tobacco Use Types Packs/Day Years [...] encounter Miscellaneous Notes * Telephone Encounter - Olive Saleem RN - 08/07/2025 11:25 AM EST Telephone call returned to pt to clarify below request. Pt reports that when he saw PCP 07/20/25 they discussed that pt was received Rx for omeprazole from ENT until he saw PCP as ENT was expecting PCP to take over that script. He states PCP had said she was going to send refill but pharmacy hasn'treceived it. Pt informed PCP out of office but will send to covering provider. Pt takes omeprazole 40mg daily in AM. The patient is inquiring on the status of a prescription for Omeprazole 40 mg, [facility] [place]. He may be reached at [phone]. documented in this encounter Plan of Treatment Upcoming Encounters Date Type Department Care Team (Late st Contact Info) Description 10/18/2025 10:45 AM EST Office Visit [facility] [address] [place] [phone] Esther Hoang MD [address] [place] [address] documented as of this encounter Visit Diagnoses Not on filedocumented in this encounter Additional Health Concerns Assessment Noted Time PHQ-9 Depression Total Score: 0 04/17/20 25 2:49 PM EDT documented as of this encounter Care Teams Mental Health Advanced Practice Nurse Relationship Specialty Start Date End Date Esther Hoang MD [address] [place] [phone] PCP - General Internal Medicine 09/15/23 documented as of this encounter
--- OUTSIDE RECORDS SUMMARY | 2025-08-21 17:16 | XMS_ITS | Encounter Summary ---
Author Organization [employer] Address [address] [facility] 7 [place] [address] Care Team Providers Care Kieselguhr Regenerator Operator Name Role Phone Esther Hoang MD Primary Care Pro vider Encounter Details Date Type Department Care Team (Late st Contact Info) Description 05/10/2025 Orders Only [facility] [address] [place] [address] Esther Hoang MD [address] [place] [address] Social History Tobacco Use Types Packs/Day Years [...] Description 10/18/2025 10:45 AM EST Office Visit [facility] [address] [place] [phone] Esther Hoang MD [address] [place] [address] [phone] documented as of this encounter Visit Diagnoses Not on filedocumented in this encounter Additional Health Concerns Assessment Noted Time PHQ-9 Depression Total Score: 0 04/17/20 25 2:49 PM EDT documented as of this encounter Care Teams Kieselguhr Regenerator Operator Relationship Specialty Start Date End Date Esther Hoang MD [address] [place] [phone] PCP - General Internal Medicine 09/15/23 documented as of this encounter
--- OUTSIDE RECORDS SUMMARY | 2025-08-21 17:16 | XMS_ITS | Encounter Summary ---
Author Organization [employer] Address [address] [place] [address] 7 [place] [address] Care Team Providers Care Java Lead Engineer Name Role Phone Esther Hoang MD Primary Care Pro vider Reason for Visit * Reason Onset Date Comments Med Refill 01/01/2025 Encounter Details Date Type Department Care Team (Late st Contact Info) Description 01/01/[address] [facility] [address] [place], [place] [phone] Esther Hoang MD [address] [place] [address] Med Refill Social History Tobacco Use Types [...] with others, in a hotel, in a longterm, living outside on the street, on a [...] 100-25 MG tablet To be sent to: [id number] [place], [place] - [address] [place] [address] documented in this encounter Plan of Treatment Upcoming Encounters Date Type Department Care Team ([facility] st Contact Info) Description 10/18/2025 10:45 AM EST Office Visit [facility] [address] [place] [address] Esther Hoang MD [address] [place] [address] documented as of this encounter Visit Diagnoses Not on filedocumented in this encounter Additional Health Concerns Assessment Noted Time PHQ-9 Depression Total Score: 9 08/31/20 10:16 AM EST documented as of this encounter Care Teams Java Lead Engineer Relationship Specialty Start Date End Date Esther Hoang MD [address] [place] [address] PCP - General Internal Medicine 09/15/23 documented as of this encounter
--- OUTSIDE RECORDS SUMMARY | 2025-08-21 17:16 | XMS_ITS | Encounter Summary ---
Author Organization [employer] Address [address] [place] [address] [address] [place] [address] Care Team Providers Care [employer] Agent Name Role Phone Esther Hoang MD Primary Care Pro vider Reason for Visit * Reason Onset Date Comments New Patient 06/30/2023 Encounter Details Date Type Department Care Team (Late st Contact Info) Description 06/30/2023 Telephone [facility] [address] [place], [place] [phone] Dixon Ortiz MD [address] [place] [address] New Patient Social History Tobacco Use Types [...] PAR Cecille Alvarez called pt to Offer CIGARETTE PAPER TESTER appt. Pt demographics and insurance information were verified. Pt states following medical conditions: HTN, [employer] health conditions that would like to discuss with pcp. Pt reports taking medications: Yes, does not have any medications, gag writer suggested walk in until day of appt. Pt given CIGARETTE PAPER TESTER appt with Dr. Mcdonald on 09/15/2023 @ 9:15 am. Pt will be sent appt reminder card and medical release form and agrees to complete and to return to medical records prior to CIGARETTE PAPER TESTER appt. * Telephone Encounter - Cecille Neal - 06/30/2023 3:10 PM EDT Pt has been transfer over to wait list for CIGARETTE PAPER TESTER. EFFECTIVE SINCE 06/30/2023 documented in this encounter Plan of Treatment Upcoming Encounters Date Type Department Care Team (Late st Contact Info) Description 10/18/2025 10:45 AM EST Office Visit [facility] [address] [place] [address] [phone] Esther Hoang MD [address] [place] [phone] documented as of this encounter Visit Diagnoses Not on filedocumented in this encounter Care Teams [employer] Agent Relationship Specialty Start Date End Date Esther Hoang MD [address] [place] [phone] PCP - General Internal Medicine 09/15/23 documented as of this encounter
--- OUTSIDE RECORDS SUMMARY | 2025-08-21 17:16 | XMS_ITS | Clinical Summary ---
Author Organization [employer] Address [address] [facility] [address] [place] [address] Care Team Providers Care Bilingual Office Assistant Name Role Phone Esther Hoang MD Primary Care Pro vider Allergies No known active allergies Medications * This document contains information received from the source organization and may not represent a complete record from that organization. docusate sodium (Colace) 100 MG capsule Take 1 capsule (100 mg) by mouth 2 times daily. 180 capsule 3 5 04/05/20 26 Active polycarbophil (Fibercon) 625 MG tablet Take 1 tablet (625 mg) by mouth 2 times daily. 180 tablet 3 5 04/05/20 26 Active ammonium lactate (Amlactin) 12 % cream APPLY TOPICALLY IF NEEDED FOR DRY SKIN. 140 g 5 05/02/20 26 Active amLODIPine (Norvasc) 5 MG tablet TAKE 1 TABLET BY MOUTH TWICE A DAY 180 tablet 5 Active omeprazole (PriLOSEC) [address] capsule TOME 1 CAPSULA POR VIA ORAL TODOS LOS MEJÍA 5 Active topiramate (Topamax) 50 MG tablet Take 1 tablet (50 mg) by mouth Once per day. 60 tablet 1 5 Active metoprolol succinate XL (Toprol-XL) 100 MG 24 hr tablet TAKE 1 TABLET BY MOUTH EVERY MORNING. DO NOT BREAK, CRUSH, DISSOLVE OR CHEW 90 tablet 1 5 Active losartan-hydroC HLOROthiazide (Hyzaar) 100-25 MG tablet TAKE 1 TABLET BY MOUTH EVERY MORNNING 90 tablet 5 Active naproxen (Naprosyn) 500 MG tabletIndicatio ns:Epicondyliti s elbow, medial, left Take 1 tablet by oral route twice daily as needed for moderate pain 30 tablet 1 5 Active sodium chloride ([place]) 0.65 % nasal sprayIndication s:Nasal congestion Administer 1 spray into each nostril if needed for congestion. 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 Advised to check BP at home 3 times per week, lower calorie and sodium intake and increase physical exercise Assessment & Plan (08/01/2023 10:54 AM EST): -refilled BP meds today -pt has a f up apt w me to start care as new pt on 09/15/2023 -will need to eval at next apt if may need secondary HTN workup if uncontrolled on current tx and dxed at early age-denies to have workup for it GERD (gastroesophageal reflux disease) 3 Assessment & Plan (08/01/2023 10:55 AM EST): Pt w chronic GERD/gastritis on PPIs -stop today PPIs and start famotidine prn -diet changes advised -at next apt w me will do h pylori UBT off PPIs Resolved Problems Problem Noted Date Diagnosed Date Resolved Date Skin pruritus 02/08/2025 04/18/2025 Skin rash 08/17/2024 08/31/2024 Assessment & Plan [...] Folliculitis 03/03/2024 04/19/2024 Tinea pedis 03/03/2024 04/19/2024 Swelling of lower extremity 09/17/2023 07/20/2025 Post-traumatic stress disorder, unspecified 09/15/2023 02/08/2025 Assessment & Plan (12/08/2023 11:19 AM EDT): [...] move, and housing. Gregory recently moved from [place] to [place] with his and three kids. Tragic deaths [...] and violence and feeling not safe in [place] . Gregory recently moved [place] with his and three kids. Tragic deaths [...] of violence and feeling not safe in [place]. Gregory recently moved [place] with his and three kids. Tragic deaths [...] out to [facility] as needed. Anxiety 09/15/2023 02/08/2025 Assessment & Plan (12/08/2023 11:19 AM EDT): During [facility]BH Consult Grgeory Dunn presenting with excessive worry/anxiety, difficulty controlling [...] move, and housing. Gregory recently moved from [place] to [place] with his and three kids. Tragic deaths [...] and violence and feeling not safe in [place] . [place] recently [place] with his and three kids. Tragic deaths [...] of violence and feeling not safe in [place]. [place] recently [place] with his and three kids. Tragic deaths [...] to reach out to [facility] as needed. Housing insecurity 09/15/2023 Assessment & Plan (12/08/2023 [...] move, and housing. Gregory recently moved from [place] to [place] with his and three kids. Tragic deaths [...] and violence and feeling not safe in [place] . [place] with his and three kids. Tragic deaths [...] of violence and feeling not safe in [place]. [place] recently [place] with his and three kids. Tragic deaths [...] intervention , Patient to reach out to [facility] team as needed, Comply with medication , Patient to engage in OP therapy , and Patient to reach out to [facility] as needed. Encounters Date Type Department Care Team Description 08/21/2025 1:00 PM EST Office Visit [facility] [address] [address] Whitney Villalta MD Left elbow pain (Primary Dx) 08/21/2025 [facility] [address] [address] Whitney Villalta MD XR Elbow 3+ Views Left 08/21/2025 Travel 08/10/2025 Telephone [facility] [address] [place] [phone] Esther Hoang MD [facility] Cardiology Info 08/07/[address] [phone] Esther Hoang MD Medication Question 08/07/[address] [phone] Esther Hoang MD DME Elbow brace 08/03/2025 10:00 AM EST [facility] [address] [address] [place], [place], [employer] Epicondylitis elbow, medial, left (Primary Dx) 08/03/2025 Travel 07/23/2025 Results Follow-Up [address] [address] Esther Hoang MD Albumin, Random Urine W/Creatinine, CBC auto differential, Comprehensive Metabolic Panel, Additional followed-up results: 10 07/20/2025 1:00 PM EDT Office Visit [address] [address] Esther Hoang MD Health care maintenance (Primary Dx); Palpitations; Uncontrolled hypertension; Hypertension, unspecified type; Dysphonia; Class 1 obesity due to excess calories without serious comorbidity with body mass index (BMI) of 31.0 to 31.9 in adult; MICHAEL (obstructive sleep apnea) 07/20/2025 Telephone [facility] [address] [place] [address] Esther Hoang MD 07/20/2025 Travel 07/19/2025 Telephone [facility] [address] [place] [address] Esther Hoang MD chart prep 07/16/2025 Refill [facility] [address] [place] [address] Esther Hoang MD 07/13/2025 Patient Outreach [facility] [address] [place] [phone] Esther Hoang MD Pre-visit Planning (SDOH screening was completed on 02/07/2025) 07/03/2025 3:00 PM EDT Office Visit [facility] [address] [place] [phone] Jenifer Peck MD Primary hypertension (Primary Dx) 07/03/2025 Travel 06/25/2025 Telephone [facility] [address] [place] [address] Esther Hoang MD Appointment 06/12/2025 Travel 05/24/2025 Refill [facility] [address] [place] [phone] Esther Hoang MD from Last 3 Months Immunizations Immunization Administration Dates Next Due Influenza injectable quadrivalent [...] Mass Index 33.89 08/21/2025 1:06 PM EST Plan of Treatment Upcoming Encounters Date Type Department Care Team (Late st Contact Info) Description 10/18/2025 10:45 AM EST Office Visit [facility] [address] [place], [place] [phone] Esther Hoang MD [address] [place], [place] [phone] Health Maintenance Due Date Last Done Comments Family Planning (PISQ) 2007 HPV Vaccines (1 - Male 3-dos e series) 2007 Hepatitis B Vaccines (1 of 3 - 19+ 3-dose series) 2011 DTaP/Tdap/Td Vaccines (1 - Tdap) 09/16/2023 09/15/2023 COVID-19 Vaccine (1 - 2024-2 6 season) 2025 Influenza Vaccine (#1) 2025 , 09/15/2023 Alcohol/Substance Use Screening 02/07/2026 02/07/2025 SDOH Screening 02/07/2026 02/07/2025 Depression Screening 04/17/2026 04/17/2025, 04/17/2025 Disability Screening 04/17/2026 04/17/2025 Diabetes: Hemoglobin A1C 07/23/202607/23/2 025, 08/31/2024, 09/15/2023 Tobacco Screening 08/21/2026 08/21/2025 Lipid Panel 07/23/2030 07/23/2025, 08/31/2024, 09/15/2023 Zoster Vaccines (1 of 2) 2042 RSV Patients and Patients Aged 60 years or older (1 - 1-dose 75+ series) 2067 HIV Screening Completed 07/23/2025, 08/31/2024, 09/15/2023 Hepatitis C Screening Completed 07/23/2025 , 08/31/2024, 09/15/2023 HIB Vaccines Aged Out No [...] Years) and At-Risk Patients (6 to 49) Years Aged Out No longer eligible b ased [...] 08/21/2025 1:40 PM EST Left elbow pain VITAMIN D,25-OH,TOTAL,IA Routine 07/23/2025 8:15 AM EDT Health care maintenance TSH W/REFLEX TO FT4 Routine 07/23/2025 8:15 AM EDT Health care maintenance SYPHILIS SCREEN Routine 07/23/2025 8:15 AM EDT Health care maintenance LIPID PANEL, STANDARD Routine 07/23/2025 8:15 AM EDT Health care maintenance HIV 1/2 ANTIGEN/ANTIBODY, FOURTH GENERATION W/RFL Routine 07/23/2025 8:15 AM EDT Health care maintenance HEPATITIS C AB W/REFL TO HCV RNA, QN, PCR Routine 07/23/2025 8:15 AM EDT Health care maintenance HEPATITIS B SURFACE ANTIGEN, EIA Routine 07/23/2025 8:15 AM EDT Health care maintenance HEPATITIS B SURFACE ANTIBODY, QUALITATIVE Routine 07/23/2025 8:15 AM EDT Health care maintenance HEPATITIS B CORE AB TOTAL Routine 07/23/2025 8:15 AM EDT Health care maintenance HEMOGLOBIN A1C Routine 07/23/2025 8:15 AM EDT Health care maintenance COMPREHENSIVE METABOLIC PANEL Routine 07/23/2025 8:15 AM EDT Health care maintenance CBC WITH AUTO DIFFERENTIAL Routine 07/23/2025 8:15 AM EDT Health care maintenance ALBUMIN, RANDOM URINE W/CREATININE Routine 07/23/2025 8:15 AM EDT Health care maintenance CHLAMYDIA/TRICHOMONAS /NEISSERIA GONORRHOEAE, PCR, URINE Routine 07/23/2025 8:15 AM EDT Health care maintenance ECG 12-LEAD Routine 07/20/2025 1:56 PM EDT Palpitations ECG 12-LEAD Routine 07/03/2025 4:59 PM EDT Primary hypertension ECG 12-LEAD Routine 07/03/2025 Primary hypertension AMB REFERRAL TO PHYSICAL THERAPY Routine 06/06/2025 Chronic pain of both knees from Last 3 Months Results * XR Elbow 3+ Views Left (08/21/2025 1:40 PM EST) Anatomical Region Laterality Modality Upper Extremities, Elbow Left Radiogr aphic Imaging 08/21/2025 1:40 PM EST Narrative 08/21/2025 1:48 PM EST [address] [address] XRay Report Signed Patient: Gregory Petty MR#: [id number] : 1990 Acct:[id number] Age/Sex: 34 / M ADM Date: 08/21/25 Loc: HO.HHCX Attending Dr: Whitney Villalta MD Ordering Physician: Whitney Villalta MD Date of Service: 08/21/25 Procedure(s): XR elbow LT min 3V Accession Number(s): [id number] cc: Whitney Villalta MD Reason for Exam: [...] 08/21/25 1345 DD/ 1340 TD/TT: 08/21/25 1341 Historical Records Administrator: Procedure Note Donotuseinterpreter, Image - 08/21/[address] [address] XRay Report Signed Patient: Gregory Petty JMR#: [id number] : 1990Acct:[id number] Age/Sex: 34 / MADM Date: 08/21/25 Loc: HO.HHCX Attending Dr: Whitney Villalta MD Ordering Physician: Whitney Villalta MD Date of Service: 08/21/25 Procedure(s): XR elbow LT min 3V Accession Number(s): [id number] cc: Whitney Villalta MD Reason for Exam: [...] 08/21/25 1345 DD/ 1340 TD/TT: 08/21/25 1341 Historical Records Administrator: Whitney Villalta MD IMG XR PROCEDURES Final Re sult * Chlamydia/Trichomonas/Neisseria gonorrhoeae, PCR, Urine (07/23/2025 8:15 AM EDT) CT PCR, Urine NOT DETECTED Not Detect. [facility] Comment:A not detected test result does not exclude the possibilityof infection because test results can be affected byimproper specimen collection, concurrent antibiotic therapy,or the number of organisms in the specimen which may bebelow the sensitivity of the test. As with many diagnostictests, results from the Xpert CT/NG assay should beinterpreted in conjunction with other laboratory andclinical data available to the clinician.The Xpert CT/NG assay should not be used for the evaluationof suspected sexual abuse or for other medico-legalindications. Additional testing is recommended in anycircumstance when false positive or false negative resultscould lead to adverse medical, social or psychologicalconsequences. NG PCR, Urine NOT DETECTED Not Detect. [facility] Comment:A not detected test result does not exclude the possibilityof infection because test results can be affected byimproper specimen collection, concurrent antibiotic therapy,or the number of organisms in the specimen which may bebelow the sensitivity of the test. As with many diagnostictests, results from the Xpert CT/NG assay should beinterpreted in conjunction with other laboratory andclinical data available to the clinician.The Xpert CT/NG assay should not be used for the evaluationof suspected sexual abuse or for other medico-legalindications. Additional testing is recommended in anycircumstance when false positive or false negative resultscould lead to adverse medical, social or psychologicalconsequences. Urine (Urine, Random) 07/23/2025 8:15 AM EDT 07/23/2025 11:16 AM EDT us Esther Keane MD LAB URINE ORDERAB LES Final Result [facility] [address] [place] [phone] * Syphilis Screen (07/23/2025 8:15 AM EDT) Syphilis Screen Nonreactive Nonreactive [facility] Blood 07/23/2025 8:15 AM EDT 07/23/2025 11:32 AM EDT us Esther Keane MD LAB BLOOD ORDERAB LES Final Result Performing Organization Address [facility]/ZIP Co de Phone Number [facility] [address] [place] [phone] * Vitamin D, 25-Hydroxy, Total, Immunoassay (07/23/2025 8:15 AM EDT) Vitamin D 25-OH Total 54.1 >30 ng/mL [facility] Comment: Health Based Reference Values*< 20 ng/mL Circsadnn40-63 ng/mL Insufficient> 30 ng/mL Sufficient*Robert [place]. N Engl J Med. 2007;357:266-280There is no well-established upper level of normal vitamin Dlevels. Some laboratories use 50 ng/mL as an upper limit ofnormal. However, toxicity is patient-dependent and may occurat any level. Careful correlation with the patient'spresentation is necessary and, if there is concern forvitamin D toxicity, treatment should be consideredirrespective of the serum level.Care must be taken in interpreting Vitamin D results fromdifferent laboratories and methodologies. Published datademonstrated that results from patients undergoinghemodialysis may show a negative bias when tested withvarious automated 25-OH vitamin D assays when compared toLC-MS/MS.When testing samples from patients whose predominant form ofVitamin D is Vitamin D2, such as patients receiving VitaminD2 supplementation, results that are subtherapeutic shouldbe confirmed with another method such as LC-MS/MS. Blood Venous blood specimen / Unknown 07/23/2025 8:15 AM EDT 07/23/2025 11:39 AM EDT us Esther Keane MD LAB BLOOD ORDERAB LES Final Result Performing Organization Address [facility] Co de Phone Number [facility] [address] [place] [phone] * TSH with Reflex to Free T4 (07/23/2025 8:15 AM EDT) TSH reflex Free T4 1.73 0.32 - 4.0 uIU/mL [facility] Blood 07/23/2025 8:15 AM EDT 07/23/2025 11:39 AM EDT us Esther Keane MD LAB BLOOD ORDERAB LES Final Result Performing Organization Address [facility] Phone Number [facility] [address] [place] [address] [phone] * Albumin, Random Urine W/Creatinine (07/23/2025 8:15 AM EDT) Creatinine, Urine 265.39 mg/dL [facility] Microalbumin Urine 16.0 mg/L [facility] Microalbum Creatinine Ratio Ur 6.0 <30 ug/mg cr [facility] Comment:Albumin/Creatinine R atio Reference Ranges: Normal: < 30 ug/mg creatinine Microalbuminuria: 30 - 300 ug/mg creatinineClinical Albuminuria: > 300 ug/mg creatinine Urine (Urine, Random) 07/23/2025 8:15 AM EDT 07/23/2025 11:16 AM EDT us Esther Keane MD LAB URINE ORDERAB LES Final Result Performing Organization Address [facility] Co de Phone Number [facility] [address] [place] [address] [phone] * CBC auto differential (07/23/2025 8:15 AM EDT) White Blood Count 7.5 4.8 - 10.8 X10*3/uL [facility] Red Blood Count 5.30 4.60 - 5.80 X10*6/uL [facility] Hemoglobin 14.9 14.0 - 18.0 g/dl [facility] Hematocrit 44.6 42.0 - 52.0 % [facility] Mean Corpuscular Volume 84.2 80.0 - 98.0 fL [facility] Mean Corpuscular Hemoglobin 28.1 27.0 - 33.0 pg [facility] Mean Corpuscular HGB Conc 33.4 31.0 - 36.0 g/dl [facility] Red Cell Distribution Width 13.2 11.0 - 16.0 % [facility] Platelet Count 279 160 - 400 X10*3/uL [facility] Mean Platelet Volume 10.5 9.4 - 12.4 fL [facility] Neutrophils Percent Auto 61.9 45 - 73 % [facility] Imm Gran Pct Auto 0.3 0.0 - 0.4 % [facility] Lymphocytes Percent Auto 26.0 20 - 40 % [facility] Monocytes Percent Auto 7.0 2 - 11 % [facility] Eosinophils Percent Auto 4.0 0 - 4 % [facility] Basophils Percent Auto 0.8 0 - 2 % [facility] NRBC Pct Auto 0.0 0.0 - 0.2 /100WBC [facility] Neutrophils Absolute Auto 4.6 2.0 - 8.3 x10*3/uL [facility] Imm Gran Abs Auto 0.02 0.00 - 0.03 X10*3/uL [facility] Lymphocytes Absolute Auto 1.9 1.2 - 4.9 X10*3/uL [facility] Monocytes Absolute Auto 0.5 0.1 - 1.2 X10*3/uL [facility] Eosinophils Absolute Auto 0.3 0.0 - 0.4 X10*3/uL [facility] Basophils Absolute Auto 0.1 0.0 - 0.2 X10*3/uL [facility] NRBC Abs Auto 0.000 0.0 - 0.012 X10*3/uL [facility] Blood Venous blood specimen / Unknown 07/23/2025 8:15 AM EDT 07/23/2025 11:32 AM EDT us Esther Keane MD LAB BLOOD ORDERAB LES Final Result [facility] [address] [place] [phone] * Hepatitis C Antibody with Reflex to HCV, RNA, Quantitative, Real-Time PCR (07/23/2025 8:15 AM EDT) Pathologist [facility] Hepatitis C Antibody Nonreactive Nonreactive [facility] Comment:Antibodies to HCV no t detected; does not exclude early acuteHCV infection. Blood Venous blood specimen / Unknown 07/23/2025 8:15 AM EDT 07/23/2025 11:32 AM EDT us Esther Keane MD LAB BLOOD ORDERAB LES Final Result Performing Organization Address City/[facility]/ZIP Co de Phone Number [facility] [address] [place] [phone] * Hepatitis B surface antigen, EIA (07/23/2025 8:15 AM EDT) Hepatitis B Surface Ag Negative Negative [facility] Blood Venous blood specimen / Unknown 07/23/2025 8:15 AM EDT 07/23/2025 11:32 AM EDT us Esther Keane MD LAB BLOOD ORDERAB LES Final Result Performing Organization Address City/[facility]/ZIP Co de Phone Number [facility] [address] [place] [phone] * Hepatitis B Core Antibody, Total (07/23/2025 8:15 AM EDT) [facility] Hepatitis B Core Antibody Nonreactive Nonreactive [facility] Blood Venous blood specimen / Unknown 07/23/2025 8:15 AM EDT 07/23/2025 11:32 AM EDT Esther Keane MD LAB BLOOD ORDERAB LES Final Result Performing Organization Address City/[facility]/ZIP Co de Phone Number [facility] [address] [place] [phone] * HIV-1/2 Antigen and Antibodies, Fourth Generation, with Reflexes (07/23/2025 8:15 AM EDT) [facility] HIV AB/AG Nonreactive Nonreactive [facility] Comment:HIV-1 p24 Ag and/or HIV-1/HIV-2 Ab not detected.A test result that is nonreactive does not exclude thepossibility of exposure to or infection with HIV-1 and/orHIV-2. Nonreactive results in this assay for individualswith prior exposure to HIV-1 and/or HIV-2 may be due toantigen and antibody levels that are below the limit ofdetection of this assay.The LetsdecconiLoopster HIV Ag/Ab Combo assay result andsupplemental assay results should be interpreted inconjunction with the patient's clinical presentation,history and other laboratory results. If the results areinconsistent with clinical evidence, additional testing issuggested to confirm the result. Blood Venous blood specimen / Unknown 07/23/2025 8:15 AM EDT 07/23/2025 11:32 AM EDT us Esther Keane MD LAB BLOOD ORDERAB LES Final Result Performing Organization Address [facility]/ZIP Co de Phone Number [facility] [address] [place] [phone] * Hepatitis B Surface Antibody, Qualitative (07/23/2025 8:15 AM EDT) [facility] ~Hepatitis B Surface Antibody NONREACTIVE Nonreactive [facility] Comment:Nonreactive: < 8.00 mIU/mL Blood Venous blood specimen / Unknown 07/23/2025 8:15 AM EDT 07/23/2025 11:32 AM EDT us Esther Keane MD LAB BLOOD ORDERAB LES Final Result Performing Organization Address [facility]/ZIP Co de Phone Number [facility] [address] [place] [phone] * Hemoglobin A1c (07/23/2025 8:15 AM EDT) Hemoglobin A1c 5.7 <6.0 % [facility] Comment:Hemoglobin A1C Refer ence Range Adults: 4.8 - 6.0 % Non diabetic: < 6.0 % Goal: < 7.0 %Additional Action Suggested: > 8.0 %Note: Hemoglobin A1c results are invalid for patients with abnormal amounts of HbF. Blood transfusions may impact the HbA1c concentration in the patient sample. Estimated Average Glucose 117 mg/dL [facility] Comment:eAG = Estimated ave rage glucose which is %A1C expressed asaverage glucose, using the formula of the Q2B-QtuzvgmTqowbxj Glucose study (ADAG), Diabetes Care, Vol.31,#8,Apr. 2007 Blood Venous blood specimen / Unknown 07/23/2025 8:15 AM EDT 07/23/2025 11:32 AM EDT us Esther Keane MD LAB BLOOD ORDERAB LES Final Result Performing Organization Address [facility]/ZIP Co de Phone Number [facility] [address] [place] [phone] * (ABNORMAL) Lipid Panel, Standard (07/23/2025 8:15 AM EDT) Triglycerides 62 <150 mg/dL [facility] Comment:Desirable Triglyceri de: less than 150 mg/dLBorderline High Triglyceride 150-199 mg/dLHigh Triglyceride: 200-499 mg/dLVery High Triglyceride: greater than or equal to 5OO mg/dL Cholesterol 152 <200 mg/dL [facility] Comment:Desirable Cholestero l: less than 200 mg/dLBorderline High Cholesterol: 200-239 mg/dLHigh Cholesterol: greater than 239 mg/dL LDL Cholesterol Calculated 101(H) <100 mg/dL [facility] Comment:Desirable LDL: less than 100 mg/dLNear Optimal/Above Optimal LDL: 110- 129 mg/dLBorderline High LDL: 130-159 mg/dLHigh LDL: 160-189 mg/dLVery High LDL: greater than or equal to 190 mg/dL HDL Cholesterol 39(L) >40 mg/dL [facility] Comment:Desirable HDL: great er than 40 mg/dL Note: This HDL assay may give artificially low results in patients with liver disease. Blood Venous blood specimen / Unknown 07/23/2025 8:15 AM EDT 07/23/2025 11:39 AM EDT Esther Keane MD LAB BLOOD ORDERAB LES Final Result [facility] [address] [place] [phone] * (ABNORMAL) Comprehensive Metabolic Panel (07/23/2025 8:15 AM EDT) Sodium 138 135 - 145 mmol/L [facility] Potassium 4.2 3.3 - 5.1 mmol/L [facility] Chloride 106 96 - 108 mmol/L [facility] Carbon Dioxide 27 22 - 29 mmol/L [facility] Anion Gap 9(L) 12 - 20 [facility] Urea Nitrogen (BUN) 17(H) 9 - 16 mg/dL [facility] Creatinine, Serum 0.92 0.5 - 1.4 mg/dL [facility] Estimated Glomerular Filt Rate >60 [facility] Comment:Chronic Kidney Disea se: Estimated GFR < 60 mL/min/1.82i4Oywjif Kidney Disease: Estimated GFR < 15 mL/min/1.73m2 Glucose 99 60 - 115 mg/dL [facility] Calcium 9.2 8.4 - 10.2 mg/dL [facility] Bilirubin, Total 0.4 0.0 - 1.0 mg/dL [facility] Aspartate Amino Transferase 30 5 - 37 U/L [facility] Alanine Aminotransferase 40 0 - 40 U/L [facility] Total Protein 7.5 6.5 - 8.0 g/dL [facility] Albumin Level 4.7 3.5 - 5.0 g/dL [facility] Alkaline Phosphatase 71 39 - 117 U/L [facility] Blood Venous blood specimen / Unknown 07/23/2025 8:15 AM EDT 07/23/2025 11:39 AM EDT Esther Keane MD LAB BLOOD ORDERAB LES Final Result [facility] [address] [place] [address] [phone] * ECG 12 lead (07/20/2025 1:56 PM EDT) Only the most recent of3 resultswithin the time period is included. Narrative Esther Hoang MD - 07/20/2025 1:56 PM EDT EKG today HR 71, QTC 419, slight IV conduction delay , no ischemic changes Esther Keane MD ECG ORDERABLES F inal Result * Referral to Physical Therapy (06/06/2025) us Esther Keane MD OUTPATIENT REFERR AL ORDERABLES Final Result from Last 3 Months Insurance [facility] 2 Care Teams Bilingual Office Assistant Relationship Specialty Start Date End Date Esther Hoang MD [address] [place] [phone] PCP - General Internal Medicine 09/15/23
--- OUTSIDE RECORDS SUMMARY | 2025-08-21 17:16 | XMS_ITS | Clinical Summary ---
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
--- OUTSIDE RECORDS SUMMARY | 2025-08-21 17:16 | XMS_ITS | Continuity of Care Document ---
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 I do not observe any obvious inverted papilloma during this visit, which is reassuring. The patient reports difficulty swallowing, particularly with food, and feels as though food may get stuck in his throat. I will order a swallowing test to evaluate this further. This test will involve drinking liquids and taking images to assess for any abnormalities or obstructions. The patient is currently taking omeprazole for reflux management. I discussed that prolonged use of omeprazole is not ideal, and he has an appointment scheduled with a bus attendant next year for further evaluation of his reflux symptoms. FOLLOW-UP: The patient will undergo a swallowing test as ordered. He is advised to follow up with the bus attendant as scheduled next year for reflux management. [email or web address] Not available 08/16/2025 15:03:08 Plan of Treatment Reminders Order Date Submit Date Provider Last Modified By Organization Details Last Modified Time Details Appointments Establish ed 30 2025 02:30P M TRICIA RECINOS MD Not available Not available Not available Lab None recorded. Referral None recorded. Procedures None recorded. Surgeries None recorded. Imaging barium swallow study 2024 025 [email or web address] Not available 08/21/2025 11:43:05 Medication Orders None recorded. Patient TargetsNo targets recorded. Patient Instructions Encounter Date Encounter Id Patient Instructions Last Modified By Joshua on Details Last Modified Time 08/16/2025 [id number] - Undergo the swallowing test as ordered. - Follow up with the bus attendant next year for reflux management. [email or web address] Not available 08/16/2025 15:03:08 Please note: Par ts of this encounter note have been generated by AI based on audio conversation. Patient consent was required prior to utilizing this technology. Content review was required prior to finalizing the note. [email or web address] Not available 08/16/2025 15:03:08 Reason for Referral None Reported. Problems Name Problem SNOMED Code Status Onset Date Resolution Date Notes Provider Name and Address Organization Details Recorded Time Dysphonia 51088157 Active 2023 Hoarsenes s; Note: Date Diagnosed : 01/19/2024 2:29 PM (R49.0) Not Available [facility] 4 03:19:00 Gastroeso phageal reflux disease without esophagit is 701121539 Active 2023 Gastro-es ophageal reflux disease without esophagit is; Note: Date Diagnosed : 01/19/2024 2:29 PM (K21.9) Not Available [facility] 4 03:19:00 Allergic rhinitis 53063209 Active 2023 Allergic rhinitis: Due to other allergen; Note: Date Diagnosed : 02/07/2024 11:06 AM (477.8) Not Available [facility] 4 03:19:00 Polyp of nasal cavity 505660012 Active 2023 TRICIA HARVEY MD [address] [facility] [address], [place], [address] , [place] [facility] [facility] 4 15:32:25 Chronic hoarsenes s 11619181061 05 Active 2023 TRICIA HARVEY MD [address] [facility] [address], [place], [address] , [place] [facility] 5 16:06:55 Deviated nasal septum 786626222 Active 2024 TRICIA HARVEY MD [address] [place],[address], [place], [address] , [place] - [facility] 5 12:04:00 Benign inverted papilloma 41349660742 9103 Active 2024 TRICIA HARVEY MD [address] [facility] [place],[address], [place], [address] , [place] [facility] 5 16:05:03 Chronic sinusitis 10374708 Active 2024 TRICIA HARVEY MD [address] [facility] [place] [address], [place], [address] , [place] [facility] 5 16:05:20 Gastroeso phageal reflux disease 337784679 Active 2024 TRICIA HARVEY MD [address] [facility],[place] [address], [place], [address] , [place] [facility] 5 16:00:14 Benign neoplasm of accessory sinus 00634900 Active 2024 TRICIA HARVEY MD [address] [facility] [place],[facility] [address], [place], [address] , [place] [facility] 5 16:18:32 Neoplasti c disease 89496555 Active 2024 TRICIA HARVEY MD [address] [facility] [place],[facility] [address], [place], [address] , [place] [facility] 5 16:18:39 Dysphagia 24769579 Active 2024 TRICIA HARVEY MD [address] [facility] [place],[address], [place], [address] , [place] [facility] 5 15:02:11 Hoarse 47824613 Active 2024 TRICIA HARVEY MD [address] [facility] [place] [address], [place], [address] , [place] [facility] 15:02:16 Gastric reflux 061892497 Active 2024 TRICIA HARVEY MD [address] [facility] [place],[address] [place] [address], [address] , [place] [facility] 15:02:20 Problem Notes None recorded. Procedures Surgical History Date Name Laterality Status Provider Name and Address Organization Details Recorded Time 08/16/20 25 JMSNasal/Sinus Endoscopy-PRIOR surgical cavities completed TRICIA VILLA MD [address] [facility] [place],[address] [address] [place] [address], [address], [place] - [facility] 08/16/2025 15:01:42 05/16/20 25 JMSNasal/Sinus Endoscopy-PRIOR surgical cavities completed TRICIA VILLA MD [address] [facility] [address] [place] [address], [address], [place] [facility] 05/16/2025 15:42:39 05/16/20 25 Fiberoptic Laryngoscopy (Comprehensive) completed TRICIA VILLA MD [address] [facility] [place],[address], [place], [address], [place] [facility] 05/16/2025 15:42:32 03/19/20 25 JMSNasal/Sinus Endoscopy-PRIOR surgical cavities completed TRICIA VILLA MD [address],GAN[address] [facility], [place], [address], [place] [facility] 03/19/2025 15:56:27 03/19/20 25 Fiberoptic Laryngoscopy (Comprehensive) completed TRICIA VILLA MD [address] [facility] [place],[address] [address] [place] [address], [address], [place] [facility] 03/19/2025 16:18:21 02/22/20 25 JMSNasal/Sinus Endoscopy-DEBRIDE MENT completed TRICIA VILLA MD [address] [facility] [address] [place] [address], [address], [place] [facility] 02/21/2025 16:04:51 02/10/20 25 JMSNasal/Sinus Endoscopy-DEBRIDE MENT completed GENEVIEVE HA PA-C [address], [place], [address], [facility] - [facility] 02/09/2025 09:55:35 02/07/20 25 nasal septoplasty completed TRICIA VILLA MD [address], [place], [address], [facility] - [facility] 02/06/2025 16:46:28 02/07/20 25 nasal endoscopy with maxillary antrostomy completed TRICIA VILLA MD [address], [place], [address], [place] [facility] 02/06/2025 16:46:36 02/07/20 25 nasal endoscopy with partial ethmoidectomy completed TRICIA VILLA MD [address],GAN[place] [facility], [place], [address], [place] [facility] 02/06/2025 16:46:43 12/29/19 25 Nasal Endoscopy completed TRICIA VILLA MD [address],GAN[place] [facility], [place], [address], [place] [facility] 12/28/2024 12:03:55 submucous resection of nasal turbinate completed TRICIA VILLA MD [address], [place], [address], [facility] - [facility] 02/06/2025 16:46:49 Imaging Results None recorded. [...] mg tablet 02/09 completed Medicati on ID: [id number] B rand Name: manuel ne Send Method: E-Prescr ibed Sub s [...] omeprazol e 40 mg capsule,d elayed release Take 1 capsule every day by oral route. 2024 active Not Available Not Available Not Avai lable acetamino phen 500 mg tablet TOME DOS TABLETAS POR V A ORAL CADA SEIS HORAS CUANDO SEA NECESARI O PARA EL DOLOR 03/19 completed Not Available Not Available Not Available losartan 100 mg-hydroc hlorothia zide 25 mg tablet TAKE 1 TABLET BY MOUTH EVERY MORNING active Not Available Not Available No t [...] completed Not Available Not Available Not Available naproxen 500 mg tablet TAKE 1 TABLET BY ORAL ROUTE TWICE DAILY NEEDED FOR MODERATE PAIN active Not Available Not Available No t Available amoxicill in 875 mg-potass ium clavulana te 125 mg tablet TOME 1 TABLETA POR V A ORAL DOS VECES AL D A 02/09 completed Not Available Not Available Not Available topiramat e 50 mg tablet TOME JONO TABLETA POR V A ORAL TODOS LOS D active Not Available Not Available No t Available Fiber (calcium polycarbo ewa) 625 mg [...] Not Available Vitals Date Recorded Body height Provider Name an d Address Organization Details Last Updated DateTime 08/16/2025 177.8 cm FLORENCIO LOCKEKatya [place] - [facility] 08/16/2025 14:39:26 Social History None recorded. Functional Status None recorded. Mental Status None recorded. Family History Nothing Reported. Medical History Condition Response GERD/Reflux Y Hypertension Y Past Encounters Encounter ID Performer Location Encounter Start Date Encounter Closed Date Diagnosis/Indication Diagnosis SNOMED-CT Code Diagnosis ICD10 Code Diagnosis IMO Codes Diagnosis Note [id number] TRICIA HARVEY MD [facility] [address] [address] 08/16/2025 14:33:37 08/16/2025 15:07:15 History of inverted papilloma 7146620319 71698 Z86.134 0735008 Dysphagia 46005452 R13.1 9 562113 Hoarse 12637695 R49.0 398256 Gastric reflux 714731926 K21.9 795036 Health Concerns Section Related Observation LastModified by Organization Detai ls LastModified Time None Recorded Concern Status LastModified by Organization Details LastModified Time None Recorded Payers Encounter Date Sequence Insurance Name Policy Number Policy Orozco Covered Member ID Orozco Member ID Guarantor Name 08/16/2025 1 [place]ICA[place]: [facility] Gregory Huston [id number] Gregory Huston Notes Date Note Type Note Provider Name and Address Organization Details Recorded Time 08/16/2025 text/html Gregory Huston is a 34-year-old male who presents for follow-up regarding papilloma in the nose. The patient reports a history of voice changes since childhood. He also describes difficulty with swallowing, particularly when eating food, and feels as though food may get stuck in his throat. He has not undergone a swallowing test previously. Additionally, the patient called for a refill of omeprazole for reflux management and has an appointment scheduled with a bus attendant next year. No other relevant medical history, surgeries, allergies, family history, or social history were discussed during this visit. TRICIA VILLA MD [address] [place] [address], [address], [place] - [facility] 08/16/2025 15:03:49
--- OUTSIDE RECORDS SUMMARY | 2025-08-21 17:16 | XMS_ITS | Data Portability ---
Author Organization [place] - [facility], Allergy Address [address] [address] Care Team Providers Care Table Games Dual Rate Supervisor Name Role Phone RACHEL ROSARIO Primary Care Provider Assessment Encounter Date Assessment Date Assessment LastModified by Organization Details LastModified Time 02/09/2025 02/09/2025 34yo male presen ts following presents following septoplasty, turbinate reduction, and right FESS with polypectomy on 02/06/[address] Villa. Patient is doing well post-operatively. Wells splints removed and nasal cavities debrided. Recommend Afrin if continued bleeding for up to three days. Reviewed post-operative nasal precautions including avoiding nose blowing, sneezing with mouth open, and heavy lifting greater than 15 pounds for two weeks following surgery. Patient will continue nasal saline spray 6 times daily. Follow up in 2 weeks with . [email or web address] Not available 02/09/2025 09:56:05 02/21/2025 02/21/2025 Moderate crustin g removed from right side. Reviewed pathology and need for close follow up. He has chronic hoarseness and we will follow-up with fiberoptic examination next time jojo Not available 02/21/2025 16:06:42 03/19/2025 03/19/2025 30 degree endosc opy shows only mild swelling along maxillary ostium Chronic hoarseness- bilateral edema and severe hyperfunction Suggest stop famotidine and switch omeprazole. 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 FOLLOW-UP: The patient will undergo a swallowing test as ordered. He is advised to follow up with the powder and primer canning leader as scheduled next year for reflux management. [email or web address] Not available 08/16/2025 15:03:08 Plan of Treatment Reminders Order Date Submit Date Provider Last Modified By Organization Details Last Modified Time Details Appointments Establi shed 30 2025 02:30P M STEFAN RECINOS MD Not available Not available Not available Lab None recorde d. Referral speech therapy referra l 2024 025 [facility], [address], [address], [place], [address], 05/18/2025 11:03:36 Procedures None recorde d. Surgeries None recorde d. Imaging barium swallow study 2024 025 [email or web address] Not available 08/21/2025 11:43:05 Medication Orders omepraz ole 40 mg capsule ,delaye d release 2024 025 [facility] #[id number], [address] [place], [address], 03/19/2025 16:01:19 Patient TargetsNo targets recorded. Patient Instructions Encounter Date Encounter Id Patient Instructions Last Modified By Joshua on Details Last Modified Time 05/16/2025 [id number] Schedule and attend speech therapy sessions. Return for follow-up in July. [email or web address] Not available 05/16/2025 15:41:13 Please note: Par ts of this encounter note have been generated by AI based on audio conversation. Patient consent was required prior to utilizing this technology. Content review was required prior to finalizing the note. [email or web address] Not available 05/16/2025 15:41:13 08/16/2025 [id number] - Undergo the swallowing test as ordered. - Follow up with the powder and primer canning leader next year for reflux management. [email or web address] Not available 08/16/2025 15:03:08 Please note: Par ts of this encounter note have been generated by AI based on audio conversation. Patient consent was required prior to utilizing this technology. Content review was required prior to finalizing the note. [email or web address] Not available 08/16/2025 15:03:08 Reason for Referral Referring Physician: Stefan fong, Otolaryngology, Encounter Date: 05/16/2025 Results Created Date Observation Date Name Description Value Unit Range Abnormal Flag Note LastModifiedBy Organization Detail LastModifiedTime 02/14/20 25 02/06/2025 clini cyndi photo * No observ ation record ed. [email or web address] Not Available 01/26 09:06:58 02/14/20 25 02/06/2025 clini cyndi photo * No observ ation record ed. [email or web address] Not Available 01/26 09:08:15 Result Notes None recorded. Problems Name Problem SNOMED Code Status Onset Date Resolution Date Notes Provider Name and Address Organization Details Recorded Time Dysphonia 02978154 Active 2023 Hoarsenes s; Note: Date Diagnosed : 01/19/2024 2:29 PM (R49.0) Not Available [facility] 4 03:19:00 Gastroeso phageal reflux disease without esophagit is 087787194 Active 2023 Gastro-es ophageal reflux disease without esophagit is; Note: Date Diagnosed : 01/19/2024 2:29 PM (K21.9) Not Available [facility] 4 03:19:00 Allergic rhinitis 82454403 Active 2023 Allergic rhinitis: Due to other allergen; Note: Date Diagnosed : 02/07/2024 11:06 AM (477.8) Not Available [facility] 4 03:19:00 Polyp of nasal cavity 641074069 Active 2023 STEFAN HARVEY MD [address], [place], [address] , [place] - [facility] 4 15:32:25 Chronic hoarsenes s 05313409299 05 Active 2023 STEFAN HARVEY MD [address], [place], [place], [address] , [place] [facility] 5 16:06:55 Deviated nasal septum 550887397 Active 2024 STEFAN HARVEY MD [address], [place], [place], [address] , [place] - [facility] 5 12:04:00 Benign inverted papilloma 93658300126 9103 Active 2024 STEFAN HARVEY MD [address], [place], [place], [address] , [place] [facility] 5 16:05:03 Chronic sinusitis 48693965 Active 2024 STEFAN HARVEY MD [address], [place], [address] , [place] [facility] 5 16:05:20 Gastroeso phageal reflux disease 949643978 Active 2024 STEFAN HARVEY MD [address] [facility] [place] [address], [place], [address] , [place] - [facility] 16:00:14 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 2024 STEFAN HARVEY MD 100 [facility],[place] [address], [place], [address] , [place] [facility] 16:18:32 Neoplasti c disease 11238144 Active 2024 STEFAN HARVEY MD [address] [facility],[place] [address], [place], [address] , [place] [facility] 16:18:39 Dysphagia 83665129 Active 2024 STEFAN HARVEY MD [address] [facility],[place] [address], [place], [address] , [place] [facility] 15:02:11 Hoarse 42512866 Active 2024 STEFAN HARVEY MD [address] [facility],[place] [address], [place], [address] , [facility] - [facility] 15:02:16 Gastric reflux 793214277 Active 2024 STEFAN HARVEY MD [address] [facility],[place] [address], [place], [address] , [facility] - [facility] 15:02:20 Problem Notes None recorded. Procedures Surgical History Date Name Laterality Status Provider Name and Address Organization Details Recorded Time 08/16/20 25 JMSNasal/Sinus Endoscopy-PRIOR surgical cavities completed STEFAN VILLA MD [address] [facility],[place] [address], [place], [address], [place] - [facility] 08/16/2025 15:01:42 05/16/20 25 JMSNasal/Sinus Endoscopy-PRIOR surgical cavities completed STEFAN VILLA MD 100 [facility],[address], [address], [place] - [facility] 05/16/2025 15:42:39 05/16/20 25 Fiberoptic Laryngoscopy (Comprehensive) completed STEFAN VILLA MD [address] [facility],[address], [address], [facility] - [facility] 05/16/2025 15:42:32 03/19/20 25 JMSNasal/Sinus Endoscopy-PRIOR surgical cavities completed STEFAN VILLA MD [address] [facility],[address], [address], [place] - [facility] 03/19/2025 15:56:27 03/19/20 25 Fiberoptic Laryngoscopy (Comprehensive) completed STEFAN VILLA MD 100 [facility],[address], [address], [place] - [facility] 03/19/2025 16:18:21 02/22/20 25 JMSNasal/Sinus Endoscopy-DEBRIDE MENT completed STEFAN VILLA MD [address] [facility],[address], [address], [place] - [facility] 02/21/2025 16:04:51 02/10/20 25 JMSNasal/Sinus Endoscopy-DEBRIDE MENT completed GENEVIEVE HA PA-C [address] [facility],[address], [address], [place] - [facility] 02/09/2025 09:55:35 02/07/20 25 nasal septoplasty completed STEFAN VILLA MD 100 [facility],[address] [place] [address], [address], [facility] - [facility] 02/06/2025 16:46:28 02/07/20 25 nasal endoscopy with maxillary antrostomy completed STEFAN VILLA MD [address] [facility],[address], [address], [facility] - [facility] 02/06/2025 16:46:36 02/07/20 25 nasal endoscopy with partial ethmoidectomy completed STEFAN VILLA MD [address] [facility],[address], [address], [facility] - [facility] 02/06/2025 16:46:43 12/29/19 25 Nasal Endoscopy completed STEFAN VILLA MD [address] [facility],[place] [address], [place], [address], [facility] 12/28/2024 12:03:55 submucous resection of nasal turbinate completed STEFAN VILLA MD [address] [facility],[address], [address], [facility] - [facility] 02/06/2025 16:46:49 Imaging Results None recorded. [...] mg tablet 02/09 completed Medicati on ID: [id number] B rand Name: manuel garcia Send Method: [...] NOT LIE DOWN FOR 30 MINUTES AFTER. 06/14 /2024 completed Not Available Not Available Not Available [...] Updated DateTime 02/09/2025 177.8 cm 34.4 kg/m2 180308.17 g Kallie Gómez [place] - [facility] 02/09/2025 09:36:23 Date Recorded Body height Body mass index (BMI) Body weight Provider Name and Address Organization Details Last Updated DateTime 03/19/2025 177.8 cm 35.2 kg/m2 505988.13 g Kallie Gómez [place] - [facility] 03/19/2025 15:36:51 Date Recorded Body height Provider Name an d Address Organization Details Last Updated DateTime 08/16/2025 177.8 cm FLORENCIO ANDERSON [place] - [facility] 08/16/2025 14:39:26 Social History None recorded. Functional Status None recorded. Mental Status None recorded. Family History Nothing Reported. Medical History Condition Response Hypertension Y GERD/Reflux Y Past Encounters Encounter ID Performer Location Encounter Start Date Encounter Closed Date Diagnosis/Indication Diagnosis SNOMED-CT Code Diagnosis ICD10 Code Diagnosis IMO Codes Diagnosis Note [id number] STEFAN HARVEY MD [facility] [address] [address] 03/10/2024 08:29:32 03/10/2024 09:05:57 Polyp of nasal cavity 066376921 J33.[address] pending[address] Allergy minimal CT end of the month. Brochure given re sinus surgery Chronic hoarseness 80412 07314 105 R49.0 waiting for speech therapy. Working with PCP on GERD management [id number] STEFAN HARVEY MD [facility] [address] [address] 12/28/2024 10:32:28 12/28/2024 12:13:10 Allergic rhinitis 26583017 J30.9 Polyp of nasal cavity 73 5979328 J33.0 The risks and benefits of endoscopic [...] the near future. Deviated nasal septum 12 7229961 J34.2 [id number] GENEVIEVE HA PA-C [facility] [address] [address] 02/09/2025 09:29:02 02/09/2025 09:55:45 Deviated nasal septum 907413920 J34.2 Polyp of nasal cavity 73 6616412 J33.0 [id number] STEFAN HARVEY MD [facility] [address] [address] 02/21/2025 15:30:36 02/22/2025 13:17:17 Benign inverted papilloma 4360789759 59761 D36.9 5578043241 Chronic sinusitis 251625 00 J32.8 94003 Needs aggressive saline irrigation s twice daily Chronic hoarseness 05444 11385 105 R49.0 8113555 FOL next visit [id number] STEFAN HARVEY MD [facility] [address] [address] 03/19/2025 15:12:55 03/19/2025 16:05:13 Gastroesophageal reflux disease 667464283 K21.9 79136211 Benign elvira plasm of accessory sinus 82129926 D14.0 09285758 No evidence of persistent or recurrent inverted papilloma at the present time. There is a small amount of swelling along the inferior aspect of the maxillary ostium. We discussed possibly proceeding with medial maxillecto my. He wants to see how things go over the next couple of months. Chronic hoarseness 99735 17382 105 R49.0 0485343 FOL next visit [id number] STEFAN HARVEY MD [facility] [address] [place] [address] 05/16/2025 15:10:42 05/16/2025 15:42:34 Gastroesophageal reflux disease 668850326 K21.9 87936483 Benign elvira plasm of accessory sinus 11351996 D14.0 86996273 No evidence of persistent or recurrent inverted papilloma at the present time. Chronic hoarseness 28071 01643 105 R49.0 2230607 [id number] STEFAN HARVEY MD [facility] [address] [address] 08/16/2025 14:33:37 08/16/2025 15:07:15 History of inverted papilloma 6637208322 03591 Z86.426 7379759 Dysphagia 29406463 R13.1 9 545739 Hoarse 47417609 R49.0 794836 Gastric reflux 441134401 K21.9 475746 Health Concerns Section Related Observation LastModified by Organization Detai ls LastModified Time None Recorded Concern Status LastModified by Organization Details LastModified Time None Recorded Advance Directives Directive None Recorded Payers Insurance Date Sequence Insurance Name Policy Number Policy Orozco Covered Member ID Orozco Member ID Guarantor Name 08/15/2025 1 [place] [facility] Gregory Huston [id number] Gregory Huston Notes Date Note Type Note Provider Name and Address Organization Details Recorded Time 02/09/2025 text/html ROS as noted in the HPI 34yo male presents following presents following septo, turb, and right FESS with polypectomy on 02/06/[address] Villa. Pathology is not available for review in chart. Patient irrigates with saline daily. Denies nasal bleeding. Pain is improving. He manages pain with tylenol. STEFAN VILLA MD 100 [facility],[address], [address], [facility] 02/09/2025 10:38:43 03/19/2025 text/html Hx of right inverted papilloma. Chronic hoarseness feels worse lately. More GERD recently.Famotidine not controlling sx STEFAN VILLA MD [address] [facility] [address],[facility], [place], [address], [facility] 03/19/2025 16:20:21 05/16/2025 text/html Gregory Huston is a 34-year-old male who presents for follow-up evaluation of a papilloma. He reports no breathing difficulties, bleeding, or nasal obstruction. He has a history of chronic vocal cord swelling and hyperfunction, with lifelong hoarseness. He notes that his voice has recently worsened, sounding more broken and less clear than usual. STEFAN VILLA MD 100 [facility], [place], [address], [facility] - [facility] 05/16/2025 17:07:46 08/16/2025 text/html Gregory Huston is a 34-year-old [...] and has an appointment scheduled with a powder and primer canning leader next year. No other relevant medical history, surgeries, allergies, family history, or social history were discussed during this visit. STEFAN VILLA MD [address] [place] [address], [address], [facility] - [facility] 08/16/2025 15:03:49
== END 2025-08-21 13:24 | disposition home or self-care (01) ==
LOC: HO.HHCX 13:23
PROVIDERS: Visit Provider Family Medicine
DX: M25.522 Pain in left elbow (principal); G89.29 Other chronic pain
CPT/HCPCS: 73080

== ENCOUNTER → 2025-08-21 13:23 | Outpatient (BNV) | payer MEDICAID, SELFPAY | PROVIDERS: Visit Provider Radiology Diagnostic Radiology | DX: M25.522 Pain in left elbow (principal) | CPT/HCPCS: 73080 ==

== ENCOUNTER 2025-09-19 12:33 | Outpatient (AMB) | payer OTHER, SELFPAY ==
--- NOTE | 2025-09-19 12:34 | MHC.OFFVIS ---
Vital Signs 09/19/25 12:40 Height 5 ft 10 in Weight 238 lb 8.642 oz BMI 34.2 BP 130/80 Blood Pressure Location Lt brachial Position Sitting Pulse 55 Pulse Source Monitor Intake Visit Reasons: Palpitations Engineer Remote Control Diesel Required: Yes Engineer Remote Control Diesel Name: voyce/estonian Accompanied by: Self / Same As Patient Allergies No Known Allergies (No Known Allergies*) Allergy (Verified 07/24/25 13:45) Medication List - Last Reconciled 09/19/25 by Ezra Mukherjee MD amlodipine 5 mg PO Q12H losartan-hydrochlorothiazide 100-25 mg 1 tab PO QAM metoprolol succinate ER 100 mg PO QAM ondansetron 4 mg PO DAILY PRN 5 days HPI Comments Details: The patient is a 35 year old male presenting for management of uncontrolled hypertension. He has a history of high blood pressure since the age of 16. His current medical regimen includes amlodipine, metoprolol, losartan/HCTZ at optimal doses. At home, he has noted blood pressure readings such as 140/98 mmHg. When his blood pressure is elevated, he experiences chest pressure, difficulty breathing, and abdominal pain, which can occur up to twice a week. To manage these episodes, he typically goes home, takes a shower, and tries to relax. The patient has also been dealing with sleep apnea for approximately a year and a half. He was recently approved for a CPAP machine and is scheduled to pick it up soon. He denies current chest pain or pressure. [facility] Surgical History H/O endoscopy Family History (Updated 09/19/25 @ 12:44 by Lindy Jolley CMA) Father Diabetes High blood cholesterol Sleep apnea High blood pressure Mother Thyroid disease Diabetes High blood cholesterol Social History (Updated 09/19/25 @ 12:44 by Lindy Jolley CMA) Alcohol intake: never Patient Tobacco Use Status: Never used Tobacco Review of Systems Const Denies chills, Denies fatigue, Denies fever(s), Denies frequent falls, Denies weakness, Denies weight gain and Denies weight loss ENT Denies dizziness Card Denies chest pain, Denies leg edema, Denies lightheadedness, Reports palpitations, Reports dyspnea, Denies dyspnea on exertion and Denies orthopnea Resp Denies cough, Reports dyspnea and Denies dyspnea on exertion GI Denies bloating and Denies change in bowel habits Musc Denies muscle weakness, Denies numbness and Denies tingling Neuro Denies dizziness, Denies frequent falls, Denies numbness, Denies tingling and Denies weakness Endo Denies fatigue and Reports palpitations Physical Exam Vital Signs: Last Vital Signs Pulse 55 09/19/25 12:40 BP 130/80 09/19/25 12:40 BMI result Body Mass Index 34.2 Const General: comfortable and no acute distress Orientation/consciousness: patient oriented x3 HEENT Other: Unremarkable Head: Yes normal to inspection Neck Neck: Yes normal visual inspection Chest Chest palpation & inspection: normal inspection of the chest Resp Auscultation: clear to auscultation bilaterally Cardio Palpation: normal PMI Heart sounds: S1 normal heart sound present, S2 normal heart sound present, no gallops, no murmurs and no rubs GI Palpation (GI): Soft to palpation Back/Spine/Pelvis Other: unremarkable Skin General skin exam: no rashes or lesions noted Neuro General: patient oriented x3 Extrem General: Yes normal to inspection Psych Mental Status: mental status grossly normal Office Procedures EKG Details: EKG with sinus bradycardia at 55/Min; rightward axis; early repolarization type changes; [place] [address]-Xffymesuilvxoihrn, Complete Assessment & Plan Assessment & Plan (1) HTN (hypertension): Code(s): I10 - Essential (primary) hypertension Category: Medical (2) Obesity (BMI 30.0-34.9): Code(s): E66.811 - Obesity, class 1 Category: Medical Plan Poorly controlled hypertension in young patient. Per PCP notes, renal Doppler without any evidence of hemodynamically significant renal artery stenosis. Additionally, it appears that he also underwent secondary hypertension workup which was also negative. Hence hypertension most likely related to his weight and lifestyle. Additionally, obstructive sleep apnea may play a role. With regard to medications, we will stop the metoprolol and start carvedilol. Hopefully that should help. Continue the current dose of amlodipine, losartan/HCTZ. Beyond this, consider spironolactone. We will get an echocardiogram for cardiac function assessment including any left ventricular hypertrophy with diastolic dysfunction. If present, that will warrant even more aggressive control of blood pressure. Also requested him to get the CPAP addressed soon. Discussion Notes: I explained to the patient that his blood pressure is not well-controlled with his current medications. I recommended changing one of his medications; I will stop the metoprolol and start a new medication from the same class that is better for blood pressure, which he can start tomorrow. I advised him to continue his other blood pressure pills. I also ordered an echocardiogram (heart ultrasound). I emphasized that the main issue beyond medication is his weight and that he needs to work on getting his weight down. We discussed the importance of starting his CPAP therapy once he receives the machine, as this will also help his blood pressure. I advised him to follow up in about three months. Patient was informed and verbally consented to the use of an ambient scribe for clinic note documentation during this visit. Orders: Orders CA echo transthoracic complete Today I10 - Essential (primary) hypertension Medications: New carvedilol (Coreg) must administer with a meal/food 25 mg PO BID 180 tabs 3RF 90 days Patient Instructions: - Stop taking your Metoprolol medication. - Starting tomorrow, begin taking the new blood pressure pill that was prescribed- Coreg. - Continue to take all your other blood pressure medicines as directed. - It is very important that you work on losing weight, as this will help lower your blood pressure. - residential direct support professional your CPAP machine and start using it for your sleep apnea. This should also help your blood pressure. - We have ordered a heart ultrasound (echocardiogram) for you. - Please schedule a follow-up appointment in about three months. Coding Level of Care Code New Pt Level 4 (84291) Add On Problem Visit Only Diagnoses HTN (hypertension) I10 Obesity (BMI 30.0-34.9) E66.811 CPT Codes EKG - CPT: 18548-Qmoskkrosqfhusjpo, Complete ([id number])
--- OUTSIDE RECORDS SUMMARY | 2025-09-19 12:36 | XMS_ITS | Encounter Summary ---
Author Organization [employer] Address [address] [place] [address] 7 [place] [address] Care Team Providers Care Icer Air Conditioning Name Role Phone Esther Hoang MD Primary Care Pro vider Reason for Visit * Reason Comments Med Refill Encounter Details Date Type Department Care Team (Late st Contact Info) Description 10/26/2024 Refill [facility] MEDICINE [address] [place] [address] Esther Hoang MD [address] [place] [address] Social History Tobacco Use Types Packs/Day Years [...] with others, in a hotel, in a alf, living outside on the street, on a [...] Description 10/18/2025 10:45 AM EST Office Visit [facility] MEDICINE [address] [place] [address] Esther Hoang MD [address] [place] [address] documented as of this encounter Visit Diagnoses Not on filedocumented in this encounter Additional Health Concerns Assessment Noted Time PHQ-9 Depression Total Score: 9 08/31/20 24 10:16 AM EST documented as of this encounter Care Teams Icer Air Conditioning Relationship Specialty Start Date End Date Esther Hoang MD [address] [place] [address] PCP - General Internal Medicine 09/15/23 documented as of this encounter
--- OUTSIDE RECORDS SUMMARY | 2025-09-19 12:36 | XMS_ITS | Encounter Summary ---
Author Organization [employer] Address [address] [place] [address] 7 [place] [address] Care Team Providers Care County Home Demonstration Agent Name Role Phone Esther Hoang MD Primary Care Pro vider Reason for Visit * Reason Onset Date Comments Medication Question 08/07/2025 Encounter Details Date Type Department Care Team ([facility] st Contact Info) Description 08/07/2025 Telephone [facility] MEDICINE [address] [place], [place] [phone] Esther Hoang MD [address] [place], [place] [phone] Medication Question Social History Tobacco Use Types [...] 40 mg, that [facility] in [place]. He may be reached at [phone]. documented in this encounter Plan of Treatment Upcoming Encounters Date Type Department Care Team (Late st Contact Info) Description 10/18/2025 10:45 AM EST Office Visit [facility] MEDICINE [address] [place] [address] Esther Hoang MD [address] [place] [address] documented as of this encounter Visit Diagnoses Not on filedocumented in this encounter Additional Health Concerns Assessment Noted Time PHQ-9 Depression Total Score: 0 04/17/20 25 2:49 PM EDT documented as of this encounter Care Teams County Home Demonstration Agent Relationship Specialty Start Date End Date Esther Hoang MD [address] [place] [address] PCP - General Internal Medicine 09/15/23 documented as of this encounter
--- OUTSIDE RECORDS SUMMARY | 2025-09-19 12:36 | XMS_ITS | Encounter Summary ---
Author Organization [employer] Address [address] [facility] 7 [place] [address] Care Team Providers Care Metal Caster Name Role Phone Esther Hoang MD Primary Care Pro vider Reason for Visit * Reason Comments Med Refill Encounter Details Date Type Department Care Team (Late st Contact Info) Description 04/19/[address] [facility] MEDICINE 230 [place] [address] Esther Hoang MD 230 [place] [address] Class 1 obesity due to excess calories [...] the past 12 months, has t he [employer], gas, oil or water company threatened to [...] 10:45 AM EST Office Visit [facility] MEDICINE [address] [place] [address] Esther Hoang MD [address] [place] [address] documented as of this encounter Visit Diagnoses [...] documented as of this encounter Care Teams Metal Caster Relationship Specialty Start Date End Date Esther Hoang MD [address] [place] [address] [phone] PCP - General Internal Medicine 09/15/23 documented as of this encounter
--- OUTSIDE RECORDS SUMMARY | 2025-09-19 12:36 | XMS_ITS | Continuity of Care Document ---
Author Organization [place] [facility], [facility] Address [address] [place] [address] Care Team Providers Care Track Layer Name Role Phone RACHEL ROSARIO Primary Care [...] he has an appointment scheduled with a enrichment director next year for further evaluation of his reflux symptoms. FOLLOW-UP: The patient will undergo a swallowing test as ordered. He is advised to follow up with the enrichment director as scheduled next year for reflux management. [email or web address] Not available 08/16/2025 15:03:08 Plan of Treatment Reminders Order Date Submit Date Provider Last Modified By Organization Details Last Modified Time Details Appointments Establish ed 30 2025 02:30P M TRICIA RECINOS MD Not available Not available Not available Lab None recorded. Referral None recorded. Procedures None recorded. Surgeries None recorded. Imaging barium swallow study 2024 025 [facility] Imaging Dept, [address], [place], [address], 09/19/2025 04:18:43 Medication Orders None recorded. Patient TargetsNo targets recorded. Patient Instructions Encounter Date Encounter Id Patient Instructions Last Modified By Joshua on Details Last Modified Time 08/16/2025 [id number] - Undergo the swallowing test as ordered. - Follow up with the enrichment director next year for reflux management. [email or web address] Not available 08/16/2025 15:03:08 Please note: Par ts of this encounter note have been generated by AI based on audio conversation. Patient consent was required prior to utilizing this technology. Content review was required prior to finalizing the note. [email or web address] Not available 08/16/2025 15:03:08 Reason for Referral None Reported. Problems Name Problem SNOMED Code Status Onset Date Resolution Date Notes Provider Name and Address Organization Details Recorded Time Dysphonia 54111041 Active 2023 Hoarsenes s; Note: Date Diagnosed : 01/19/2024 2:29 PM (R49.0) Not Available [facility] 4 03:19:00 Gastroeso phageal reflux disease without esophagit is 696968260 Active 2023 Gastro-es ophageal reflux disease without esophagit is; Note: Date Diagnosed : 01/19/2024 2:29 PM (K21.9) Not Available [facility] 4 03:19:00 Allergic rhinitis 68646594 Active 2023 Allergic rhinitis: Due to other allergen; Note: Date Diagnosed : 02/07/2024 11:06 AM (477.8) Not Available [facility] 4 03:19:00 Polyp of nasal cavity 770568734 Active 2023 TRICIA HARVEY MD [address] [facility],[place] [address], [address] , [place] [facility] 4 15:32:25 Chronic hoarsenes s 46579080165 05 Active 2023 TRICIA HARVEY MD [address] [place] [address],[place] [address], [address] , [place] [facility] 16:06:55 Deviated nasal septum 512694933 Active 2024 TRICIA HARVEY MD [address] [facility] [place],[address], [place], [address] , [place] [facility] 12:04:00 Benign inverted papilloma 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 Active 2024 TRICIA HARVEY MD [address], [place], [place], [address] , [place] [facility] 5 16:05:03 Chronic sinusitis 11999280 Active 2024 TRICIA HARVEY MD [address] [facility] [place],[address], [place], [address] , [place] [facility] 16:05:20 Gastroeso phageal reflux disease 209836516 Active 2024 TRICIA HARVEY MD [address] [facility] [place],[address], [place], [address] , [place] [facility] 16:00:14 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 TRICIA HARVEY MD [address] [facility] [place],[address], [place], [place], [address] , [place] [facility] 16:18:32 Neoplasti c disease 24785463 Active 2024 TRICIA HARVEY MD [address] [facility] [place],[address], [place], [address] , [place] [facility] 16:18:39 Dysphagia 01909255 Active 2024 TRICIA HARVEY MD [address] [facility] [place],[address], [place], [address] , [place] [facility] 15:02:11 Hoarse 87199185 Active 2024 TRICIA HARVEY MD [address],GANESH [facility], [place], [address] , [place] [facility] 15:02:16 Gastric reflux 203341183 Active 2024 TRICIA HARVEY MD [address],GANESH [facility], [place], [address] , [place] [facility] 15:02:20 Problem Notes None recorded. Procedures Surgical History Date Name Laterality Status Provider Name and Address Organization Details Recorded Time 08/16/20 25 JMSNasal/Sinus Endoscopy-PRIOR surgical cavities completed TRICIA VILLA MD [address] [facility] [place],GANESH [facility], [place], [address], [place] [facility] 08/16/2025 15:01:42 05/16/20 25 JMSNasal/Sinus Endoscopy-PRIOR surgical cavities completed TRICIA VILLA MD [address] [facility] [place],[address], [address], [place] [facility] 05/16/2025 15:42:39 05/16/20 25 Fiberoptic Laryngoscopy (Comprehensive) completed TRICIA VILLA MD [address] [facility] [place],[address], [address], [place] [facility] 05/16/2025 15:42:32 03/19/20 25 JMSNasal/Sinus Endoscopy-PRIOR surgical cavities completed TRICIA VILLA MD [address] [facility] [place],[address], [address], [place] [facility] 03/19/2025 15:56:27 03/19/20 25 Fiberoptic Laryngoscopy (Comprehensive) completed TRICIA VILLA MD [address] [facility] [place],GANESH [address] [place] [address], [address], [place] [facility] 03/19/2025 16:18:21 02/22/20 25 JMSNasal/Sinus Endoscopy-DEBRIDE MENT completed TRICIA VILLA MD [address] [facility] [place],GANESH [address] [place] [address], [address], [place] [facility] 02/21/2025 16:04:51 02/10/20 25 JMSNasal/Sinus Endoscopy-DEBRIDE MENT completed GENEVIEVE HA PA-C [address] [facility] [place],GANESH [address] [place] [address], [address], [facility] - [facility] 02/09/2025 09:55:35 02/07/20 25 nasal septoplasty completed TRICIA VILLA MD [address] [facility] [place],GANESH [address] [place] [address], [address], [facility] - [facility] 02/06/2025 16:46:28 02/07/20 25 nasal endoscopy with maxillary antrostomy completed TRICIA VILLA MD [address] [facility] [place],GANESH [address] [place] [address], [address], [facility] - [facility] 02/06/2025 16:46:36 02/07/20 25 nasal endoscopy with partial ethmoidectomy completed TRICIA VILLA MD [address] [facility] [place],[address], [address], [facility] - [facility] 02/06/2025 16:46:43 12/29/19 25 Nasal Endoscopy completed TRICIA VILLA MD [address] [facility] [place],GANESH [address] [place] [address], [address], [facility] - [facility] 12/28/2024 12:03:55 submucous resection of nasal turbinate completed TRICIA IVLLA MD [address] [facility] [place],[address], [address], [facility] - [facility] 02/06/2025 16:46:49 Imaging Results None recorded. Procedure [...] mg tablet 02/09 completed Medicati on ID: [id number] B rand Name: manuel garcia Send Method: [...] Updated DateTime 08/16/2025 177.8 cm FLORENCIO ANDERSON [place] - [facility] 08/16/2025 14:39:26 Social History None recorded. Functional Status None recorded. Mental Status None recorded. Family History Nothing Reported. Medical History Condition Response Hypertension Y GERD/Reflux Y Past Encounters Encounter ID Performer Location Encounter Start Date Encounter Closed Date Diagnosis/Indication Diagnosis SNOMED-CT Code Diagnosis ICD10 Code Diagnosis IMO Codes Diagnosis Note [id number] TRICIA HARVEY MD [facility] of [address] [address] 08/16/2025 14:33:37 08/16/2025 15:07:15 History of inverted papilloma 0541269151 20662 Z86.183 6995629 Dysphagia 88848188 R13.1 9 114346 Hoarse 88436641 R49.0 208919 Gastric reflux 885201813 K21.9 254656 Health Concerns Section Related Observation LastModified by Organization Detai ls LastModified Time None Recorded Concern Status LastModified by Organization Details LastModified Time None Recorded Payers Encounter Date Sequence Insurance Name Policy Number Policy Orozco Covered Member ID Orozco Member ID Guarantor Name 08/16/2025 1 [place] [facility] Gregory Huston [id number] Gregory Huston Notes Date Note Type Note [...] and has an appointment scheduled with a enrichment director next year. No other relevant medical history, surgeries, allergies, family history, or social history were discussed during this visit. TRICIA VILLA MD [address] [place] [address], [place], [address], [facility] - [facility] 08/16/2025 15:03:49
--- OUTSIDE RECORDS SUMMARY | 2025-09-19 12:36 | XMS_ITS | Encounter Summary ---
Author Organization [employer] Address [address] [facility] 7 [place] [address] Care Team Providers Care Manager Underwriting Name Role Phone Esther Hoang MD Primary Care Pro vider Reason for Visit * Reason Comments Med Refill Encounter Details Date Type Department Care Team (Late st Contact Info) Description 04/20/2025 Refill [facility] MEDICINE [address] [place] [address] Esther Hoang MD [address] [place] [address] Class 1 obesity due to excess calories [...] the past 12 months, has t he [employer], gas, oil or water company threatened to [...] Description 10/18/2025 10:45 AM EST Office Visit [facility] MEDICINE [address] [place] [address] Esther Hoang MD [address] [place] [address] documented as of this encounter Visit Diagnoses [...] documented as of this encounter Care Teams Manager Underwriting Relationship Specialty Start Date End Date Esther Hoang MD [address] [place] [address] [phone] PCP - General Internal Medicine 09/15/23 documented as of this encounter
--- OUTSIDE RECORDS SUMMARY | 2025-09-19 12:36 | XMS_ITS | Encounter Summary ---
Author Organization [employer] Address [address] [place] [address] 7 [place] [address] Care Team Providers Care Wort Extractor Name Role Phone Esther Hoang MD Primary Care Pro vider Reason for Visit * Reason Onset Date Comments New Patient 06/30/2023 Encounter Details Date Type Department Care Team (Late st Contact Info) Description 06/30/2023 Telephone [facility] MEDICINE [address] [place], [place] [phone] Dixon Ortiz MD [address] [place] [address] New Patient Social History Tobacco Use Types [...] PAR Cecille Alvarez called pt to Offer AMBULANCE MECHANIC appt. Pt demographics and insurance information were verified. Pt states following medical conditions: HTN, [employer] conditions that would like to discuss with pcp. Pt reports taking medications: Yes, does not have any medications, underwriter mortgage loan suggested walk in until day of appt. Pt given AMBULANCE MECHANIC appt with Dr. Mcdonald on 09/15/2023 @ 9:15 am. Pt will be sent appt reminder card and medical release form and agrees to complete and to return to medical records prior to AMBULANCE MECHANIC appt. * Telephone Encounter - Cecille Neal - 06/30/2023 3:10 PM EDT Pt has been transfer over to wait list for AMBULANCE MECHANIC. EFFECTIVE SINCE 06/30/2023 documented in this encounter Plan of Treatment Upcoming Encounters Date Type Department Care Team (Late st Contact Info) Description 10/18/2025 10:45 AM EST Office Visit [facility] MEDICINE [address] [place] [address] [phone] Esther Hoang MD [address] [place] [address] documented as of this encounter Visit Diagnoses Not on filedocumented in this encounter Care Teams Wort Extractor Relationship Specialty Start Date End Date Esther Hoang MD [address] [place] [address] PCP - General Internal Medicine 09/15/23 documented as of this encounter
--- OUTSIDE RECORDS SUMMARY | 2025-09-19 12:36 | XMS_ITS | Encounter Summary ---
Author Organization [employer] Address [address] [facility] 7 [place] [address] Care Team Providers Care Delivery Specialist Name Role Phone Esther Hoang MD Primary Care Pro vider Encounter Details Date Type Department Care Team (Late st Contact Info) Description 05/10/2025 Orders Only [facility] MEDICINE [address] [place] [address] Esther Hoang MD [address] [place] [address] Social History Tobacco Use Types Packs/Day Years [...] 10/18/2025 10:45 AM EST Office Visit [facility] MEDICINE [address] [place] [address] Esther Hoang MD [address] [place] [address] [phone] documented as of this encounter Visit Diagnoses Not on filedocumented in this encounter Additional Health Concerns Assessment Noted Time PHQ-9 Depression Total Score: 0 04/17/20 25 2:49 PM EDT documented as of this encounter Care Teams Delivery Specialist Relationship Specialty Start Date End Date Esther Hoang MD [address] [place] [address] PCP - General Internal Medicine 09/15/23 documented as of this encounter
--- OUTSIDE RECORDS SUMMARY | 2025-09-19 12:36 | XMS_ITS | Clinical Summary ---
Author Organization [facility] Address [address] [place] [address] Care Team Providers Care Intermission Coordinator Name Role Phone Unavailable Primary Care Provider Unavailabl e Social History Tobacco Use Types Packs/Day Years Used Date Smoking Tobacco: Never Assessed Sex and Gender Information Value Date Recorded Sex Assigned at Not on file Legal Sex Male 11:41 AM EDT Gender Identity Not on file Sexual Orientation Not on file Plan of Treatment Upcoming Encounters Date Type Department Care Team (Late st Contact Info) Description 10/15/2025 8:15 AM EST Appointment [facility] [address] [place] [address] Health Maintenance Due Date Last Done Comments [...] on patient's age to complete this topic Insurance [place] - [place]
--- OUTSIDE RECORDS SUMMARY | 2025-09-19 12:36 | XMS_ITS | Encounter Summary ---
Author Organization [employer] Address [address] [place] [address] 7 [place] [address] Care Team Providers Care Senior Technical Support Analyst Name Role Phone Esther Hoang MD Primary Care Pro vider Reason for Visit * Reason Onset Date Comments Med Refill 01/01/2025 Encounter Details Date Type Department Care Team (Late st Contact Info) Description 01/01/2025 Telephone [facility] MEDICINE [address] [place], [place] [phone] Esther Hoang MD [address] [place] [address] Med Refill Social History Tobacco Use Types [...] with others, in a hotel, in a m[employer], living outside on the street, on a [...] 100-25 MG tablet To be sent to: [facility]/pharmacy #[id number] [place], [place] - [address] [place] [address] documented in this encounter Plan of Treatment Upcoming Encounters Date Type Department Care Team ([facility] st Contact Info) Description 10/18/2025 10:45 AM EST Office Visit [facility] MEDICINE [address] [place] [address] Esther Hoang MD [address] [place] [address] documented as of this encounter Visit Diagnoses Not on filedocumented in this encounter Additional Health Concerns Assessment Noted Time PHQ-9 Depression Total Score: 9 08/31/20 10:16 AM EST documented as of this encounter Care Teams Senior Technical Support Analyst Relationship Specialty Start Date End Date Esther Hoang MD [address] [place] [address] PCP - General Internal Medicine 09/15/23 documented as of this encounter
--- OUTSIDE RECORDS SUMMARY | 2025-09-19 12:36 | XMS_ITS | Clinical Summary ---
Author Organization [employer] Address [address] [facility] [address] [place] [address] Care Team Providers Care Cellar Supervisor Name Role Phone Esther Hoang MD Primary Care Pro vider Allergies No known active allergies Medications * This document contains information received from the source organization and may not represent a complete record from that organization. docusate sodium (Colace) 100 MG capsule Take 1 capsule (100 mg) by mouth 2 times daily. 180 capsule 3 04/05/20 25 026 Active polycarbophil (Fibercon) 625 MG tablet Take 1 tablet (625 mg) by mouth 2 times daily. 180 tablet 3 04/05/20 25 026 Active amLODIPine (Norvasc) 5 MG tablet TAKE 1 TABLET BY MOUTH TWICE A DAY 180 tablet 07/17/20 25 Active omeprazole (PriLOSEC) [address] capsule TOME 1 CAPSULA POR VIA ORAL TODOS LOS MEJÍA 03/19/20 25 Active topiramate (Topamax) 50 MG tablet Take 1 tablet (50 mg) by mouth Once per day. 60 tablet 1 07/20/20 25 Active metoprolol succinate XL (Toprol-XL) 100 MG 24 hr tablet TAKE 1 TABLET BY MOUTH EVERY MORNING. DO NOT BREAK, CRUSH, DISSOLVE OR CHEW 90 tablet 1 07/20/20 25 Active losartan-hydro CHLOROthiazide (Hyzaar) 100-25 MG tablet TAKE 1 TABLET BY MOUTH EVERY MORNNING 90 tablet 07/20/20 25 Active naproxen (Naprosyn) 500 MG tabletIndicati ons:Epicondyli tis elbow, medial, left Take 1 tablet by oral route twice daily as needed for moderate pain 30 tablet 1 08/03/20 25 Active ammonium lactate (Amlactin) 12 % cream APPLY TOPICALLY IF NEEDED FOR DRY SKIN. 140 g 09/03/20 25 026 Active ammonium lactate (Amlactin) 12 % cream APPLY TOPICALLY IF NEEDED FOR DRY SKIN. 140 g 05/02/20 25 025 Discontinued Active Problems Problem Noted [...] move, and housing. Gregory recently moved from [place] to [place] with his and three kids. Tragic deaths [...] and violence and feeling not safe in [place] . Gregory recently moved [place] with his and three kids. Tragic deaths [...] of violence and feeling not safe in [place]. Gregory recently moved [place] with his and three kids. Tragic deaths [...] move, and housing. Gregory recently moved from [place] to [place] with his and three kids. Tragic deaths [...] and violence and feeling not safe in [place] . Gregory recently [place] with his and three kids. Tragic deaths [...] of violence and feeling not safe in [place]. Gregory recently moved [place] with his and three kids. Tragic deaths [...] move, and housing. Gregory recently moved from [place] to [place] with his and three kids. Tragic deaths [...] and violence and feeling not safe in [place] . [place] with his and three kids. Tragic deaths [...] of violence and feeling not safe in [place]. Gregory recently [place] with his and three kids. Tragic deaths [...] Encounters Date Type Department Care Team Description 09/01/2025 Refill [facility] [place] [address] Esther Hoang MD 08/21/2025 1:00 PM EST Office Visit [facility] [place] [address] hWitney Villalta MD Left elbow pain (Primary Dx) 08/21/2025 Results Follow-Up [facility] [place] [address] Whitney Villalta MD XR Elbow 3+ Views Left 08/21/2025 Travel 08/10/2025 Telephone [facility] [address] [place] [phone] [facility] Cardiology Info 08/07/[address] [address] Esther Hoang MD Medication Question 08/07/[address] [address] Esther Hoang MD DME Elbow brace 08/03/2025 10:00 AM EST Office Visit [facility] [place] [address] [place], [place], 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 Epicondylitis elbow, medial, left (Primary Dx) 08/03/2025 Travel 07/23/2025 Results Follow-Up [address] [place] [address] Esther Hoang MD Albumin, Random Urine W/Creatinine, CBC auto differential, Comprehensive Metabolic Panel, Additional followed-up results: 10 07/20/2025 1:00 PM EDT Office Visit [facility] [address] [place], [place] [address] [address] Esther Hoang MD Health care maintenance (Primary Dx); Palpitations; Uncontrolled hypertension; Hypertension, unspecified type; Dysphonia; Class 1 obesity due to excess calories without serious comorbidity with body mass index (BMI) of 31.0 to 31.9 in adult; MICHAEL (obstructive sleep apnea) 07/20/2025 Telephone [facility] [address] [place] [phone] Esther Hoang MD 07/20/2025 Travel 07/19/[address] [address] Esther Hoang MD chart prep 07/16/[address] [address] Esther Hoang MD 07/13/2025 Patient Outreach [address] [address] Esther Hoang MD Pre-visit Planning (SDOH screening was completed on 02/07/2025) 07/03/2025 3:00 PM EDT Office Visit [facility] [address] [place] [phone] Jenifer Peck MD Primary hypertension (Primary Dx) 07/03/2025 Travel 06/25/[address] [address] Esther Hoang MD Appointment from Last 3 Months Immunizations Immunization Administration [...] Description 10/18/2025 10:45 AM EST Office Visit [facility] [address] [place], [place] [phone] Esther Hoang MD [address] [place], [place] [phone] Health Maintenance Due Date Last Done Comments [...] Disability Screening 04/17/2026 04/17/2025 Diabetes: Hemoglobin A1C 07/23/202607/23/ 025, 08/31/2024, 09/15/2023 Tobacco Screening 08/21/2026 08/21/2025 [...] maintenance TSH W/REFLEX TO FT4 Routine 07/23/2025 8 :15 AM EDT Health care maintenance SYPHILIS SCREEN [...] hypertension ECG 12-LEAD Routine 07/03/2025 Primary hypertension from Last 3 Months Results * XR Elbow 3+ Views Left (08/21/2025 1:40 PM EST) Anatomical Region Laterality Modality Upper Extremities, Elbow Left Radiogr aphic Imaging 08/21/2025 1:40 PM EST Narrative 08/21/2025 1:48 [place] [address] XRay Report Signed Patient: Gregory Petty MR#: [id number] : 1990 Acct:[id number] Age/Sex: 34 / M ADM Date: 08/21/25 Loc: HO.HHCX Attending Dr: Whitney Villalta MD Ordering Physician: Whitney Villalta MD Date of Service: 08/21/25 Procedure(s): XR elbow LT min 3V Accession Number(s): [id number] cc: Whitney Villalta MD Reason for Exam: [...] 08/21/25 1345 DD/ 1340 TD/TT: 08/21/25 1341 Engineering Leader: Procedure Note Donotuseinterpreter, Image - 08/21/[address] [address] XRay Report Signed Patient: Gregory Petty R#: [id number] : 1990Acct:[id number] Age/Sex: 34 / MADM Date: 08/21/25 Loc: HO.HHCX Attending Dr: Whitney Villalta MD Ordering Physician: Whitney Villalta MD Date of Service: 08/21/25 Procedure(s): XR elbow LT min 3V Accession Number(s): [id number] cc: Whitney Villalta MD Reason for Exam: [...] 08/21/25 1345 DD/ 1340 TD/TT: 08/21/25 1341 Engineering Leader: us Whitney Villalta MD IMG XR PROCEDURES Final Re sult * Chlamydia/Trichomonas/Neisseria gonorrhoeae, PCR, Urine (07/23/2025 8:15 AM EDT) CT PCR, Urine NOT DETECTED Not Detect. [facility] Comment:A not detected test result does [...] NG PCR, Urine NOT DETECTED Not Detect. [facility] Comment:A not detected test result does [...] MD LAB URINE ORDERAB LES Final Result [facility] [address] [place] [phone] * Syphilis Screen (07/23/2025 8:15 AM EDT) Syphilis Screen Nonreactive Nonreactive [facility] Blood 07/23/2025 8:15 AM EDT 07/23/2025 11:32 AM EDT us Esther Keane MD LAB BLOOD ORDERAB LES Final Result [facility] [address] [place] [phone] * Vitamin D, 25-Hydroxy, Total, Immunoassay (07/23/2025 8:15 AM EDT) Vitamin D 25-OH Total 54.1 >30 ng/mL [facility] Comment: Health Based Reference Values*< 20 ng/mL [id number] ng/mL Insufficient> 30 ng/mL Sufficient*Robert [place]. N [...] ORDERAB LES Final Result Performing Organization Address [facility]/ZIP Co de Phone Number [facility] [address] [place] [phone] * TSH with Reflex to Free T4 (07/23/2025 8:15 AM EDT) TSH reflex Free T4 1.73 0.32 - 4.0 uIU/mL [facility] Blood 07/23/2025 8:15 AM EDT 07/23/2025 11:39 AM EDT us Esther Keane MD LAB BLOOD ORDERAB LES Final Result Performing Organization Address [facility] de Phone Number [facility] [address] [place] [phone] * Albumin, Random Urine W/Creatinine (07/23/2025 8:15 AM EDT) Creatinine, Urine 265.39 mg/dL [facility] Microalbumin Urine 16.0 mg/L [facility] Microalbum Creatinine Ratio Ur 6.0 <30 ug/mg cr [facility] Comment:Albumin/Creatinine R atio Reference Ranges: Normal: < 30 ug/mg creatinine Microalbuminuria: 30 - 300 ug/mg creatinineClinical Albuminuria: > 300 ug/mg creatinine Urine (Urine, Random) 07/23/2025 8:15 AM EDT 07/23/2025 11:16 AM EDT us Esther Keane MD LAB URINE ORDERAB LES Final Result Performing Organization Address [facility] Co de Phone Number [facility] [address] [place] [phone] * CBC auto differential (07/23/2025 8:15 AM EDT) White Blood Count 7.5 4.8 - 10.8 X10*3/uL [facility] Red Blood Count 5.30 4.60 - 5.80 X10*6/uL [facility] Hemoglobin 14.9 14.0 - 18.0 g/dl [facility] Hematocrit 44.6 42.0 - 52.0 % [facility] Mean Corpuscular Volume 84.2 80.0 - 98.0 fL [facility] Mean Corpuscular Hemoglobin 28.1 27.0 - 33.0 pg [facility] Mean Corpuscular HGB Conc 33.4 31.0 - 36.0 g/dl [facility] Red Cell Distribution Width 13.2 11.0 - 16.0 % [facility] Platelet Count 279 160 - 400 X10*3/uL [facility] Mean Platelet Volume 10.5 9.4 - 12.4 fL [facility] Neutrophils Percent Auto 61.9 45 - 73 % [facility] Imm Gran Pct Auto 0.3 0.0 - 0.4 % [facility] Lymphocytes Percent Auto 26.0 20 - 40 % [facility] Monocytes Percent Auto 7.0 2 - 11 % [facility] Eosinophils Percent Auto 4.0 0 - 4 % [facility] Basophils Percent Auto 0.8 0 - 2 % [facility] NRBC Pct Auto 0.0 0.0 - 0.2 /100WBC [facility] Neutrophils Absolute Auto 4.6 2.0 - 8.3 x10*3/uL [facility] Imm Gran Abs Auto 0.02 0.00 - 0.03 X10*3/uL [facility] Lymphocytes Absolute Auto 1.9 1.2 - 4.9 X10*3/uL [facility] Monocytes Absolute Auto 0.5 0.1 - 1.2 X10*3/uL [facility] Eosinophils Absolute Auto 0.3 0.0 - 0.4 X10*3/uL [facility] Basophils Absolute Auto 0.1 0.0 - 0.2 X10*3/uL [facility] NRBC Abs Auto 0.000 0.0 - 0.012 X10*3/uL [facility] Blood Venous blood specimen / Unknown 07/23/2025 8:15 AM EDT 07/23/2025 11:32 AM EDT us Esther Keane MD LAB BLOOD ORDERAB LES Final Result [facility] [address] [place] [phone] * Hepatitis C Antibody with Reflex to HCV, RNA, Quantitative, Real-Time PCR (07/23/2025 8:15 AM EDT) Hepatitis C Antibody Nonreactive Nonreactive [facility] Comment:Antibodies to HCV no t detected; does not exclude early acuteHCV infection. Blood Venous blood specimen / Unknown 07/23/2025 8:15 AM EDT 07/23/2025 11:32 AM EDT us Esther Keane MD LAB BLOOD ORDERAB LES Final Result Performing Organization Address City/[facility]/ZIP Co de Phone Number [facility] [address] [place] [phone] * Hepatitis B surface antigen, EIA (07/23/2025 8:15 AM EDT) Hepatitis B Surface Ag Negative Negative [facility] Blood Venous blood specimen / Unknown 07/23/2025 8:15 AM EDT 07/23/2025 11:32 AM EDT us Esther Keane MD LAB BLOOD ORDERAB LES Final Result Performing Organization Address City/[facility]/ZIP Co de Phone Number [facility] [address] [place] [phone] * Hepatitis B Core Antibody, Total (07/23/2025 8:15 AM EDT) Hepatitis B Core Antibody Nonreactive Nonreactive [facility] Blood Venous blood specimen / Unknown 07/23/2025 8:15 AM EDT 07/23/2025 11:32 AM EDT Esther Keane MD LAB BLOOD ORDERAB LES Final Result Performing Organization Address City/[facility] Co de Phone Number [facility] [address] [place] [phone] * HIV-1/2 Antigen and Antibodies, Fourth Generation, with Reflexes (07/23/2025 8:15 AM EDT) HIV AB/AG Nonreactive Nonreactive [facility] Comment:HIV-1 p24 Ag and/or HIV-1/HIV-2 Ab not detected.A test result that is nonreactive does not exclude thepossibility of exposure to or infection with HIV-1 and/orHIV-2. Nonreactive results in this assay for individualswith prior exposure to HIV-1 and/or HIV-2 may be due toantigen and antibody levels that are below the limit ofdetection of this assay.The [employer] HIV Ag/Ab Combo assay result andsupplemental assay results should be interpreted inconjunction with the patient's clinical presentation,history and other laboratory results. If the results areinconsistent with clinical evidence, additional testing issuggested to confirm the result. Blood Venous blood specimen / Unknown 07/23/2025 8:15 AM EDT 07/23/2025 11:32 AM EDT us Esther Kenae MD LAB BLOOD ORDERAB LES Final Result Performing Organization Address City/[facility]/ZIP Co de Phone Number [facility] [address] [place] [phone] * Hepatitis B Surface Antibody, Qualitative (07/23/2025 8:15 AM EDT) ~Hepatitis B Surface Antibody NONREACTIVE Nonreactive [facility] Comment:Nonreactive: < 8.00 mIU/mL Blood Venous blood specimen / Unknown 07/23/2025 8:15 AM EDT 07/23/2025 11:32 AM EDT us Esther Keane MD LAB BLOOD ORDERAB LES Final Result Performing Organization Address City/[facility]/ZIP Co de Phone Number [facility] [address] [place] [phone] * Hemoglobin A1c (07/23/2025 8:15 AM EDT) Hemoglobin A1c 5.7 <6.0 % [facility] Comment:Hemoglobin A1C Refer ence Range Adults: 4.8 - 6.0 % Non diabetic: < 6.0 % Goal: < 7.0 %Additional Action Suggested: > 8.0 %Note: Hemoglobin A1c results are invalid for patients with abnormal amounts of HbF. Blood transfusions may impact the HbA1c concentration in the patient sample. Estimated Average Glucose 117 mg/dL [facility] Comment:eAG = Estimated ave rage glucose which is %A1C expressed asaverage glucose, using the formula of the J4A-[id number] Glucose study (ADAG), Diabetes Care, Vol.31,#8,Apr. 2007 Blood Venous blood specimen / Unknown 07/23/2025 8:15 AM EDT 07/23/2025 11:32 AM EDT us Esther Keane MD LAB BLOOD ORDERAB LES Final Result Performing Organization Address City/[facility]/ZIP Co de Phone Number [facility] [address] [place] [phone] * (ABNORMAL) Lipid Panel, Standard (07/23/2025 8:15 AM EDT) Triglycerides 62 <150 mg/dL [facility] Comment:Desirable Triglyceri de: less than 150 mg/dLBorderline High Triglyceride 150-199 mg/dLHigh Triglyceride: 200-499 mg/dLVery High Triglyceride: greater than or equal to 5OO mg/dL Cholesterol 152 <200 mg/dL [facility] Comment:Desirable Cholestero l: less than 200 mg/dLBorderline High Cholesterol: 200-239 mg/dLHigh Cholesterol: greater than 239 mg/dL LDL Cholesterol Calculated 101(H) <100 mg/dL [facility] Comment:Desirable LDL: less than 100 mg/dLNear Optimal/Above Optimal LDL: 110- 129 mg/dLBorderline High LDL: 130-159 mg/dLHigh LDL: 160-189 mg/dLVery High LDL: greater than or equal to 190 mg/dL HDL Cholesterol 39(L) >40 mg/dL [facility] Comment:Desirable HDL: great er than 40 mg/dL Note: This HDL assay may give artificially low results in patients with liver disease. Blood Venous blood specimen / Unknown 07/23/2025 8:15 AM EDT 07/23/2025 11:39 AM EDT us Esther Keane MD LAB BLOOD ORDERAB LES Final Result [facility] [address] [place] [phone] * (ABNORMAL) Comprehensive Metabolic Panel (07/23/2025 8:15 AM EDT) Sodium 138 135 - 145 mmol/L [facility] Potassium 4.2 3.3 - 5.1 mmol/L [facility] Chloride 106 96 - 108 mmol/L [facility] Carbon Dioxide 27 22 - 29 mmol/L [facility] Anion Gap 9(L) 12 - 20 [facility] Urea Nitrogen (BUN) 17(H) 9 - 16 mg/dL [facility] Creatinine, Serum 0.92 0.5 - 1.4 mg/dL [facility] Estimated Glomerular Filt Rate >60 [facility] Comment:Chronic Kidney Disea se: Estimated GFR < 60 mL/min/1.39o0Afekii Kidney Disease: Estimated GFR < 15 mL/min/1.73m2 Glucose 99 60 - 115 mg/dL [facility] Calcium 9.2 8.4 - 10.2 mg/dL [facility] Bilirubin, Total 0.4 0.0 - 1.0 mg/dL [facility] Aspartate Amino Transferase 30 5 - 37 U/L [facility] Alanine Aminotransferase 40 0 - 40 U/L [facility] Total Protein 7.5 6.5 - 8.0 g/dL [facility] Albumin Level 4.7 3.5 - 5.0 g/dL [facility] Alkaline Phosphatase 71 39 - 117 U/L [facility] Blood Venous blood specimen / Unknown 07/23/2025 8:15 AM EDT 07/23/2025 11:39 AM EDT us Esther Keane MD LAB BLOOD ORDERAB LES Final Result [facility] [address] [place] [phone] * ECG 12 lead (07/20/2025 1:56 PM EDT) Only the most recent of3 resultswithin the time period is included. Narrative Esther Hoang MD - 07/20/2025 1:56 PM EDT EKG today HR 71, QTC 419, slight IV conduction delay , no ischemic changes us Esther Keane MD ECG ORDERABLES F inal Result from Last [address] [place] [address] [place] [address] 2 Care Teams Cellar Supervisor Relationship Specialty Start Date End Date Esther Hoang MD [address] [place] [phone] PCP - General Internal Medicine 09/15/23
--- OUTSIDE RECORDS SUMMARY | 2025-09-19 12:36 | XMS_ITS | Encounter Summary ---
Author Organization [employer] Address [address] [place] [address] 7 [place] [address] Care Team Providers Care Trimmer Helper Name Role Phone Esther Hoang MD Primary Care Pro vider Reason for Visit * Reason Onset Date Comments Med Refill 10/21/2023 Encounter Details Date Type Department Care Team (Late st Contact Info) Description 10/21/2023 Telephone [facility] [address] [place] [phone] Esther Hoang MD [address] [place] [address] Med Refill Social History Tobacco Use Types [...] with others, in a hotel, in a halfway, living outside on the street, on a [...] the past 12 months, has t he [employer], gas, oil or water company threatened to [...] 40 MG tablet To be sent to: [facility] - [place], [place] - [address] [place] [address] documented in this encounter Plan of Treatment Upcoming Encounters Date Type Department Care Team ([facility] st Contact Info) Description 10/18/2025 10:45 AM EST Office Visit [facility] [address] [place], [place] [phone] Esther Hoang MD [address] [place], [place] [phone] documented as of this encounter Visit Diagnoses Not on filedocumented in this encounter Additional Health Concerns Assessment Noted Time PHQ-9 Depression Total Score: 16 023 11:04 AM EST documented as of this encounter Care Teams Trimmer Helper Relationship Specialty Start Date End Date Esther Hoang MD [address] [place] [address] PCP - General Internal Medicine 09/15/23 documented as of this encounter
--- OUTSIDE RECORDS SUMMARY | 2025-09-19 12:37 | XMS_ITS | Data Portability ---
Author Organization [place] - [facility], Allergy Address [address] [address] Care Team Providers Care Assistant To The Vice President Name Role Phone RACHEL ROSARIO Primary Care [...] Gourmet before meals and at bedtime Eloisa parts interpreter [id number] jojo Not available 03/19/2025 16:19:38 05/16/2025 05/16/2025 [...] he has an appointment scheduled with a adult literacy teacher next year for further evaluation of his reflux symptoms. FOLLOW-UP: The patient will undergo a swallowing test as ordered. He is advised to follow up with the adult literacy teacher as scheduled next year for reflux management. [email or web address] Not available 08/16/2025 15:03:08 Plan of Treatment Reminders Order Date Submit Date Provider Last Modified By Organization Details Last Modified Time Details Appointments Establi shed 30 2025 02:30P M STEFAN RECINOS MD Not available Not available Not available Lab None recorde d. Referral speech therapy referra l 2024 025 [facility], [facility] Chaim Nury, [address] Floor, [place], [address], 05/18/2025 11:03:36 Procedures None recorde d. Surgeries None recorde d. Imaging barium swallow study 2024 025 [facility], [address] [place] [address], [id number], 09/19/2025 04:18:43 Medication Orders omepraz ole 40 mg capsule ,delaye d release 2024 025 [facility]/Pharmacy #[id number], [address] [place] [address], [id number], 03/19/2025 16:01:19 Patient TargetsNo targets recorded. Patient Instructions Encounter Date Encounter Id Patient Instructions Last Modified By Joshua on Details Last Modified Time 05/16/2025 [id number] Schedule and attend speech therapy sessions. Return for follow-up in July. [email or web address] Not available 05/16/2025 15:41:13 Please note: Par ts of this encounter note have been generated by AI based on audio conversation. Patient consent was required prior to utilizing this technology. Content review was required prior to finalizing the note. [email or web address] Not available 05/16/2025 15:41:13 08/16/2025 [id number] - Undergo the swallowing test as ordered. - Follow up with the adult literacy teacher next year for reflux management. [email or web address] Not available 08/16/2025 15:03:08 Please note: Par [...] Abnormal Flag Note LastModifiedBy Organization Detail LastModifiedTime 02/14/2002/06/2025 clini cyndi photo * No observ ation record ed. [email or web address] Not Available 01/26 09:06:58 02/14/2002/06/2025 clini cyndi photo * No observ ation record ed. Not Available 01/26 09:08:15 Result Notes None recorded. Problems Name Problem SNOMED Code Status Onset Date Resolution Date Notes Provider Name and Address Organization Details Recorded Time Dysphonia 79157363 Active 2023 Hoarsenes s; Note: Date Diagnosed : 01/19/2024 2:29 PM (R49.0) Not Available [facility] 4 03:19:00 Gastroeso phageal reflux disease without esophagit is 417040260 Active 2023 Gastro-es ophageal reflux disease without esophagit is; Note: Date Diagnosed : 01/19/2024 2:29 PM (K21.9) Not Available [facility] 4 03:19:00 Allergic rhinitis 64346104 Active 2023 Allergic rhinitis: Due to other allergen; Note: Date Diagnosed : 02/07/2024 11:06 AM (477.8) Not Available [facility] 4 03:19:00 Polyp of nasal cavity 512292024 Active 2023 MD Dixie TRAN [facility],[place] [address], [place], [address] , [facility] - [facility] 4 15:32:25 Chronic hoarsenes s 88454646581 05 Active 2023 STEFAN HARVEY MD [address] [place] [address],[place] [address], [place], [address] , [facility] - [facility] 5 16:06:55 Deviated nasal septum 652029461 Active 2024 MD Dixie TRAN [facility],[place] [address], [place], [address] , [place] [facility] 5 12:04:00 Benign inverted papilloma 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 9103 Active 2024 MD Dixie TRAN [facility],[place] [address], [address] , [place] [facility] 5 16:05:03 Chronic sinusitis 34480966 Active 2024 MD Dixie TRAN [facility],[place] [address], [address] , [place] - [facility] 5 16:05:20 Gastroeso phageal reflux disease 317689033 Active 2024 STEFAN HARVEY MD [address] [facility],[place] [address], [place], [address] , [place] [facility] 16:00:14 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 STEFAN HARVEY MD [address] [facility],[place] [address], [place], [address] , [place] [facility] 16:18:32 Neoplasti c disease 69260290 Active 2024 STEFAN HARVEY MD [address] [facility],[place] [address], [place], [address] , [place] [facility] 16:18:39 Dysphagia 48557106 Active 2024 STEFAN HARVEY MD [address] [facility],[place] [address], [place], [address] , [place] [facility] 15:02:11 Hoarse 02264248 Active 2024 STEFAN HARVEY MD [address] [facility],[place] [address], [place], [address] , [place] [facility] 15:02:16 Gastric reflux 852558873 Active 2024 STEFAN HARVEY MD [address] [facility],[place] [address], [place], [address] , [facility] - [facility] 5 15:02:20 Problem Notes None recorded. Procedures Surgical History Date Name Laterality Status Provider Name and Address Organization Details Recorded Time 08/16/20 JMSNasal/Sinus Endoscopy-PRIOR surgical cavities completed STEFAN VILLA MD [address] [facility] [place] [facility], [place], [address], [place] [facility] 08/16/2025 15:01:42 05/16/20 25 JMSNasal/Sinus Endoscopy-PRIOR surgical cavities completed STEFAN VILLA MD [address] [place],GAN[place] [address] [place] [address], [address], [place] [facility] 05/16/2025 15:42:39 05/16/20 25 Fiberoptic Laryngoscopy (Comprehensive) completed STEFAN VILLA MD [address],GANESH [address] [place] [address], [address], [place] [facility] 05/16/2025 15:42:32 03/19/20 25 JMSNasal/Sinus Endoscopy-PRIOR surgical cavities completed STEFAN VILLA MD [address] [facility] [place],GAN[place] [address] [place] [address], [address], [place] [facility] 03/19/2025 15:56:27 03/19/20 25 Fiberoptic Laryngoscopy (Comprehensive) completed STEFAN VILLA MD [address] [facility] [place],GAN[place] [address] [place] [address], [address], [place] [facility] 03/19/2025 16:18:21 02/22/20 25 JMSNasal/Sinus Endoscopy-DEBRIDE MENT completed STEFAN VILLA MD [address] [facility] [place],GAN[place] [address] [place] [address], [address], [place] [facility] 02/21/2025 16:04:51 02/10/20 25 JMSNasal/Sinus Endoscopy-DEBRIDE MENT completed GENEVIEVE HA PA-C [address] [facility] [place],GAN[place] [address] [place] [address], [address], [place] [facility] 02/09/2025 09:55:35 02/07/20 25 nasal septoplasty completed STEFAN VILLA MD [address],GAN[place] [address] [place] [address], [address], [place] [facility] 02/06/2025 16:46:28 02/07/20 25 nasal endoscopy with maxillary antrostomy completed STEFAN VILLA MD [address],[place] [address], [place], [address], [place] [facility] 02/06/2025 16:46:36 02/07/20 25 nasal endoscopy with partial ethmoidectomy completed STEFAN VILLA MD [address] [facility] [place] [facility], [place], [address], [facility] 02/06/2025 16:46:43 12/29/19 25 Nasal Endoscopy completed STEFAN VILLA MD [address], [place], [address], [facility] 12/28/2024 12:03:55 submucous resection of nasal turbinate completed STEFAN VILLA MD [address], [place], [address], [facility] 02/06/2025 16:46:49 Imaging Results None recorded. Procedure [...] mg tablet 02/09 completed Medicati on ID: [id number] B rand Name: manuel garcia Send Method: [...] Updated DateTime 02/09/2025 177.8 cm 34.4 kg/m2 071666.17 g Kallie Gómez [place] - [facility] 02/09/2025 09:36:23 Date Recorded Body height Body mass index (BMI) Body weight Provider Name and Address Organization Details Last Updated DateTime 03/19/2025 177.8 cm 35.2 kg/m2 914123.13 g Kallie Gómez [place] - [facility] 03/19/2025 15:36:51 Date Recorded Body height Provider Name an d Address Organization Details Last Updated DateTime 08/16/2025 177.8 cm FLORENCIO ANDERSON [place] [facility] 08/16/2025 14:39:26 Social History None recorded. Functional Status None recorded. Mental Status None recorded. Family History Nothing Reported. Medical History Condition Response Hypertension Y GERD/Reflux Y Past Encounters Encounter ID Performer Location Encounter Start Date Encounter Closed Date Diagnosis/Indication Diagnosis SNOMED-CT Code Diagnosis ICD10 Code Diagnosis IMO Codes Diagnosis Note [id number] STEFAN HARVEY MD [facility] [address] [address] 03/10/2024 08:29:32 03/10/2024 09:05:57 Polyp of nasal cavity 136736017 J33.0 CT pending. Allergy minimal CT end of the month. Brochure given re sinus surgery Chronic hoarseness 49499 20381 105 R49.0 waiting for speech therapy. Working with PCP on GERD management [id number] STEFAN HARVEY MD [facility] [address] [address] 12/28/2024 10:32:28 12/28/2024 12:13:10 Allergic rhinitis 90866240 J30.9 Polyp of nasal cavity 73 0806138 J33.0 The risks and benefits of endoscopic [...] the near future. Deviated nasal septum 12 1486334 J34.2 [id number] GENEVIEVE HA PA-C [facility] [address] [address] 02/09/2025 09:29:02 02/09/2025 09:55:45 Deviated nasal septum 920065679 J34.2 Polyp of nasal cavity 73 1228140 J33.0 [id number] STEFAN HARVEY MD [facility] [address] [address] 02/21/2025 15:30:36 02/22/2025 13:17:17 Benign inverted papilloma 6632997803 92973 D36.9 5443770142 Chronic sinusitis 624034 00 J32.8 72987 Needs aggressive saline irrigation s twice daily Chronic hoarseness 47931 28073 105 R49.0 4815989 FOL next visit [id number] STEFAN HARVEY MD [facility] [address] [address] 03/19/2025 15:12:55 03/19/2025 16:05:13 Gastroesophageal reflux disease 281079431 K21.9 11007219 Benign elvira plasm of accessory sinus 63371171 D14.0 51974147 No evidence of persistent or recurrent inverted papilloma at the present time. There is a small amount of swelling along the inferior aspect of the maxillary ostium. We discussed possibly proceeding with medial maxillecto my. He wants to see how things go over the next couple of months. Chronic hoarseness 87045 00296 105 R49.0 9658132 FOL next visit [id number] STEFAN HARVEY MD [facility] [address] [address] 05/16/2025 15:10:42 05/16/2025 15:42:34 Gastroesophageal reflux disease 822530969 K21.9 59743500 Benign elvira plasm of accessory sinus 88208651 D14.0 91753591 No evidence of persistent or recurrent inverted papilloma at the present time. Chronic hoarseness 00896 65739 105 R49.0 0948954 [id number] STEFAN HARVEY MD [facility] [address] [address] 08/16/2025 14:33:37 08/16/2025 15:07:15 History of inverted papilloma 1776888622 36231 Z86.922 4656070 Dysphagia 41853799 R13.1 9 222753 Hoarse 61769313 R49.0 103939 Gastric reflux 367819803 K21.9 484434 Health Concerns Section Related Observation LastModified by Organization Detai ls LastModified Time None Recorded Concern Status LastModified by Organization Details LastModified Time None Recorded Advance Directives Directive None Recorded Payers Insurance Date Sequence Insurance Name Policy Number Policy Orozco Covered Member ID Orozco Member ID Guarantor Name 08/15/2025 1 [place] [facility] Gregory Huston [id number] Gregory Huston Notes Date Note Type Note [...] pain with tylenol. STEFAN VILLA MD [address] [facility],[address], [address], [place] [facility] 02/09/2025 10:38:43 03/19/2025 text/html Hx of right inverted papilloma. Chronic hoarseness feels worse lately. More GERD recently.Famotidine not controlling sx STEFAN VILLA MD [address] [facility],[place] [address], [place], [address], [place] [facility] 03/19/2025 16:20:21 05/16/2025 text/html Gregory Huston is a 34-year-old male who presents for follow-up evaluation of a papilloma. He reports no breathing difficulties, bleeding, or nasal obstruction. He has a history of chronic vocal cord swelling and hyperfunction, with lifelong hoarseness. He notes that his voice has recently worsened, sounding more broken and less clear than usual. STEFAN VILLA MD [address] [facility] [place] [address], [place], [address], [place] [facility] 05/16/2025 17:07:46 08/16/2025 text/html Gregory Huston is [...] and has an appointment scheduled with a adult literacy teacher next year. No other relevant medical history, surgeries, allergies, family history, or social history were discussed during this visit. STEFAN VILLA MD [address] [place] [address], [address], [facility] - [facility] 08/16/2025 15:03:49
[2025-09-19 12:40] VITALS: BP 130/80; PULSE 55; BMI 34.2
== END 2025-09-19 13:07 | disposition home or self-care (01) ==
PROVIDERS: PCP Student in an Organized Health Care Education/Training Program; Visit Provider Internal Medicine
DX: I10 Essential (primary) hypertension (principal); E66.811 Obesity, class 1
CPT/HCPCS: 93010; 99204

== ENCOUNTER → 2025-09-19 12:33 | Outpatient (BNVA) | payer MEDICAID, SELFPAY | PROVIDERS: PCP Student in an Organized Health Care Education/Training Program; Visit Provider Internal Medicine | DX: I10 Essential (primary) hypertension (principal); G47.33 Obstructive sleep apnea (adult) (pediatric); E66.811 Obesity, class 1; Z79.899 Other long term (current) drug therapy; Z68.34 Body mass index [BMI] 34.0-34.9, adult | CPT/HCPCS: 93005; 99202 ==